=== PATIENT | male | born 1940 | race Caucasian/White ===

== ENCOUNTER 2019-08-07 12:09 | Outpatient (CLI) | payer MEDICARE, SELFPAY ==
--- NOTE | 2019-08-07 13:03 | ECHO_ITS ---
Patient Info Name: Jason Justin Age: 79 years : 1940 Gender: Male Ht: 68 in Wt: 177 lbs BSA: 1.98 m2 HR: 90 bpm BP: 146 / 82 mmHg Technical Quality: Fair Exam Date: 08/07/2019 1:14 PM Exam Location: [facility] Patient Status: Outpatient Admit Date: 08/07/2019 Staff Ordering Physician: Tonja Arias Spreader Operator: Slade Weston, CHIOMA, RT Attending Provider: Tonja Arias Referring Physician: Juana MAURER; Exam Type: CA echo doppler color flow Study Info Indications R42 - Dizziness and giddiness Complete two-dimensional, color flow and Doppler transthoracic echocardiogram is performed. Summary 1. No apical images acquired. Cannot assess complete wall motion analysis. 2. Left ventricular chamber dimension is normal. 3. Left ventricular systolic function is normal, estimated at 55-60%. 4. There is mildly increased left ventricular wall thickness. 5. The left ventricular diastolic function is grade I diastolic dysfunction. 6. E/e' 6 is not elevated. 7. The aortic valve is not well visualized. 8. There is mild aortic valve stenosis based on a peak velocity of 202 cm/s, mean gradient of 6 mmHg, and aortic valve area of 2.0 cm2. 9. There is moderate aortic valve sclerosis. 10. There is trace aortic valve regurgitation. 11. There is trace pulmonic regurgitation. Left Ventricle No apical images acquired. Cannot assess complete wall motion analysis. E/e' 6 is not elevated. Left ventricular chamber dimension is normal. Left ventricular systolic function is normal, estimated at 55-60%. There is mildly increased left ventricular wall thickness. The left ventricular diastolic function is grade I diastolic dysfunction. Right Ventricle Right ventricular chamber dimension is not well visualized. Left Atria Left atrial chamber dimension is normal. Right Atria Right atrial chamber dimension is not well visualized. Aortic Valve There is mild aortic valve stenosis based on a peak velocity of 202 cm/s, mean gradient of 6 mmHg, and aortic valve area of 2.0 cm2. Cannot determine number of aortic valve leaflets. The aortic valve is not well visualized. There is moderate aortic valve sclerosis. There is trace aortic valve regurgitation. Pulmonic Valve There is trace pulmonic regurgitation. Mitral Valve There is no mitral valve stenosis. There is no mitral valve regurgitation. Tricuspid Valve The tricuspid valve leaflets are not well visualized. Pericardium/Pleural There is no pericardial effusion. Inferior Vena Cava Normal inferior vena cava with >50% collapse upon inspiration consistent with normal right atrial pressure, 5 mmHg. Aorta The aortic root size at the sinus of Valsalva is not well visualized. Left Ventricular Outflow Tract Name Value Normal LVOT 2D LVOT Diameter 2.0 cm LVOT Doppler LVOT Peak Gradient 6 mmHg LVOT Mean Gradient 3 mmHg LVOT VTI 21 cm LVOT VTI/AV VTI Ratio 0.6 LVOT Stroke Volume 68 ml
== END 2019-08-07 12:10 | disposition home or self-care (01) ==
PROVIDERS: PCP Internal Medicine; Visit Provider Nurse Practitioner
DX: R42 Dizziness and giddiness (principal); I35.8 Other nonrheumatic aortic valve disorders
CPT/HCPCS: 93306

== ENCOUNTER 2019-11-20 14:20 | Outpatient (CLI) | payer MEDICARE, SELFPAY ==
[2019-11-20 15:22] LABS: Calcium 10.1 mg/dL (8.4-10.2)
[2019-11-20 15:34] LABS: Parathyroid Intact 140.7 pg/mL (7.5-53.5)
== END 2019-11-20 14:21 | disposition home or self-care (01) ==
PROVIDERS: PCP Internal Medicine; Visit Provider Nurse Practitioner
DX: E34.9 Endocrine disorder, unspecified (principal)
CPT/HCPCS: 36415; 82310; 83970

== ENCOUNTER 2020-01-23 14:20 | Outpatient (CLI) | payer MEDICARE, SELFPAY ==
[2020-01-23 15:12] LABS: Albumin Level 4.4 g/dL (3.5-5.1); Anion Gap 7 mmol/L (8-16); Blood Urea Nitrogen 18 mg/dL (9-20); Calcium 9.6 mg/dL (8.4-10.2); Carbon Dioxide 32 mmol/L (22-30); Chloride 97 mmol/L (98-107); Estimated Glomerular Filt Rate 53; Glucose 142 mg/dL (75-110); Phosphorus 3.4 mg/dL (2.5-4.5); Sodium 136 mmol/L (137-145)
[2020-01-23 15:23] LABS: Parathyroid Intact 138.5 pg/mL (7.5-53.5)
[2020-01-23 15:41] LABS: Cortisol Random 3.91 ug/dL
[2020-01-23 15:57] LABS: Vitamin D 25 Hydroxy 48.9 ng/mL
[2020-01-28 05:37] LABS: Calcitonin 11 pg/mL (<=10)
[2020-01-28 09:46] LABS: Metanephrine, Free <25 pg/mL (<=57); Normetanephrine, Free 216 pg/mL (<=148); Total, Free (MN + NMN) 216 pg/mL (<=205)
[2020-01-31 10:31] LABS: PRA 2.17 ng/mL/h (0.25-5.82)
== END 2020-01-23 14:21 | disposition home or self-care (01) ==
PROVIDERS: PCP Internal Medicine; Visit Provider Internal Medicine Endocrinology, Diabetes & Metabolism
DX: E27.8 Other specified disorders of adrenal gland (principal); E21.3 Hyperparathyroidism, unspecified; Z86.018 Personal history of other benign neoplasm
CPT/HCPCS: 36415; 80048; 82040; 82088; 82306; 82308; 82533; 83835; 83970; 84100; 84244

== ENCOUNTER 2020-02-11 14:19 | Outpatient (CLI) | payer MEDICARE, SELFPAY ==
--- NOTE | ~2020-02-11 | US_ITS ---
EXAMINATION: US thyroid DATE: 02/11/2020 14:56 INDICATION: Hyperparathyroidism TECHNIQUE: Multiple ultrasound images of the thyroid were obtained. COMPARISON: 04/25/[address] dated 04/16/2019 FINDINGS: The right thyroid lobe measures 3.8 x 1.8 x 1.6 cm. The left thyroid lobe measures 4.9 x 1.7 x 1.6 c m. Right increase in size of a previously 1.5 cm, now 1.7 x 1.5 x 1.5 cm very hypoechoic solid nodule at the inferior right thyroid which is wider than tall with smooth margins with rim calcification an d internal vascularity on the color Doppler (TI-RADS 5, highly suspicious , FNA if >=1.0 cm, annual f ollowup is >0.5 cm). 1.1 x 1.0 x 0.9 cm wider than tall very hypoechoic nodule without rim calcificat ion or internal lesser flow on color Doppler, equivocal for cystic nodule which would be TI RADS 1 or solid which would be (TI-RADS 4, moderately suspicious , FNA if >=1.5 cm, annual followup is >1 cm). There are couple subcentimeter nodules in the left thyroid including a 5 mm hypoechoic nodules in th e superficial left thyroid similarly either TI RADS 1 or TI RADS 4 and a 7 mm taller than wide hypere choic nodule TI RADS 5. IMPRESSION: 1. Multinodular goiter. Would recommend ultrasound-guided biopsy of the largest 1.7 cm TI-RADS 5 nodu le at the inferior right thyroid. Reviewed, dictated and finalized at location A. IMPRESSION: 1. Multinodular goiter. Would recommend ultrasound-guided biopsy of the largest 1.7 cm TI-RADS 5 nodule at the inferior right thyroid.
== END 2020-02-11 14:20 | disposition home or self-care (01) ==
LOC: ANHIMG 14:20
PROVIDERS: PCP Internal Medicine; Visit Provider Internal Medicine Endocrinology, Diabetes & Metabolism
DX: E21.3 Hyperparathyroidism, unspecified (principal); E04.2 Nontoxic multinodular goiter
CPT/HCPCS: 76536

== ENCOUNTER 2020-02-13 08:17 | Outpatient (CLI) | payer MEDICARE, SELFPAY ==
--- NOTE | ~2020-02-13 | DEXA_ITS ---
Bone Density Report Name: Jason Justin Age: 79 Sex: Male Ethnicity: White Date of : 1940 Indication: prior fracture; cancer; Referring Provider: Portia Fried Study: Bone densitometry was performed. Exam Date: February 13, 2020 Accession number: [id number] Bone Density: Region BMD T-score Z-score Classification AP Spine (L1-L4) 0.819 -2.5 -1.3 Osteoporosis Femoral Neck (Left) 0.577 -2.6 -1.0 Osteoporosis Total Hip (Left) 0.879 -1.0 0.1 Normal Total Hip Bilateral Avg 0.833 -1.3 -0.2 Osteopenia Femoral Neck (Right) 0.635 -2.2 -0.6 Osteopenia Total Hip (Right) 0.786 -1.6 -0.5 Osteopenia World Health Organization criteria for BMD impression classify patients as: Normal (T-score at or above -1.0), Osteopenia (T-score between -1.0 and -2.5), or Osteoporosis (T-score at or below -2.5). 10-year Fracture Risk: FRAX not reported because: Some T-score for Spine Total or Hip Total or Femoral Neck at or below -2.5 Clinical Information Provided by Patient: Has had a low trauma fracture Has the following medical conditions: Cancer Patient maximum height was 66 No regular weight bearing exercise Drinks caffeinated beverages Impression: The patient has established osteoporosis, based on the Left Femoral Neck T-score and the existence of a prior fracture. The patient has risk factors, including: previous fracture. Discussion: HIGH RISK OF FRACTURE. BONE DENSITY IS UNDESIRABLY LOW AT ONE OR MORE SKELETAL SITES, CONSISTENT WITH OSTEOPOROSIS. This patient's lowest T-score, in a patient who has previously fractured, meets the World Health Organization's (WHO) criteria for severe osteoporosis. In untreated patients, the risk of osteoporotic fracture increases approximately two-fold for each 1.0 SD decrease in T-score. Low bone density is not the only risk factor for fracture; also consider factors such as patient's age, frailty or poor health, risk of falling, risk of injury, previous osteoporotic fracture, family history of osteoporosis, cigarette smoking, low body weight, etc. Not everyone with low bone mineral density has osteoporosis; osteomalacia and other metabolic bone disorders should also be considered. Patients who have osteoporosis should be evaluated for specific diseases and conditions (secondary causes) that may cause or contribute to bone loss. The National Osteoporosis Foundation (NOF) recommends pharmacologic intervention for men with BMD at this level (a T-score of -2.5 or below). The patient should follow a healthful lifestyle (good nutrition with adequate calcium and vitamin D, and appropriate weight-bearing exercise). Follow-Up: Consider repeating this study in 2 years to reassess this patient's status, or sooner if there is some new clinical indication. Reported by: [facility] on 02/13/2020 8:47:00 AM.
[2020-02-13 09:25] LABS: Creatinine 24 Hour Urine 1.1 gm/24 (1.0-2.0); Total Volume 24 Hour Urine 1400 ml
[2020-02-17 19:29] LABS: Total Volume 1500 mL; Urine Calcium 4.5 mg/dL
== END 2020-02-13 08:18 | disposition home or self-care (01) ==
PROVIDERS: PCP Internal Medicine; Visit Provider Internal Medicine Endocrinology, Diabetes & Metabolism
DX: E21.3 Hyperparathyroidism, unspecified (principal); M81.0 Age-related osteoporosis without current pathological fracture; M85.851 Other specified disorders of bone density and structure, right thigh
CPT/HCPCS: 77080; 81050; 82340; 82570

== ENCOUNTER 2020-03-05 10:10 | Outpatient (CLI) | payer MEDICARE, SELFPAY ==
--- NOTE | ~2020-03-05 | US_ITS ---
EXAMINATION: US FNA w image guidance DATE: 03/05/2020 10:52 INDICATION: TI RADS 5 right thyroid nodule. TECHNIQUE: A time-out was performed to verify the patient's name, date of , and procedure to be performed . The procedure and its benefits and risks were discussed with the patient. Risks specifically discus sed included bleeding and infection. The patient understood the risks and agreed to proceed. The neck was prepped and draped in the usual sterile manner. 3 mL 1% lidocaine was used for local anesthesia . 6 passes were made with a 25G needle into the lesion. Appropriate needle location was documented with continuous sonographic guidance. The specimens were passed to the charge histotechnologist in the room. A sterile bandage was applied. There were no immediate complications. FINDINGS: Grayscale ultrasound images demonstrate biopsy needles advanced into a 1.6 cm solid TI RADS 5 right t hyroid nodule with partial peripheral rim calcification. IMPRESSION: 1. Successful ultrasound-guided fine needle aspiration of the 1.6 cm TI RADS 5 right thyroid nodule of concern. Reviewed, dictated and finalized at location A.
== END 2020-03-05 10:11 | disposition home or self-care (01) ==
PROVIDERS: PCP Internal Medicine; Visit Provider Internal Medicine Endocrinology, Diabetes & Metabolism
DX: E04.2 Nontoxic multinodular goiter (principal)
CPT/HCPCS: 10005; 88173; 88305

== ENCOUNTER 2020-04-14 12:14 | Outpatient (CLI) | payer MEDICARE, SELFPAY ==
--- NOTE | ~2020-04-14 | CT_ITS ---
EXAMINATION: CT chest wo con DATE: 04/14/2020 12:46 INDICATION: Small cell lung cancer. TECHNIQUE: Computed tomography (CT) of the chest was performed without intravenous contrast. The dose -length product was 320.15 mGy-cm. Automated exposure control and iterative reconstruction technique were employed. COMPARISON: Comparison to multiple prior studies sequentially, with oldest reviewed study dated 03/15. FINDINGS: There is a battery pack in the left chest. Heart size normal. There is atherosclerosis. No thoracic lymphadenopathy. No significant pleural or pericardial effusion. There are changes of right upper lobectomy. There is emphysema. There is chronic scarring and pleural thickening of the right mary ellen ng. There is evidence for chronic granulomatous disease. There are possible gallstones versus sludge. Stable nodular thickening of the left adrenal gland, likely related to adenomas. Status post right n ephrectomy. There is thoracic spondylosis. IMPRESSION: 1. No significant interval change. No evidence for metastatic disease. Reviewed, dictated and finalized at location B. ITECTURAL INSPECTOR
== END 2020-04-14 12:15 | disposition home or self-care (01) ==
PROVIDERS: PCP Internal Medicine; Visit Provider Internal Medicine Medical Oncology
DX: C34.90 Malignant neoplasm of unspecified part of unspecified bronchus or lung (principal)
CPT/HCPCS: 71250

== ENCOUNTER 2020-05-10 08:22 | Outpatient (CLI) | payer MEDICARE, SELFPAY ==
[2020-05-10 10:38] LABS: Cortisol Random 1.05 ug/dL
[2020-05-13 11:24] LABS: Metanephrine, Free <25 pg/mL (<=57); Normetanephrine, Free 306 pg/mL (<=148); Total, Free (MN + NMN) 306 pg/mL (<=205)
== END 2020-05-10 08:23 | disposition home or self-care (01) ==
PROVIDERS: PCP Internal Medicine; Visit Provider Internal Medicine Endocrinology, Diabetes & Metabolism
DX: E27.8 Other specified disorders of adrenal gland (principal); Z86.018 Personal history of other benign neoplasm
CPT/HCPCS: 36415; 82533; 83835

== ENCOUNTER 2020-06-16 12:30 | Outpatient (RCR) | payer MEDICARE, SELFPAY ==
--- NOTE | 2020-06-02 15:48 | PTOPEVAL ---
PHYSICAL THERAPY EVALUATION Thank you for referring Jason Justin Sr. to [facility].?John was evaluated with a dx of gait abnormalities. The patient is scheduled to be seen for therapy? 2 x/week for 4 weeks. Please review, sign, date and return this plan of care TERESA. I agree with and certify that the following plan of care is medically necessary. Referring Physician Date Attending Provider: Angelo Galvan DO Referring Provider: Angelo Galvan DO *PT Outpatient Evaluation Start: 06/02/20 14:02 Freq: Status: Active Protocol: Document 06/02/20 14:03 MLV (Rec: 06/02/20 15:23 [facility] [id number]) Assessment Status Evaluation Evaluation Information Problem Diagnosis gait abnormalities/fall risk Onset 5 months Cause none Additional Evaluation Detail The patient reports an occasional off step but doesn't lose his balance or fall. The patient has not fallen and has no occurrence of dizziness. The patient states he first noticed it about 4-5 months ago. Patient lives home with his daughter, and has no activity limits; has a curtis to do his yard. The patient does his housework, goes out often socially. Subjective Information Patient has a right TKA that Query Text:As Reported By Patient/ has burning if walks Family excessively. Pain Assessment Timing of Pain Assessment Timing of Pain Assessment Assessment Self Report Self Report Pain Level 0 Pain Score Pain Score 0: Self Report Lower Extremity Range of Motion General Lower Extremity Range of Motion Reason Not Measured WFL/Left,WFL/Right Lower Extremity Muscle Strength Testing General Lower Extremity Strength Reason Not Measured WNL/Left,WNL/Right Posture Posture Standing Position Posture Evaluation View Lateral Head/C-Spine Posture Excess Extension,Forward Head Thoracic Spine Posture Increased Kyphosis Lumbar Spine Posture Increased Lordosis Shoulder Posture (L) Forward,(R) Forward Scapula Posture (L) Protracted,(R) Protracted Arm Posture (L) Internally Rotated,(R) Internally Rotated Weight Distribution Balanced Balance Assessment Lozoya Balance Assessment Sitting to Standing Independent w/out Hands Unsupported Stance Ability Safely- 2 minutes Sitting Unsupported, Feet on Floor Safely- 2 minutes Standing to Sit
--- NOTE | 2020-06-09 11:26 | PCPTNOTE ---
Patient called & cancelled scheduled appointment this date and the 29the appt, due to possible COVID exposure- awaiting test results to determine when he can return to therapy.
--- NOTE | 2020-06-14 12:58 | PCPTNOTE ---
Patient called & cancelled scheduled appointment this date due to forgetting about today's appt. PT called patient and he is negative for his COVID test and plans to come to his next appt on 06/16/20.
--- NOTE | 2020-06-21 17:06 | PCPTNOTE ---
Patient did not show up for scheduled appointment this date.
--- NOTE | 2020-06-23 13:53 | PCPTNOTE ---
Patient did not show up for scheduled appointment this date. PT contacted patient by phone. Patient reports not feeling well due to other medical issues and wants to cancel his last appt. and todays appointment. Patient plans to request new order for PT later, when other medical issues are stabilized.
--- NOTE | 2020-06-23 13:55 | PCPTNOTE ---
Admitting Provider: Attending Provider: Angelo Galvan DO Patient:Jason Justin Sr. Date of :1940 Patient has not returned for any further treatments since 06/16/2020, therefore he will be discharged at this time. Patient?s initial visit was on 06/02/2020 14:00 and he had a total of 3 visits. PT called patient and he reports not feeling well enough to do therapy at this time, cancelled all other visits until current medical issues are better. The goals have not been met. Thank you for referring this patient to [facility]. Please review, sign, date and return this discharge summary TERESA. I have been updated about the patient's current status and I agree with discharge from the above service at this time. Referring Physician Date
== END 2020-06-24 07:34 | disposition home or self-care (01) ==
LOC: ANHPT 12:30
PROVIDERS: PCP Internal Medicine; Referring Provider Internal Medicine; Visit Provider Internal Medicine
DX: R26.89 Other abnormalities of gait and mobility (principal)
CPT/HCPCS: 97110; 97116; 97161

== ENCOUNTER 2020-09-06 14:06 | Outpatient (CLI) | payer MEDICARE, SELFPAY ==
[2020-09-06 15:11] LABS: Parathyroid Intact 164.8 pg/mL (7.5-53.5)
[2020-09-06 16:24] LABS: Vitamin D 25 Hydroxy 43.8 ng/mL
[2020-09-09 06:58] LABS: Metanephrine, Free <25 pg/mL (<=57); Normetanephrine, Free 271 pg/mL (<=148); Total, Free (MN + NMN) 271 pg/mL (<=205)
== END 2020-09-06 14:07 | disposition home or self-care (01) ==
PROVIDERS: PCP Internal Medicine; Visit Provider Internal Medicine Endocrinology, Diabetes & Metabolism
DX: E21.3 Hyperparathyroidism, unspecified (principal); E27.8 Other specified disorders of adrenal gland; M81.0 Age-related osteoporosis without current pathological fracture; Z86.018 Personal history of other benign neoplasm
CPT/HCPCS: 36415; 82306; 83835; 83970

== ENCOUNTER 2020-12-15 13:55 | Outpatient (CLI) | payer MEDICARE, SELFPAY ==
[2020-12-15 15:14] LABS: Alanine Aminotransferase 17 U/L (4-50); Alkaline Phosphatase 64 U/L (38-126); Anion Gap 8 mmol/L (8-16); Aspartate Amino Transferase 23 U/L (17-59); Bilirubin,Total 0.3 mg/dL (0.2-1.3); Blood Urea Nitrogen 15 mg/dL (9-20); Calcium 9.4 mg/dL (8.4-10.2); Carbon Dioxide 31 mmol/L (22-30); Chloride 96 mmol/L (98-107); Cholesterol 118 mg/dL (0-200); Estimated Glomerular Filt Rate 53; Glucose 105 mg/dL (65-110); HDL Direct 58 mg/dL; Potassium 4.1 mmol/L (3.4-5.0); Sodium 135 mmol/L (137-145); Triglycerides 117 mg/dL (<150)
[2020-12-15 15:27] LABS: LDL Cholesterol Direct 40 mg/dL
[2020-12-15 16:34] LABS: Vitamin D 25 Hydroxy 40.9 ng/mL
== END 2020-12-15 13:56 | disposition home or self-care (01) ==
PROVIDERS: PCP Internal Medicine; Visit Provider Nurse Practitioner
DX: E78.5 Hyperlipidemia, unspecified (principal); F32.9 Major depressive disorder, single episode, unspecified; N18.30 Chronic kidney disease, stage 3 unspecified
CPT/HCPCS: 36415; 80053; 80061; 82306; 84443

== ENCOUNTER 2020-12-26 16:38 | Emergency (ER) | payer MEDICARE, SELFPAY ==
[2020-12-26 16:43] VITALS: BP 127/64; PULSE 89; RESP 16; TEMP 36.5; O2SAT 99
[2020-12-26 16:51] VITALS: BP 127/64; PULSE 89; RESP 16; TEMP 36.5; O2SAT 99
[2020-12-26 16:57] LABS: Glucose Point of Care 114 mg/dl (65-105)
--- NOTE | 2020-12-26 17:12 | ED.GENADULT ---
HPI - General Adult General Chief complaint: Neuro Symptoms/Deficit Stated complaint: TONGUE NUMBNESS/BLURRED VISION Source: patient and RN notes reviewed Limitations: no limitations History of Present Illness HPI narrative: The right-handed patient-- who on multiple medications inc Eliquis and for COPD, A. fib, CKD-- presents with weakness. Patient states he was ambulating at a store when he felt the onset of numb tongue , associated with slightly slurred speech that resolved after 10 minutes. Bystander family members indicated he commented he had a headache, was pale ,lightheaded and weak and needed to sit down. He came here and has started to feel better with resolution of numbness but still has headache. No fever, speech?visual changes now, lateralizing weakness, chest?abdominal pain, palpitations, vomiting/diarrhea/dehydration-he ate earlier today. 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 Patient declines referral to hospital AMA, with family members present Related Data Home Medications Medication Instructions Recorded Confirmed Adult One Daily Multivitamin 1 tab-cap BYMOUTH DAILY 03/16/19 12/26/20 venlafaxine 150 mg PO DAILY 03/16/19 12/26/20 fluticasone fur. 100 mcg-umeclid 1 inhalation INHALATION DAILY 09/22/19 12/26/20 62.5 mcg-vilant 25 mcg inhalat.powder omeprazole 20 mg PO DAILY 12/26/20 12/26/20 Allergies Allergy/AdvReac Type Severity Reaction Status Date / Time codeine AdvReac Intermediate Nausea and Verified 12/26/20 16:47 Vomiting Review of Systems Review of Systems: General/Constitutional: No weight loss,fever Eyes: N0: Redness,discharge Ears/Nose/Throat: No: Epistaxis,ear discharge Respiratory: Denies: Hemoptysis Gastrointestinal: No Vomiting, Bleeding-rectal Skin: No Lumps, eruption Neurologic: No Focal Weakness,Sz Hematologic: Denies: Petechiae/Purpura Psychiatric: No: Suicida ideationl All Other Systems: Reviewed and Negative [facility] Past Medical History Medical History (Updated 12/27/20 @ 14:49 by Yury Walton MD) AAA (abdominal aortic aneurysm) without rupture Aortic valve stenosis Arthritis Atrial fibrillation Benign prostatic hyperplasia Cancer Cataract Chronic obstructive lung disease COPD (chronic obstructive pulmonary disease) Depression Depression Essential hypertension Gastroesophageal reflux disease H/O: HTN (hypertension) Hearing loss Hyperlipidemia Hypertension Lung cancer Malignant tumor of prostate Normal colonoscopy Stage 3 chronic kidney disease Tobacco dependence syndrome Surgical History Surgical History History of knee replacement History of lung surgery History of right nephrectomy Family History Family History Sibling Family history of malignant neoplasm of bone Family history of malignant neoplasm of breast in first degree relative Mother Family history of congestive heart failure Other Acute anxiety CHF (congestive heart failure), NYHA class I Cancer Cataract Depression Diabetes mellitus Heart disease Psychiatric complaint Social History Social History Smoking packs per day: 1.5 Smoking cigarettes per day: 30.0 Years smoked: 50 Smoking pack-years: 75.00 Smoking status: Former smoker Smoking end date: 06/12/14 Alcohol intake: never Gender identity (if verbalized by the patient): Male Spiritual care concerns: No Comments At time of signature, agree with nursing past medical, surgical, social and family history. There is no relevant family history pertinent to the presenting complaint Exam Narrative: General Appearance: Aged/ pale appearing; No distress; GCS 15, NIHSS 0 EYE: PERR
--- NOTE | 2020-12-26 17:52 | ECG_ITS ---
Measurements Intervals [place] Rate: 82 P: 84 WI: 241 QRS: 70 QRSD: 150 T: 66 QT: 395 QTc: 463 Interpretive Statements SINUS RHYTHM WITH FIRST DEGREE AV BLOCK VENTRICULAR PREMATURE COMPLEX RIGHT BUNDLE BRANCH BLOCK BASELINE ARTIFACT- I, II, III, AVR, AVL, AVF ABNORMAL ECG Electronically Signed On 12-27-2020 17:13:30 CDT by Marc Flowers D.O.
== END 2020-12-26 17:25 | disposition left against medical advice (07) ==
PROVIDERS: Emergency Provider Emergency Medicine; PCP Internal Medicine
DX: R53.1 Weakness (principal); R51.9 Headache, unspecified; Z87.891 Personal history of nicotine dependence; I35.0 Nonrheumatic aortic (valve) stenosis; M19.90 Unspecified osteoarthritis, unspecified site; I48.91 Unspecified atrial fibrillation; N40.0 Benign prostatic hyperplasia without lower urinary tract symptoms; J44.9 Chronic obstructive pulmonary disease, unspecified; K21.9 Gastro-esophageal reflux disease without esophagitis; E78.5 Hyperlipidemia, unspecified; I13.10 Hypertensive heart and chronic kidney disease without heart failure, with stage 1 through stage 4 chronic kidney disease, or unspecified chronic kidney disease; N18.30 Chronic kidney disease, stage 3 unspecified; Z85.46 Personal history of malignant neoplasm of prostate; Z85.118 Personal history of other malignant neoplasm of bronchus and lung; Z96.651 Presence of right artificial knee joint; N15.1 Renal and perinephric abscess
CPT/HCPCS: 82948; 93005; 99213; G0463

== ENCOUNTER 2021-01-05 10:12 | Outpatient (CLI) | payer MEDICARE, SELFPAY ==
--- NOTE | ~2021-01-05 | CT_ITS ---
EXAMINATION: CT brain wo con DATE: 01/05/2021 10:44 INDICATION: Headache, unspecified. TECHNIQUE: Computed tomography (CT) of the head was performed without intravenous contrast. The mA wa s adjusted according to patient size. Iterative reconstruction technique was employed. The dose-lengt h product was 605.33 mGy-cm. COMPARISON: Head CT 08/31/2014 FINDINGS: There is no intracranial hemorrhage, acute infarction, or abnormal intracranial mass lesion . The ventricles are normal in size. There are likely changes of ocular lens replacement surgeries. T here is mild mucosal thickening in the paranasal sinuses. There are changes of right mastoidectomy. T here is a left otomastoid effusion. There is a chronic 9 mm subcutaneous mass in left frontal scalp, likely a sebaceous cyst. IMPRESSION: 1. Normal brain. 2. Left otomastoid effusion again seen. Reviewed, dictated and finalized at location A.
== END 2021-01-05 10:13 | disposition home or self-care (01) ==
LOC: ANHIMG 10:14
PROVIDERS: PCP Internal Medicine; Visit Provider Internal Medicine
DX: R51.9 Headache, unspecified (principal)
CPT/HCPCS: 70450

== ENCOUNTER 2021-04-11 14:01 | Outpatient (CLI) | payer MEDICARE, SELFPAY ==
--- NOTE | ~2021-04-11 | CT_ITS ---
EXAMINATION:CT diagnostic chest wo con DATE: 04/11/2021 14:24 INDICATION: Small cell carcinoma of lung. TECHNIQUE: Computed tomography (CT) of the chest was performed without intravenous contrast. Automate d exposure control and iterative reconstruction technique were employed. The dose-length product (DLP ) was 202.83 mGy-cm. COMPARISON: Chest CT 04/14/2020 FINDINGS: There are changes of right upper lobectomy. There is mild scarring at the lung apices. Ther e is severe emphysema. A calcified right lung nodule is consistent with old granulomatous disease. Th ere is mild atelectasis in right middle lobe and right lower lobe. There is mild atelectasis in left lower lobe. No pleural effusion. There are nodules in the thyroid measuring up to 14 mm, likely not c linically significant. The heart size is normal. There are coronary artery calcifications. There are calcifications of aortic valve. No pericardial effusion. There are changes of right adrenalectomy and right nephrectomy. There is severe thoracic spondylosis. There is a subcutaneous implant in left ant erior chest wall. IMPRESSION: 1. No evidence of metastatic disease. Reviewed, dictated and finalized at location A. N CHAIN MARKER
== END 2021-04-11 14:02 | disposition home or self-care (01) ==
LOC: ANHIMG 14:03
PROVIDERS: PCP Internal Medicine
DX: C34.90 Malignant neoplasm of unspecified part of unspecified bronchus or lung (principal)
CPT/HCPCS: 71250

== ENCOUNTER → 2021-05-28 02:26 | Outpatient (CLI) | payer MEDICARE, SELFPAY ==
[2021-05-28 17:34] LABS: Influenza A QL RT-PCR Negative (Negative); Influenza B QL RT-PCR Negative (Negative); SARS-CoV-2 RNA PCR Negative
== END ==
PROVIDERS: PCP Internal Medicine; Visit Provider Nurse Practitioner
DX: R68.89 Other general symptoms and signs (principal); Z20.822 Contact with and (suspected) exposure to COVID-19
CPT/HCPCS: 87502; 87804; C9803; U0003; U0005

== ENCOUNTER 2021-11-23 10:47 | Outpatient (CLI) | payer MEDICARE, SELFPAY ==
--- NOTE | ~2021-11-23 | US_ITS ---
EXAMINATION: US aorta DATE: 11/23/2021 14:51 CDT INDICATION: Abdominal aortic aneurysm TECHNIQUE: Grayscale, color Doppler, and pulsed Doppler images of the aorta and common iliac arteries were obtained. COMPARISON: None. FINDINGS: The proximal aorta measures 2.1 cm greatest sagittal dimension. The mid aorta measures 2.3 cm greates t sagittal dimension. The distal aorta measures 3 cm greatest sagittal dimension. The right common in ternal iliac artery measures 6 mm. The left common iliac artery measures 5 mm. IMPRESSION: 1. Mild infrarenal abdominal aortic aneurysm of the distal abdominal aorta measuring 3 cm. Reviewed, dictated and finalized at location A. IMPRESSION: 1. Mild infrarenal abdominal aortic aneurysm of the distal abdominal aorta kishan uring 3 cm.
[2021-11-23 12:11] LABS: Alanine Aminotransferase 16 U/L (6-50); Alkaline Phosphatase 68 U/L (38-126); Anion Gap 3 mmol/L (8-16); Aspartate Amino Transferase 20 U/L (17-59); Bilirubin,Total 0.2 mg/dL (0.2-1.3); Blood Urea Nitrogen 24 mg/dL (9-20); Carbon Dioxide 31 mmol/L (22-30); Chloride 102 mmol/L (98-107); Cholesterol 114 mg/dL (0-200); Estimated Glomerular Filt Rate 53; Glucose 154 mg/dL (65-110); HDL Direct 44 mg/dL; Potassium 4.1 mmol/L (3.4-5.0); Sodium 136 mmol/L (137-145); Triglycerides 123 mg/dL (<150)
[2021-11-23 12:22] LABS: LDL Cholesterol Direct 33 mg/dL
[2021-11-23 19:50] LABS: Prostate Specific Antigen < 0.1 ng/mL (< OR = 4.0)
[2021-12-02 16:37] LABS: Parathyroid Hormone Related Pr 14 pg/mL (11-20)
== END 2021-11-23 10:48 | disposition home or self-care (01) ==
PROVIDERS: PCP Internal Medicine; Visit Provider Nurse Practitioner
DX: C61 Malignant neoplasm of prostate (principal); I71.4 Abdominal aortic aneurysm, without rupture; F32.9 Major depressive disorder, single episode, unspecified; N25.81 Secondary hyperparathyroidism of renal origin; E78.5 Hyperlipidemia, unspecified
CPT/HCPCS: 36415; 76775; 80053; 80061; 83519; 84153; 84443

== ENCOUNTER 2022-02-08 12:26 | Outpatient (CLI) | payer MEDICARE, SELFPAY ==
--- NOTE | 2022-02-08 | ECHO_ITS ---
Patient Info Name: Jason Justin Age: 81 years : 1940 Gender: Male Ht: 66 in Wt: 165 lbs BSA: 1.88 m2 HR: 86 bpm BP: 132 / 80 mmHg Exam Date: 02/08/2022 1:18 PM Exam Location: [facility] Patient Status: Outpatient Admit Date: 02/08/2022 Staff Ordering Physician: Annia, Se Mills MD Software Test Manager: Deandre Bustillos RDCS Attending Provider: Annia, Se Mills MD Referring Physician: Annia LEE; Exam Type: CA echo doppler color flow Study Info Indications R06.02 - Shortness of breath Complete two-dimensional, color flow and Doppler transthoracic echocardiogram is performed. Summary 1. Technically difficult study with limited views. 2. Left ventricular systolic function is normal, estimated at 55-60%. 3. The left ventricular diastolic function is grade I diastolic dysfunction. 4. Right ventricular systolic function is mildly reduced. 5. Valves not well visualized. Left Ventricle Left ventricular chamber dimension is normal. Left ventricular systolic function is normal, estimated at 55-60%. The left ventricular diastolic function is grade I diastolic dysfunction. Right Ventricle Right ventricular systolic function is mildly reduced. Right ventricular chamber dimension is normal. Left Atria Left atrial chamber dimension is normal. Right Atria Right atrial chamber dimension is normal. Aortic Valve The aortic valve is not well visualized. There is trace aortic valve regurgitation. Pulmonic Valve The pulmonic valve is not well visualized. Mitral Valve The mitral valve has not well visualized. There is mild mitral valve regurgitation. Tricuspid Valve The tricuspid valve leaflets are not well visualized. Pericardium/Pleural There is no pericardial effusion. Inferior Vena Cava Normal inferior vena cava with >50% collapse upon inspiration consistent with Empty right atrial pressure, Empty. Mitral Valve Name Value Normal MV Doppler MV Peak Gradient 2 mmHg MV Mean Gradient 1 mmHg Report Signatures
== END 2022-02-08 12:27 | disposition home or self-care (01) ==
PROVIDERS: PCP Internal Medicine; Visit Provider Internal Medicine Pulmonary Disease
DX: R06.02 Shortness of breath (principal)
CPT/HCPCS: 93306

== ENCOUNTER 2022-02-22 08:57 | Outpatient (CLI) | payer MEDICARE, SELFPAY ==
--- NOTE | ~2022-02-22 | CT_ITS ---
EXAMINATION:CT diagnostic chest wo con DATE: 02/22/2022 09:26 INDICATION: Small cell carcinoma of lung. TECHNIQUE: Computed tomography (CT) of the chest was performed without intravenous contrast. Automate d exposure control and iterative reconstruction technique were employed. The dose-length product (DLP ) was 196.96 mGy-cm. COMPARISON: Chest CT 04/11/2021 FINDINGS: There are changes of right upper lobectomy. There is severe emphysema. There is mild scarri ng in the lungs, worst at the lung apices. A calcified right lung nodule is consistent with old granu lomatous disease. There is mild atelectasis bilaterally. No pleural effusion. The heart size is primo l. There are coronary artery calcifications. No pericardial effusion. There are nodules in the thyroi d measuring up to 16 mm, likely not clinically significant given the patient's age. There is an elect ronic implant in left anterior chest wall. There are changes of right nephrectomy and adrenalectomy. There is severe cervical and thoracic spondylosis. There is mild chronic anterior wedging of multiple thoracic vertebral bodies. IMPRESSION: 1. No evidence of metastatic disease. Reviewed, dictated and finalized at location A.
== END 2022-02-22 08:58 | disposition home or self-care (01) ==
PROVIDERS: PCP Internal Medicine; Visit Provider Internal Medicine Medical Oncology
DX: C34.90 Malignant neoplasm of unspecified part of unspecified bronchus or lung (principal); I25.10 Atherosclerotic heart disease of native coronary artery without angina pectoris; M47.813 Spondylosis without myelopathy or radiculopathy, cervicothoracic region
CPT/HCPCS: 71250

== ENCOUNTER 2022-03-08 12:26 | Outpatient (CLI) | payer MEDICARE, SELFPAY ==
--- NOTE | 2022-03-08 16:40 | WPDSIXMINUTE ---
Six Minute Walk Procedure Procedure Performed Pulmonary Stress Test (6 min walk) Six Minute Walk Six Minute Walk: This is a 6 minute walk test. The test was performed and interpreted in accordance with the 2014 ERS/ATS task force guidelines. of note patient stopped once for shortness of breath for 20 seconds. Findings: The patient's resting room air oxygen saturation measured by pulse oximetry was 98% and heart rate was 78 bpm. Patient ambulated for 305 meters and oxygen saturation remained 95 to 99%. Heart rate at the end of the study was 118 bpm. The patient did not qualify for supplemental oxygen at rest or with ambulation. There are no prior studies for comparison.
== END 2022-03-08 12:27 | disposition home or self-care (01) ==
PROVIDERS: PCP Family Medicine Adolescent Medicine; Visit Provider Internal Medicine Pulmonary Disease
DX: J44.9 Chronic obstructive pulmonary disease, unspecified (principal)
CPT/HCPCS: 94618

== ENCOUNTER 2022-04-25 13:30 | Outpatient (RCR) | payer MEDICARE, SELFPAY | END 2022-06-02 08:23 | disposition home or self-care (01) | LOC: ANHCPREHAB 13:30 | PROVIDERS: PCP Family Medicine Adolescent Medicine; Visit Provider Internal Medicine Pulmonary Disease | DX: J44.9 Chronic obstructive pulmonary disease, unspecified (principal) | CPT/HCPCS: 94625 ==

== ENCOUNTER 2022-05-03 10:46 | Outpatient (CLI) | payer MEDICARE, SELFPAY ==
[2022-05-03 11:40] LABS: Basophils Percent Auto 0.6 % (0.2-1.2); Eosinophils Absolute Auto 0.3 K/mm3 (0-0.3); Eosinophils Percent Auto 5.6 % (0-4.4); Hematocrit 37.1 % (42.0-52.0); Hemoglobin 11.9 g/dL (14.0-18.0); Immature Granulocyte Absolute 0.02 K/mm3 (0.00-0.031); Immature Granulocyte Percent A 0.4 % (0-0.5); Lymphocytes Absolute Auto 0.74 K/mm3 (0.9-3.2); Lymphocytes Percent Auto 14.2 % (18.3-44.2); Mean Corpuscular HGB Conc 32.1 g/dl (32-36); Mean Corpuscular Hemoglobin 29.6 pg (26-34); Mean Corpuscular Volume 92.3 fl (80-100); Mean Platelet Volume 9.6 fl (7.4-10.4); Monocytes Absolute Auto 0.4 K/mm3 (0.1-0.6); Monocytes Percent Auto 7.9 % (2.6-8.5); Neutrophils Absolute Auto 3.7 K/mm3 (1.3-6.7); Neutrophils Percent Auto 71.3 % (45.5-73.1); Platelet Count Result 215 k/mm3 (150-375); Red Blood Count 4.02 M/mm3 (4.6-6.20); Red Cell Distribution Width 12.7 % (11.5-14.5); White Blood Count 5.2 K/mm3 (4.5-10.0)
[2022-05-03 11:51] LABS: Anion Gap 5 mmol/L (8-16); Blood Urea Nitrogen 22 mg/dL (9-20); Calcium 9.7 mg/dL (8.4-10.2); Carbon Dioxide 35 mmol/L (22-30); Chloride 98 mmol/L (98-107); Cholesterol 123 mg/dL (0-200); Estimated Glomerular Filt Rate 48; Glucose 133 mg/dL (65-110); HDL Direct 57 mg/dL; Potassium 4.1 mmol/L (3.4-5.0); Sodium 138 mmol/L (137-145); Triglycerides 88 mg/dL (<150)
[2022-05-03 12:00] LABS: INR 1.3; Prothrombin Time 15.8 Seconds (11.1-14.7)
[2022-05-03 12:02] LABS: LDL Cholesterol Direct 39 mg/dL
== END 2022-05-03 10:47 | disposition home or self-care (01) ==
LOC: ANHLAB 10:49
PROVIDERS: PCP Family Medicine Adolescent Medicine; Visit Provider Internal Medicine Cardiovascular Disease
DX: R07.89 Other chest pain (principal); I25.10 Atherosclerotic heart disease of native coronary artery without angina pectoris; Z86.79 Personal history of other diseases of the circulatory system; J44.9 Chronic obstructive pulmonary disease, unspecified; C34.90 Malignant neoplasm of unspecified part of unspecified bronchus or lung; F17.200 Nicotine dependence, unspecified, uncomplicated; R42 Dizziness and giddiness; I35.0 Nonrheumatic aortic (valve) stenosis; R06.02 Shortness of breath
CPT/HCPCS: 36415; 80048; 80061; 85025; 85610

== ENCOUNTER 2022-05-11 15:16 | Outpatient (CLI) | payer MEDICARE, SELFPAY ==
--- NOTE | ~2022-05-11 | DEXA_ITS ---
Bone Density Report Name: DAVIDE THOMSON Age: 81 Sex: Male Ethnicity: White Date of : 1940 Indication: screening for osteoporosis; height loss; cancer; Referring Provider: ALYSIA ROYAL Study: Bone densitometry was performed. Exam Date: May 11, 2022 Accession number: [id number] Bone Density: Region BMD T-score Z-score Classification AP Spine(L1-L4) 0.857 -2.1 -0.9 Osteopenia Femoral Neck (Left) 0.620 -2.3 -0.6 Osteopenia Total Hip (Left) 0.894 -0.9 0.3 Normal Femoral Neck (Right) 0.613 -2.3 -0.7 Osteopenia Total Hip (Right) 0.820 -1.4 -0.2 Osteopenia Total Hip Mean 0.857 -1.2 0.1 Osteopenia World Health Organization criteria for BMD impression classify patients as: Normal (T-score at or above -1.0), Osteopenia (T-score between -1.0 and -2.5), or Osteoporosis (T-score at or below -2.5). 10-year Fracture Risk: FRAX not reported because: Treated for osteoporosis Clinical Information Provided by Patient: Is being treated for osteoporosis Has used the following medications: Prolia (i.e. denosumab) Has the following medical conditions: Cancer Patient maximum height was 68 Drinks caffeinated beverages Impression: The patient has low bone mass, based on the Left Femoral Neck T-score. Discussion: It is important to ask patients whether they are taking their medications and to encourage continued and appropriate compliance with their osteoporosis therapies to reduce fracture risk. It is also important to review their risk factors and encourage appropriate calcium and vitamin D intakes, exercise, fall prevention and other lifestyle measures. Follow-Up: Consider repeating this study in 2 years to reassess this patient's status, or sooner if there is some new clinical indication. Reported by: CALLI on 05/11/2022 3:42:00 PM. Reviewed, dictated and finalized at location AEvelyne ALVAREZ
== END 2022-05-11 15:17 | disposition home or self-care (01) ==
LOC: ANHIMG 15:17
PROVIDERS: PCP Family Medicine Adolescent Medicine; Visit Provider Internal Medicine Endocrinology, Diabetes & Metabolism
DX: M81.0 Age-related osteoporosis without current pathological fracture (principal); M85.89 Other specified disorders of bone density and structure, multiple sites
CPT/HCPCS: 77080

== ENCOUNTER 2022-08-24 10:30 | Outpatient (CLI) | payer MEDICARE, SELFPAY ==
[2022-08-24 11:36] LABS: Alanine Aminotransferase 19 U/L (6-50); Albumin Level 4.1 g/dL (3.5-5.1); Alkaline Phosphatase 72 U/L (38-126); Anion Gap 5 mmol/L (8-16); Aspartate Amino Transferase 23 U/L (17-59); Bilirubin,Total 0.4 mg/dL (0.2-1.3); Blood Urea Nitrogen 22 mg/dL (9-20); Calcium 9.6 mg/dL (8.4-10.2); Carbon Dioxide 35 mmol/L (22-30); Chloride 98 mmol/L (98-107); Cholesterol 122 mg/dL (0-200); Estimated Glomerular Filt Rate 48; Glucose 112 mg/dL (65-110); HDL Direct 57 mg/dL; Magnesium 2.5 mg/dL (1.6-2.3); Potassium 4.5 mmol/L (3.4-5.0); Sodium 138 mmol/L (137-145); Triglycerides 94 mg/dL (<150)
[2022-08-24 11:48] LABS: LDL Cholesterol Direct 43 mg/dL
[2022-08-24 12:20] LABS: Parathyroid Intact 119.9 pg/mL (7.5-53.5)
[2022-08-24 12:35] LABS: Free T4 Free Thyroxine 1.06 ng/mL (0.78-2.19); Vitamin D 25 Hydroxy 53.1 ng/mL
[2022-08-27 12:47] LABS: Ionized Calcium 5.2 mg/dL (4.7-5.5)
[2022-08-27 16:50] LABS: Albumin 4.1 g/dL (3.8-4.8); Alpha 1 Globulin 0.3 g/dL (0.2-0.3); Alpha 2 Globulin 0.8 g/dL (0.5-0.9); Beta 1 Globulin 0.5 g/dL (0.4-0.6); Gamma Globulin 0.9 g/dL (0.8-1.7); Protein, Total 6.9 g/dL (6.1-8.1)
[2022-08-28 19:50] LABS: Metanephrine, Free <25 pg/mL (<=57); Normetanephrine, Free 167 pg/mL (<=148); Total, Free (MN + NMN) 167 pg/mL (<=205)
[2022-08-29 19:42] LABS: Creatinine, Random Urine 132 mg/dL (20-320); Total Protein/Creatinine Ratio 98 mg/g creat (25-148)
[2022-08-30 04:43] LABS: Prolactin 5.4 ng/mL (***)
[2022-08-30 06:25] LABS: Metanephrine, Total Urine 764 mcg/g cr (149-603); Metanephrine, Urine 74 mcg/g cr (21-153); Normetanephrine, Urine 690 mcg/g cr (108-524)
[2022-09-01 11:26] LABS: PRA 5.67 ng/mL/h (0.25-5.82)
[2022-09-01 19:35] LABS: Parathyroid Hormone Related Pr 17 pg/mL (11-20)
== END 2022-08-24 10:31 | disposition home or self-care (01) ==
PROVIDERS: Nurse Practitioner; PCP Family Medicine Adolescent Medicine; Visit Provider Internal Medicine
DX: E27.8 Other specified disorders of adrenal gland (principal); E78.5 Hyperlipidemia, unspecified; M81.0 Age-related osteoporosis without current pathological fracture; E04.2 Nontoxic multinodular goiter; E21.3 Hyperparathyroidism, unspecified; Z86.018 Personal history of other benign neoplasm; N25.81 Secondary hyperparathyroidism of renal origin; F32.9 Major depressive disorder, single episode, unspecified
CPT/HCPCS: 36415; 80053; 80061; 82088; 82306; 82330; 82570; 83519; 83735; 83835; 83970; 84100; 84146; 84155; 84156; 84165; 84166; 84244; 84439; 84443

== ENCOUNTER 2022-09-07 13:49 | Outpatient (CLI) | payer MEDICARE, SELFPAY ==
--- NOTE | ~2022-09-07 | US_ITS ---
EXAMINATION: US thyroid DATE: 09/07/2022 14:45 INDICATION: Nontoxic multinodular goiter TECHNIQUE: Multiple ultrasound images of the thyroid were obtained. COMPARISON: 02/11/2020 FINDINGS: The right thyroid lobe measures 3.9 x 1.3 x 1.6 cm. The left thyroid lobe measures 3.1 x 1.4 x 1.2 c m. No significant change in a 1.6 cm solid wider than tall very hypoechoic nodule in the right thyroi d lobe with smooth margins, partial rim calcification and without echogenic foci (TI-RADS 5, highly s uspicious , FNA if >=1.0 cm, annual followup is >0.5 cm). This nodule was previously biopsied on with pathology reported as benign follicular nodule . In the superior left thyroid lobe ther e is a 1.0 cm solid very hypoechoic nodule with smooth margins and without echogenic foci (TI-RADS 4, moderately suspicious , FNA if >=1.5 cm, annual followup is >=1 cm). There are couple solid isoechoi c round are wider than tall nodules with smooth margins and without echogenic foci (TI-RADS 3, mildly suspicious , FNA if >=2.5 cm, annual followup is >=1.5 cm) in the mid left thyroid measuring 1.0 cm and 0.5 cm in maximal diameters. IMPRESSION: 1. Multinodular goiter with no interval change in a 1.6 cm TI RADS 5 nodule with interval biopsy demo nstrating benign follicular nodule. No other nodules meeting criteria for biopsy or follow-up. Reviewed, dictated and finalized at location A. IMPRESSION: 1. Multinodular goiter with no interval change in a 1.6 cm TI RADS 5 nodule wit h interval biopsy demonstrating benign follicular nodule. No other nodules me eting criteria for biopsy or follow-up.
== END 2022-09-07 13:50 | disposition home or self-care (01) ==
PROVIDERS: PCP Family Medicine Adolescent Medicine; Visit Provider Internal Medicine
DX: E04.2 Nontoxic multinodular goiter (principal)
CPT/HCPCS: 76536

== ENCOUNTER 2023-01-08 14:44 | Outpatient (CLI) | payer MEDICARE, SELFPAY ==
--- NOTE | ~2023-01-08 | XR_ITS ---
Clinical Indication: Other specified postprocedural state PA and lateral views of the chest: Comparison: 02/25/2017 Findings: There is chronic blunting of the right costophrenic angle region. Left lung remains clear.. Cardiomediastinal silhouette is within normal limits. Stable cardiac loop recorder. Bones and soft tissues are unremarkable. Impression: Chronic blunting of the right costophrenic angle, unchanged. Stable wireless cardiac device. Reviewed, dictated and finalized at location . Impression: Chronic blunting of the right costophrenic angle, unchanged. Stable wireless cardiac device.
== END 2023-01-08 14:45 | disposition home or self-care (01) ==
LOC: ANHIMG 14:49
PROVIDERS: PCP Family Medicine Adolescent Medicine; Visit Provider Internal Medicine Pulmonary Disease
DX: J44.9 Chronic obstructive pulmonary disease, unspecified (principal); Z98.890 Other specified postprocedural states
CPT/HCPCS: 71046

== ENCOUNTER 2023-01-25 13:32 | Outpatient (CLI) | payer MEDICARE, SELFPAY ==
[2023-01-25 15:46] LABS: Basophils Percent Auto 0.6 % (0.2-1.2); Eosinophils Absolute Auto 0.3 K/mm3 (0-0.3); Eosinophils Percent Auto 5.1 % (0-4.4); Hematocrit 37.8 % (42.0-52.0); Hemoglobin 12.2 g/dL (14.0-18.0); Immature Granulocyte Absolute 0.02 K/mm3 (0.00-0.031); Immature Granulocyte Percent A 0.4 % (0-0.5); Lymphocytes Absolute Auto 1.32 K/mm3 (0.9-3.2); Lymphocytes Percent Auto 27.2 % (18.3-44.2); Mean Corpuscular HGB Conc 32.3 g/dl (32-36); Mean Corpuscular Hemoglobin 30.5 pg (26-34); Mean Corpuscular Volume 94.5 fl (80-100); Mean Platelet Volume 9.4 fl (7.4-10.4); Monocytes Absolute Auto 0.5 K/mm3 (0.1-0.6); Monocytes Percent Auto 10.9 % (2.6-8.5); Neutrophils Absolute Auto 2.7 K/mm3 (1.3-6.7); Neutrophils Percent Auto 55.8 % (45.5-73.1); Platelet Count Result 269 k/mm3 (150-375); Red Cell Distribution Width 13.1 % (11.5-14.5); White Blood Count 4.9 K/mm3 (4.5-10.0)
[2023-01-25 16:02] LABS: Alanine Aminotransferase 19 U/L (6-50); Anion Gap 4 mmol/L (8-16); Aspartate Amino Transferase 24 U/L (17-59); Bilirubin,Total 0.3 mg/dL (0.2-1.3); Blood Urea Nitrogen 21 mg/dL (9-20); Calcium 10.1 mg/dL (8.4-10.2); Carbon Dioxide 32 mmol/L (22-30); Chloride 102 mmol/L (98-107); Estimated Glomerular Filt Rate 53; Glucose 91 mg/dL (65-110); Potassium 4.6 mmol/L (3.4-5.0); Sodium 138 mmol/L (137-145)
[2023-01-25 16:03] LABS: Albumin Level 4.1 g/dL (3.5-5.1); Alkaline Phosphatase 58 U/L (38-126); Cholesterol 224 mg/dL (0-200); HDL Direct 59 mg/dL; Triglycerides 187 mg/dL (<150)
[2023-01-25 16:08] LABS: NT Pro B Type Natriuretic Pept 133 pg/mL (19.9-100)
[2023-01-25 16:13] LABS: LDL Cholesterol Direct 109 mg/dL
[2023-01-25 17:02] LABS: Hemoglobin A1C 6.3 % (<5.7)
[2023-01-25 17:05] LABS: Iron 87 ug/dL (49-181)
[2023-01-25 17:18] LABS: Percent Iron Saturation 24 % (20-50)
[2023-01-25 17:26] LABS: Free T4 Free Thyroxine 1.14 ng/mL (0.78-2.19)
--- NOTE | 2023-01-26 11:16 | WPDPFTINT ---
PFT Procedure Performed PFT Procedure Performed Spirometry with Pre/Post Bronchodilator Plethysmography (Lung Vol) Diffusing Cap (DLCO) Flow Vol Loop PFT Interpretation Lung volumes were measured with the body plethysmography method. The elevated FRC and RV are indicative of air trapping. Spirometry showed diminished expiratory flow rates and a diminished FEV1 to FVC ratio of 39% indicative of a obstructive airway disease. Following administration of a bronchodilator there was significant increase in the expiratory flow rates. Lung diffusion capacity is moderately reduced at 56% predicted. The flow volume loop is consistent with obstructive airway disease. Impression: Severe obstructive airway disease with evidence of air trapping and significant response to bronchodilators on this testing. Moderately reduced lung diffusion capacity.
--- NOTE | 2023-01-26 11:19 | WPDSIXMINUTE ---
Six Minute Walk Procedure Procedure Performed Pulmonary Stress Test (6 min walk) Six Minute Walk Six Minute Walk: This 6 minute walk test was carried out with the patient breathing ambient air. The baseline pre-walk oxyhemoglobin saturation was 96%. The patient walked 244 m with no stops during testing. During the walk the oxyhemoglobin saturation remained in the range of 93%-95%. The perceived dyspnea on the Jose Manuel scale was 0 at baseline and increased to 4 at the end of testing. Impression: No evidence of oxyhemoglobin desaturation on this testing.
[2023-01-31 05:50] LABS: Triiodothyronine T3 Free 3.3 pg/mL (2.3-4.2)
== END 2023-01-25 13:33 | disposition home or self-care (01) ==
PROVIDERS: PCP Family Medicine Adolescent Medicine; Visit Provider Internal Medicine Pulmonary Disease
DX: J44.9 Chronic obstructive pulmonary disease, unspecified (principal); I25.10 Atherosclerotic heart disease of native coronary artery without angina pectoris; I35.0 Nonrheumatic aortic (valve) stenosis; R06.02 Shortness of breath; Z86.79 Personal history of other diseases of the circulatory system; C34.90 Malignant neoplasm of unspecified part of unspecified bronchus or lung; F17.200 Nicotine dependence, unspecified, uncomplicated; R42 Dizziness and giddiness
CPT/HCPCS: 36415; 80053; 80061; 82728; 83036; 83540; 83550; 83880; 84439; 84443; 84481; 85025; 94060; 94618; 94726; 94729

== ENCOUNTER 2023-02-16 14:39 | Outpatient (CLI) | payer MEDICARE, SELFPAY ==
--- NOTE | ~2023-02-16 | CT_ITS ---
EXAMINATION: CT abdomen pelvis wo con DATE: 02/16/2023 14:57 INDICATION: Left adrenal mass. TECHNIQUE: Computed tomography (CT) of the abdomen and pelvis was performed without intravenous contr ast. Automated exposure control and iterative reconstruction technique were employed. The dose-length product was 415.55 mGy-cm. COMPARISON: CT abdomen and pelvis 02/27/2017, chest CT 02/22/2022 FINDINGS: The visualized portions of the lung bases demonstrate emphysema. There is mild scarring sirena aterally, worse than left. There is a 10 mm cavitary nodule in left lower lobe. No pleural effusion. The heart size is normal. There are coronary artery calcifications. No pericardial effusion. There is an electronic implant in left anterior chest wall. The liver and spleen are normal. There are gallst ones in the gallbladder, which is normal in size. The pancreas is normal. There is a 1.5 cm mass in l eft adrenal gland. There are changes of right nephrectomy and right adrenalectomy. There are cysts in left kidney measuring up to 1.9 cm. There is calcified atherosclerosis of the aorta and many of the other arteries. 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 There are brachytherapy seed s in the prostate. There is prominent fat in the inguinal canals that may be hernias. There is divert iculosis of the colon without evidence of diverticulitis. The appendix is normal. There are no dilate d loops of bowel. There are no pathologically enlarged lymph nodes. There is no free intraperitoneal fluid. There is severe lumbar spondylosis. IMPRESSION: 1. 10 mm cavitary left lower lobe pulmonary nodule, new from 02/22/22, which is indeterminate for mal ignancy. Noncontrast low-dose chest CT is recommended in 3 months. 2. Emphysema. 3. 1.5 cm mass in left adrenal gland, stable from 02/27/2017, likely an adenoma. 4. 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 Reviewed, dictated and finalized at location E. IMPRESSION: 1. 10 mm cavitary left lower lobe pulmonary nodule, new from 02/22/22, which is indeterminate for malignancy. Noncontrast low-dose chest CT is recommended in 3 months. 2. Emphysema. 3. 1.5 cm mass in left adrenal gland, stable from 02/27/2017, likely an adenoma . 4. 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
== END 2023-02-16 14:40 | disposition home or self-care (01) ==
LOC: ANHIMG 14:41
PROVIDERS: PCP Family Medicine Adolescent Medicine; Visit Provider Internal Medicine
DX: E27.8 Other specified disorders of adrenal gland (principal); Z86.018 Personal history of other benign neoplasm; R91.1 Solitary pulmonary nodule; J43.9 Emphysema, unspecified; I71.9 Aortic aneurysm of unspecified site, without rupture
CPT/HCPCS: 74176

== ENCOUNTER 2023-02-19 09:26 | Outpatient (CLI) | payer MEDICARE, SELFPAY ==
--- NOTE | ~2023-02-19 | NM_ITS ---
EXAMINATION: NM parathyroid imaging w spect DATE: 02/19/2023 13:59 INDICATION: Age-related osteoporosis with current pathologic fracture. TECHNIQUE: 20.5 mCi Tc99m sestamibi was administered intravenously. Anterior images of the neck were obtained immediately and at 2 hours. SPECT images of the neck were obtained. COMPARISON: None. FINDINGS: There is no focus of persistent activity in the area of the thyroid or mediastinum to sugge st parathyroid adenoma. IMPRESSION: 1. No evidence of a parathyroid adenoma. Reviewed, dictated and finalized at location A.
== END 2023-02-19 09:27 | disposition home or self-care (01) ==
LOC: ANHIMG 09:30
PROVIDERS: PCP Family Medicine Adolescent Medicine; Visit Provider Internal Medicine
DX: M81.0 Age-related osteoporosis without current pathological fracture (principal)
CPT/HCPCS: 78071; A9500

== ENCOUNTER 2023-03-21 10:24 | Outpatient (CLI) | payer MEDICARE, SELFPAY ==
[2023-03-21 11:11] LABS: Partial Thromboplastin Time 34.9 SECONDS (22.3-36.8)
== END 2023-03-21 10:25 | disposition home or self-care (01) ==
LOC: ANHSURGERY 10:30
PROVIDERS: PCP Family Medicine Adolescent Medicine; Visit Provider Urology
DX: Z01.812 Encounter for preprocedural laboratory examination (principal); R31.9 Hematuria, unspecified
CPT/HCPCS: 36415; 85730; 87086

== ENCOUNTER → 2023-03-27 01:35 | Day surgery (SDC) | payer MEDICARE, SELFPAY ==
[2023-03-15 14:36] VITALS: BMI 26.8
--- NOTE | 2023-03-15 14:52 | PC.NURSE ---
PRE-OP INSTRUCTIONS, PLEASE READ CAREFULLY Report to the Outpatient Waiting Room, entrance under the green pavilion located off [facility], at time _0900_ on date _03/27/23_. Planned Procedure Time: _1100_. Time changes happen often and if your time is changed the preop area will call you the afternoon before. - You and your visitor will be asked to self-screen and do not enter if you have any COVID symptoms. - A mask is optional within the hospital at this time. Patients may have clear liquids (water, carbonated beverages, clear teas, apple juice) until 3 hours prior to surgery (0800 AM) with a maximum of 20 ounces. - No food from midnight until time of surgery Take the following medications with a SIP of water the morning of surgery: _TRELEGY INHALER, VENLAFAXINE & ALBUTEROL INHALER IF NEEDED_ DO NOT STOP ANY OF YOUR OTHER PRESCRIPTION MEDICATIONS PRIOR TO SURGERY ?EXCEPT THE FOLLOWING Medications to discontinue per DR. TORO - _VITAMINS/SUPPLEMENTS 7 DAYS PRIOR TO SURGERY, Date to take last dose 03/19/23, ELIQUIS 2 DAYS PRIOR TO SURGERY, Date to take last dose 03/24/23_ (PER PT) Please no make-up, nail turkish, hairspray, perfume, deodorant, or body powder the day of surgery. No jewelry (including any body piercings) or valuables the day of surgery, leave them at home. Please take a shower or bath the night before, or the morning of, surgery with an antibacterial soap. Wear comfortable, loose fitting clothing. Children are encouraged to wear pajamas. - Jewelry must be removed prior to entering the operating room. Rings and piercings that are not removed may be cut off. - The hospital will not accept responsibility for valuables. - Please leave all valuables, including medications, at home the day of surgery. If you are going home after surgery, a licensed buggy driver must drive you home. - NO public transportation without another adult if you receive anesthesia. - We recommend that an adult stay with you for 24 hours following discharge. - We also recommend that you do not drive, make important decision, drink alcoholic beverages, or take any drugs that were not prescribed by your health care provider for at least 24 hours after your discharge time. Follow any additional instructions given to you from your surgeon. If you or anyone in your household have experienced Covid symptoms in the past week, please notify your surgeon or the nurse liaison at the phone number below for possible testing. Telephone instructions given to _PATIENT__and asked if any additional questions and then verbalized understanding. Patient advised to call surgeon office or pre surgery nurse liaison [phone] if any additional questions.
[2023-03-27] VITALS (8 sets, daily range): BP systolic 102–153; BP diastolic 56–77; PULSE 82–89; RESP 17–22; TEMP 36.3–37.2; O2SAT 94–100
--- NOTE | 2023-03-27 09:55 | WPDHPUPDATE1 ---
History and Physical Update Update Date/Time: 03/27/23 09:55 History and Physical has been reviewed, including an updated exam of the patient. There are NO changes in the patient's condition. Risks, benefits, and alternatives have been discussed and questions answered. Patient agrees to proceed with procedure. Proceed with transurethral resection of bladder tumor
[2023-03-27] MEDS: LACTATED RINGERS 1,000 ML 30 ML IV CONT (10:15)
--- NOTE | 2023-03-27 10:31 | WPDANESEPPF ---
Anes - Initial Pre Proc Eval Procedure: Operation Date: 03/27/23 11:00 Proposed Procedures p Transurethral Resection of Bladder Tumor - Brent Fuchs MD Date/Time: 03/27/23 10:31 Surgeon: Brent Fuchs MD Pre Op Diagnosis: bladder lesion, gross hematuria Patient Data Age: 82 Gender: M Height: 1.68 m Weight: 74.6 kg Last Vital Signs Temp 37.2 C 03/27/23 09:28 Pulse 89 03/27/23 09:28 Resp 20 03/27/23 09:28 BP 153/76 H 03/27/23 09:28 Pulse Ox 99 03/27/23 09:28 O2 Del Method Room Air 03/27/23 09:28 Allergies Allergy/AdvReac Type Severity Reaction Status Date / Time codeine AdvReac Intermediate Nausea and Verified 03/27/23 09:32 Vomiting Home Medications Medication Instructions Recorded Confirmed Type Adult One Daily Multivitamin 1 tab-cap BYMOUTH DAILY 03/16/19 03/27/23 History venlafaxine 150 mg 150 mg PO DAILY 03/16/19 03/27/23 History capsule,extended release 24 hr fluticasone fur. 100 mcg-umeclid 1 inhalation inhalation DAILY 09/22/19 03/27/23 History 62.5 mcg-vilant 25 mcg inhalat.powder (Trelegy Ellipta) rosuvastatin 10 mg tablet 10 mg PO DAILY #90 tabs 06/20/22 03/27/23 Rx spironolactone 25 mg tablet 25 mg PO DAILY #90 tabs 10/10/22 03/27/23 Rx tamsulosin 0.4 mg capsule 0.4 mg PO DAILY #90 caps 11/17/22 03/27/23 Rx furosemide 20 mg tablet 20 mg PO DAILY #90 tabs 12/26/22 03/27/23 Rx denosumab 60 mg/mL subcutaneous 60 mg subcut [id number] 01/02/23 03/27/23 History syringe (Prolia) valsartan 40 mg tablet 40 mg PO DAILY 01/02/23 03/27/23 History albuterol sulfate 90 mcg/actuation 2 puff inhalation Q4-6H PRN 03/15/23 03/27/23 History aerosol inhaler (ProAir HFA) Wheezing cholecalciferol (vitamin D3) 25 25 mcg PO DAILY 03/15/23 03/27/23 History mcg (1,000 unit) tablet apixaban 5 mg tablet (Eliquis) 5 mg PO BID #180 tabs 03/26/23 03/27/23 Rx Laboratory Tests 03/27/23 09:56 APTT Pending Patient hx anesthesia problems: none Family hx anesthesia problems: none Results Review: All pre-operative results and documents have been reviewed as part of the pre-operative evaluation. [facility] Past Medical History Medical History AAA (abdominal aortic aneurysm) without rupture Aortic valve stenosis Arthritis Benign prostatic hyperplasia Cancer Cataract Chronic obstructive lung disease COPD (chronic obstructive pulmonary disease) COVID-19 Depression Depression Gastroesophageal reflux disease H/O: HTN (hypertension) Hearing loss Hypertension Lung cancer Malignant tumor of prostate (2017) Radiation treatment Normal colonoscopy Small cell lung cancer Stage 3 chronic kidney disease Tobacco dependence syndrome Surgical History Surgical History H/O wrist surgery in the s, fusion of left wrist History of knee replacement (2009) Right TKA History of lung surgery (2013) Right upper lobectomy, small cell ca History of right nephrectomy (2004) Family History Family History Sibling Family history of malignant neoplasm of bone Family history of malignant neoplasm of breast in first degree relative Mother Family history of congestive heart failure Other Acute anxiety CHF (congestive heart failure), NYHA class I Cancer Cataract Depression Diabetes mellitus Heart disease Psychiatric complaint Social History Social History Smoking packs per day: 1.5 Smoking cigarettes per day: 30.0 Years smoked: 50 Smoking pack-years: 75.00 Smoking status: Former smoker Tobacco type: cigarettes Second hand tobacco smoke exposure: No Smoking end date: 06/12/13 Alcohol intake: never Substance use: never Substance use type: does not use Lack of Transportation: No Lack of Food: Never True
[2023-03-27 10:34] LABS: Partial Thromboplastin Time 29.7 SECONDS (22.3-36.8)
[2023-03-27] MEDS: ceFAZolin 2 GM/D5W 50 ML 2 GM/50 ML BAG IVPB (10:58)
[2023-03-27] MEDS: LIDOCAINE HCL 2% GEL UROJET 10 ML PKG MUCOUS MEM (11:19)
--- NOTE | 2023-03-27 11:21 | W.PM.PROC2 ---
Procedure Note - Detailed Date of Procedure 03/27/23 Pre-op Diagnosis bladder lesion, gross hematuria Post-op Diagnosis Same Procedure Performed Urethral dilation, transurethral resection of small bladder tumor left lateral wall Surgeon Brent Fuchs MD Anesthesia General Description of Procedure Patient is taken the operative suite correctly identified. Once anesthesia was obtained he was placed in dorsal lithotomy position prepped draped usual sterile fashion. His fossa navicularis meatus were tight. I dilated up to 26 Lithuanian using male sounds. Twenty-four Lithuanian resectoscope sheath inserted into the bladder. The bladder was inspected in its entirety. He has a tumor on the left lateral wall measuring approximately 1 cm. This was resected. The tissue was somewhat friable. Hemostasis was achieved using electrocautery. No other visible lesions noted. Bladder was drained. 2% viscous lidocaine was inserted into the urethra patient is taken recovery stable condition. He is to call for path results in 1 week. This completes dictation. Please send a copy of op note to my office. Estimated Blood Loss 0 Drains No Packing No Pathology Yes Complications No immediate complications Condition Stable Disposition PACU
[2023-03-27] MEDS: traMADol HCL (*CRX) 50 MG TABLET PO (12:53)
== END | disposition home or self-care (01) ==
PROVIDERS: PCP Family Medicine Adolescent Medicine; Visit Provider Urology
PROC: 0TBB8ZZ Excision of Bladder, Via Natural or Artificial Opening Endoscopic (ICD-10-PCS; CPT 52234; principal; 2023-03-27 11:00)
DX: C67.2 Malignant neoplasm of lateral wall of bladder (principal); J44.9 Chronic obstructive pulmonary disease, unspecified; F32.A Depression, unspecified; I12.9 Hypertensive chronic kidney disease with stage 1 through stage 4 chronic kidney disease, or unspecified chronic kidney disease; N18.30 Chronic kidney disease, stage 3 unspecified; K21.9 Gastro-esophageal reflux disease without esophagitis; Z79.51 Long term (current) use of inhaled steroids; Z79.01 Long term (current) use of anticoagulants; Z90.2 Acquired absence of lung [part of]; Z90.5 Acquired absence of kidney; Z96.651 Presence of right artificial knee joint; Z87.891 Personal history of nicotine dependence; Z86.79 Personal history of other diseases of the circulatory system; Z87.438 Personal history of other diseases of male genital organs; Z85.118 Personal history of other malignant neoplasm of bronchus and lung; Z85.46 Personal history of malignant neoplasm of prostate; Z80.3 Family history of malignant neoplasm of breast; Z80.8 Family history of malignant neoplasm of other organs or systems; Z82.49 Family history of ischemic heart disease and other diseases of the circulatory system
CPT/HCPCS: 52234; 36415; 85730; 87086; 88305; A9270; J0690; J1100; J2405; J2704; J7120

== ENCOUNTER 2023-06-14 13:32 | Outpatient (CLI) | payer MEDICARE, SELFPAY ==
--- NOTE | ~2023-06-14 | CT_ITS ---
EXAMINATION: CT diagnostic chest wo con DATE: 06/14/2023 13:57 INDICATION: Solitary pulmonary nodule TECHNIQUE: Computed tomography (CT) of the chest was performed without intravenous contrast. Automate d exposure control and iterative reconstruction technique were employed. Exam dose: 99.28 mGy-cm tot al exam DLP. COMPARISON: 12/31/2022 2 view chest 02/22/2022 CT chest FINDINGS: Status post right upper lobectomy. Emphysematous changes of the lungs. Prominent left apical scarring. Prominent emphysematous changes of the lungs. No pulmonary infiltrate or consolidation or suspicious pulmonary mass lesion is noted. Heart size is normal. Calcifications of the aortic valve. Thoracic and great vessel and coronary cortney ry calcifications. No thoracic aortic aneurysm is evident. No pericardial or pleural effusion. No hilar or mediastinal mass lesion or lymphadenopathy. Minimal pleural calcification along the lateral left lower chest wall. Implanted electronic device in the left anterior subcutaneous chest tissues. Status post right adrenalectomy and nephrectomy. Suggestion of possible cholelithiasis. Duodenal diverticulum Diverticulosis of the colon. No suspicious osteolytic or osteoblastic lesions. IMPRESSION: Prominent emphysematous changes Status post right upper lobectomy Cannot exclude cholelithiasis Reviewed, dictated and finalized at Location A. Reviewed, dictated and finalized at location L. ICAL CASE MANAGER
== END 2023-06-14 13:33 | disposition home or self-care (01) ==
PROVIDERS: PCP Family Medicine Adolescent Medicine; Visit Provider Internal Medicine Pulmonary Disease
DX: R91.1 Solitary pulmonary nodule (principal)
CPT/HCPCS: 71250

== ENCOUNTER 2023-08-27 14:09 | Outpatient (CLI) | payer MEDICARE, SELFPAY ==
--- NOTE | ~2023-08-27 | US_ITS ---
EXAMINATION: US thyroid DATE: 08/27/2023 14:36 INDICATION: Multinodular goiter. TECHNIQUE: Multiple ultrasound images of the thyroid were obtained. COMPARISON: Ultrasound 03/05/2020 FINDINGS: The right thyroid lobe measures 3.5 x 2.0 x 1.1 cm. The left thyroid lobe measures 4.0 x 2.3 x 1.4 c m. In the right thyroid lobe, there is a 1.4 cm solid, very hypoechoic, taller than wide nodule with smooth margin with peripheral calcifications (TI-RADS TR5), stable from 03/05/2020 when biopsy was b enign. In the left thyroid lobe, there is a 7 mm solid, hypoechoic, wider than tall nodule with storm h margin without echogenic foci (TR4). In the left thyroid lobe, there is a 7 mm solid, hyperechoic, taller than wide nodule with ill-defined margin without echogenic foci (TR4). IMPRESSION: 1. Multinodular goiter, likely not clinically significant. No follow-up is needed. Reviewed, dictated and finalized at location E. IMPRESSION: 1. Multinodular goiter, likely not clinically significant. No follow-up is need ed.
== END 2023-08-27 14:10 ==
LOC: MICIMG 14:10
PROVIDERS: PCP Internal Medicine; Visit Provider Internal Medicine
DX: E04.2 Nontoxic multinodular goiter (principal)
CPT/HCPCS: 76536

== ENCOUNTER 2023-12-25 08:03 | Outpatient (CLI) | payer MEDICARE, SELFPAY ==
[2023-12-25 08:57] LABS: Alanine Aminotransferase 17 U/L (6-50); Alkaline Phosphatase 58 U/L (38-126); Anion Gap 7 mmol/L (4-12); Aspartate Amino Transferase 27 U/L (17-59); Bilirubin,Total 0.4 mg/dL (0.2-1.3); Blood Urea Nitrogen 21 mg/dL (9-20); Calcium 9.5 mg/dL (8.4-10.2); Carbon Dioxide 31 mmol/L (22-30); Chloride 99 mmol/L (98-107); Estimated Glomerular Filt Rate 52; Glucose 188 mg/dL (65-110); Potassium 4.1 mmol/L (3.4-5.0); Sodium 137 mmol/L (137-145)
[2023-12-25 09:12] LABS: Parathyroid Intact 171.5 pg/mL (7.5-53.5)
[2023-12-25 09:55] LABS: Free T4 Free Thyroxine 0.99 ng/mL (0.78-2.19); Vitamin D 25 Hydroxy 36.4 ng/mL
[2023-12-25 10:04] LABS: Hemoglobin A1C 6.7 % (<5.7)
[2023-12-25 10:09] LABS: Cortisol Baseline 1.23 ug/dL; Thyroid Stimulating Hormone 0.888 uIU/mL (0.465-4.680)
[2023-12-29 17:33] LABS: Metanephrine, Free <25 pg/mL (<=57); Normetanephrine, Free 162 pg/mL (<=148); Total, Free (MN + NMN) 162 pg/mL (<=205)
[2024-01-01 21:38] LABS: Calcitonin <2 pg/mL (< OR = 10)
== END 2023-12-25 08:04 | disposition home or self-care (01) ==
LOC: ANHLAB 08:09
PROVIDERS: PCP Family Medicine Adolescent Medicine; Visit Provider Internal Medicine
DX: E27.8 Other specified disorders of adrenal gland (principal); E04.2 Nontoxic multinodular goiter; M81.0 Age-related osteoporosis without current pathological fracture; I12.9 Hypertensive chronic kidney disease with stage 1 through stage 4 chronic kidney disease, or unspecified chronic kidney disease; N18.9 Chronic kidney disease, unspecified; R73.01 Impaired fasting glucose; F32.9 Major depressive disorder, single episode, unspecified
CPT/HCPCS: 36415; 80053; 82306; 82308; 82533; 83036; 83835; 83970; 84439; 84443

== ENCOUNTER 2023-12-27 14:20 | Outpatient (CLI) | payer MEDICARE, SELFPAY | END 2023-12-27 14:21 | disposition home or self-care (01) | LOC: ANHLAB 14:24 | PROVIDERS: PCP Family Medicine Adolescent Medicine; Visit Provider Internal Medicine | DX: E27.8 Other specified disorders of adrenal gland (principal) | CPT/HCPCS: 82530 ==

== ENCOUNTER 2024-06-12 13:52 | Outpatient (CLI) | payer MEDICARE, SELFPAY ==
--- OUTSIDE RECORDS SUMMARY | 2024-06-12 14:35 | XMS_ITS | Encounter Summary ---
Author Organization [facility] Address [address] [place] [address] Care Team Providers Care Development Consultant Name Role Phone Endy Garcia MD Primary Care Provider [phone] Angelo Galvan DO Primary Care Provider [phone] Endy Garcia MD Primary Care Provider [phone] Encounter Details Date Type Department Care Team (Late st Contact Info) Description 10/31/2018 Lab Requisition [facility] [address] [place] [id number] Raymond Aguero MD [address] [place] [address] Social History Tobacco Use Types Packs/Day Years Used Date Smoking Tobacco: Never Assessed Sex and Gender Information Value Date Recorded Sex Assigned at Not on file Gender Identity Not on file Sexual Orientation Not on file documented as of this encounter Plan of Treatment Not on file documented as of this encounter Procedures Procedure Name Priority Date/Time Associated Diagnosis Comments DERMATOPATHOLOGY Routine 10/30/2018 12:0 0 AM CDT documented in this encounter Results * DERMATOPATHOLOGY (10/30/2018 12:00 AM CDT) Case Report Dermatopathology Report ? Case: [id number] ? Authorizing Provider: ??Raymond Aguero MD ?Collected: ? 10/30/2018 12:00 AM ? Pathologist: ? Davy Ramirez MD ? Received: ?10/31/2018 01:21 PM ? Specimen: ?Skin, left lat superior hip ? 9 2:26 PM CDT DERMATOPATHOLOGY LABORATORY Final Diagnosis Specimen A. SKIN, left lat superior hip: EPIDERMOID CYST WITH EVIDENCE OF RUPTURE (L72.0) 9 2:26 PM CDT DERMATOPATHOLOGY LABORATORY Clinical History R/O inflammed & ruptured EIC. 9 2:26 PM CDT DERMATOPATHOLOGY LABORATORY Gross Description Specimen A: Received is one formalin filled container labeled with the patient's name and designated left lat superior hip.The specimen consists of an ellipse measuring [id number] and is oriented with the notch at the 12 o'clock position labeled on the requisition as notch sup pole. The 12 to 6 o'clock margin is inked green. The 6 o'clock to 12 o'clock margin is inked black. The 12 o'clock tip is submitted in cassette 1. The 6 o'clock tip is submitted in cassette 2. The remainder of the ellipse is serially sectioned and submitted in cassettes 3-4. Jar 0. 9 2:26 PM CDT DERMATOPATHOLOGY LABORATORY Microscopic Description Specimen A. SKIN, left lat superior hip: Within the dermis, there is a space lined by epithelium that resembles normal epidermis and the infundibular portion of the hair follicle. Surrounding this is an infiltrate with neutrophils, histiocytes, and multinucleated giant cells. 9 2:26 PM CDT DERMATOPATHOLOGY LABORATORY Disclaimer An external and internal positive and negative controls are appropriate for the histochemical, immunohistochemical and immunofluorescence stain(s) in this case (if any), except where stated explicitly. The performance characteristics of the stain(s) cited in this report were developed and its performance characteristic determined by the Dermatopathology Laboratory at [facility], directed by Dr. Gris Ramirez. These tests need not be, and therefore are not, approved by the [place] Food and Drug Administration. The tests are used for clinical purposes. Billing Codes Specimen Charges Stain Charges 05454 1 9 2:26 PM CDT DERMATOPATHOLOGY LABORATORY Embedded Images 9 2:26 PM CDT DERMATOPATHOLOGY LABORATORY Pathology/Cytolog y TISSUE SPECIMEN FROM SKIN / Unknown 10/30/2018 10/31/2018 1:21 PM CDT Raymond Aguero MD LAB - PATHOLOGY/CYTO LOGY ORDERABLES DERMATOPATHOLOGY LABORATORY [facility] - Department of Dermatology [address] [place] [address], 5th Floor Lab [address] [phone] documented in this encounter Visit Diagnoses Not on filedocumented in this encounter Care Teams Development Consultant Relationship Specialty Start Date End Date Endy Garcia MD [address] [facility] [address] [place] [address] PCP - General 10/31/18 01/24/20 Angelo Galvan DO [address] [place] [address] PCP - General Internal Medicine 01/25/20 03/21/20 Endy Garcia MD [address] [place] [address] PCP - General 03/22/20 documented as of this encounter
--- OUTSIDE RECORDS SUMMARY | 2024-06-12 14:35 | XMS_ITS | Encounter Summary ---
Author Organization [facility] Address [address] [place] [address] Care Team Providers Care Senior Bi Architect Name Role Phone Endy Garcia MD Primary Care Provider [phone] Angelo Galvan DO Primary Care Provider [phone] Endy Garcia MD Primary Care Provider [phone] Encounter Details Date Type Department Care Team (Late st Contact Info) Description 11/28/2018 Lab Requisition [facility] [address] [place] [phone] Raymond Aguero MD [address] [place] [address] Social History Tobacco Use Types [...] Priority Date/Time Associated Diagnosis Comments DERMATOPATHOLOGY Routine 11/27/2018 12:0 0 AM CDT documented in this encounter Results * DERMATOPATHOLOGY (11/27/2018 12:00 AM CDT) Case Report Dermatopathology Report ? Case: [id number] ? Authorizing Provider: ??Raymond Aguero MD ?Collected: ? 11/27/2018 12:00 AM ? Pathologist: ? Davy Ramirez MD ? Received: ?11/28/2018 11:37 AM ? Specimen: ?Skin, left superior forehead left of midline ? 3:44 PM T DERMATOPATHOLOGY LABORATORY Final Diagnosis Specimen A. SKIN, left superior forehead left of midline: EPIDERMOID CYST (L72.0) 3:44 PM T DERMATOPATHOLOGY LABORATORY Clinical History R/O EIC. 3:44 PM T DERMATOPATHOLOGY LABORATORY Gross Description Specimen A: Received is one formalin filled container labeled with the patient's name and designated left superior forehead left of midline. The specimen consists of a [id number] excision, bisected. Jar 0. 3:44 PM T DERMATOPATHOLOGY LABORATORY Microscopic Description Specimen A. SKIN, left superior forehead left of midline: Within the dermis, there is a space lined by epithelium that resembles normal epidermis and the infundibular portion of the hair follicle. 3:44 PM T DERMATOPATHOLOGY LABORATORY Disclaimer An external and internal positive and negative controls are appropriate for the histochemical, immunohistochemical and immunofluorescence stain(s) in this case (if any), except where stated explicitly. The performance characteristics of the stain(s) cited in this report were developed and its performance characteristic determined by the Dermatopathology Laboratory at [facility], directed by Dr. Gris Ramirez. These tests need not be, and therefore are not, approved by the [place] Food and Drug Administration. The tests are used for clinical purposes. Billing Codes Specimen Charges Stain Charges 12305 1 9 3:44 PM CDT DERMATOPATHOLOGY LABORATORY Embedded Images 9 3:44 PM CDT DERMATOPATHOLOGY LABORATORY Pathology/Cytolog y TISSUE SPECIMEN FROM SKIN / Unknown 11/27/2018 11/28/2018 11:37 AM CDT Raymond Aguero MD LAB - PATHOLOGY/CYTO LOGY ORDERABLES DERMATOPATHOLOGY LABORATORY [facility] - Department of Dermatology [address] [place] [address], 5th Floor Lab [address] [phone] documented in this encounter Visit Diagnoses Not on filedocumented in this encounter Care Teams Senior Bi Architect Relationship Specialty Start Date End Date Endy Garcia MD [address] [place] [address] PCP - General 10/31/18 01/24/20 Angelo Galvan DO [address] [place] [address] PCP - General Internal Medicine 01/25/20 03/21/20 Endy Garcia MD [address] [place] [address] PCP - General 03/22/20 documented as of this encounter
--- OUTSIDE RECORDS SUMMARY | 2024-06-12 14:35 | XMS_ITS ---
Author Organization [facility] [address] Address [address] [place] [address] Care Team Providers Care Title Assistant Name Role Phone Arnold Fernández MD Primary Care Prov ider Active Problems Problem Noted Date Diagnosed Date Stage 3a chronic kidney disease 02/10/2024 History of total knee arthroplasty 02/10/2024 Effusion of right knee 02/10/2024 CUEVAS (dyspnea on exertion) 02/05/2018 Aortic valve stenosis 02/05/2018 Overview (02/05/2018): Added automatically from request for surgery [id number] Hemorrhoids 09/11/2017 Prostate cancer 09/11/2017 Double vision 06/06/2017 Blurry vision 06/06/2017 Chronic anticoagulation 06/06/2017 Nonrheumatic aortic valve stenosis 06/06/2017 Abdominal aortic aneurysm (AAA) without rupture 06/06/2017 Assessment & Plan (05/02/2023 10:22 AM PERFORMING ARTIST): 3.1 cm infrarenal abdominal aortic aneurysms, discussed finding with the patient with the recommendation for intervention at 5.5 cm or with rapid growth. Recommend risk factor modification with ASA, statin therapy in good blood pressure control. Discussed the importance of ongoing surveillance with repeat aortoiliac duplex in 1 year. Dizziness 06/06/2017 Hyperlipidemia LDL goal <70 06/06/2017 Assessment & Plan (05/02/2023 10:22 AM PERFORMING ARTIST): Stable continue Crestor 10 mg. 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 Cephalalgia 05/30/2013 Small cell carcinoma of lung 05/29/2013 Chronic obstructive pulmonary disease Current Oncology Plans No current plan information found. Past Plans No past plan information found. Radiation Treatments * No radiation treatments are documented for this patient in [facility]. Treatments may have been administered in another system. Lifetime Dose Tracking * Chemical Lifetime Dose Automatic Entry Manual Entr y Air kerma at the reference point (Ka,r) 312 mGy 0 mGy 312 mGy
--- OUTSIDE RECORDS SUMMARY | 2024-06-12 14:35 | XMS_ITS | Encounter Summary ---
Author Organization [facility] Address [address] [place] [address] Care Team Providers Care Controls Technician Name Role Phone Endy Garcia MD Primary Care Provider [phone] Endy Garcia MD Primary Care Provider [phone] Angelo Galvan DO Primary Care Provider [phone] Arnold Fernández MD Primary Care Prov ider Encounter Details Date Type Department Care Team (Late st Contact Info) Description 05/23/2016 Orders Only [facility] ProviderZahraa MD [address] [place] [address] Social History Tobacco Use Types Packs/Day Years Used Date Smoking Tobacco: Former Cigarettes Q uit: 05/14/2012 Alcohol Use Standard Drinks/Week Comments No 0 (1 standard drink = 0.6 oz pur e alcohol) Sex and Gender Information Value Date Recorded Sex Assigned at Not on file Legal Sex Male 11:58 PM ACCOUNT SERVICES COORDINATOR Gender Identity Not on file Sexual Orientation Not on file documented as of this encounter Plan of Treatment Not on file documented as of this encounter Procedures Procedure Name Priority Date/Time Associated Diagnosis Comments CARDIOLOGY REPORT 05/23/2016 documented in this encounter Results * CARDIOLOGY REPORT (05/23/2016) Anatomical Region Laterality Modality Other Narrative 05/23/2016 Ordered by an unspecified provider. us Historical Provider [facility] ROSEANNA STEVENS Final Result documented in this encounter Visit Diagnoses Not on filedocumented in this encounter Additional Health Concerns Infection Onset Date Last Indicated Resolved Time MRSA Comment:Priyanka 06/17/09; #2 neg priyanka 05/23/16 03/08/2010 03/08/2010 02/08/2018 10:42 AM CDT COVID: Suspected 10/09/2021 10/09/2021 10/09/2021 3:18 PM CDT documented as of this encounter Care Teams Controls Technician Relationship Specialty Start Date End Date Endy Garcia MD PCP - General 08/11/16 08/30/17 Endy Garcia MD PCP - General 06/11/13 08/10/16 Angelo Galvan DO PCP - General Internal Medicine 08/31/17 02/09/24 Arnold Fernández MD [address] [place] [address] PCP - General Family Medicine 02/10/24 documented as of this encounter
--- OUTSIDE RECORDS SUMMARY | 2024-06-12 14:35 | XMS_ITS | CONTINUITY OF CARE DOCUMENT ---
Author Name indigo sood Address Unknown Organization [facility] Address [address] [place] [address] Phone [phone] Care Team Providers Care Electronic Parts Designer Name Role Phone Hari TORRES, Morro Unavailable EVAN GARCIA MD Unavailable [phone] EVAN GARCIA MD Unavailable [phone] PROBLEMS Condition Status Date Provider Notes SVT, paroxysmal active Wili Ahmedzai COPD active Wili Ahmedzai Dizziness active Wili Vázquezzai Bladder cancer s/p resection of mass active Wili Ahmarshazai Near syncope active Wili Ahmedzai Weakness active Wili Ortegai Cardiology examination active Wili Zaragoza Chest discomfort completed - Morro Noriega MD CAD--mild CAD, cath 03/2023--stress PET fixed defects, 04/2024 active Wili Zaragoza Hx of TIA active Morro Noriega MD Hx of lung cancer 2014, uppe r R lobectomy active Wili Zaragoza Atrial fibrillation, persistent completed - Morro Noriega MD Tobacco abuse--quit active Morro Noriega MD AAA completed - Morro Noriega MD Aortic stenosis--mild ech o 02/2024 active Wili Zaragoza Shortness of breath--nl stre ss nuc 03/2022 active Wili Zaragoza ENCOUNTERS Date Type Provider Location Encounter Diag nosis - In-person encounter Office Visit Morro Noriega MD [facility] CAD--mild CAD, cath 03/2023--stress PET fixed defects, ladder cancer s/p resection of mass - In-person encounter Office Visit Morro Noriega MD [facility] Aortic stenosis--mild echo 02/2024Hx of lung cancer 2013, upper R lobectomyCAD--mild CAD, cath 03/2023--stress PET fixed defects, ardiology examinationWeaknessNear syncope - In-person encounter Office Visit Morro Noriega MD [facility] Aortic stenosis--mild echo 02/2024 - In-person encounter Office Visit Morro Noriega MD [facility] Chest discomfort - In-person encounter Office Visit Morro Noriega MD [facility] Aortic stenosis--mild echo AD--mild CAD, cath 03/2023--stress PET fixed defects, 04/2024 - In-person encounter Office Visit Morro Noriega MD [facility] Shortness of breath--nl stress nuc 03/2022 - In-person encounter Office Visit Morro Noriega MD [facility] Aortic stenosis--mild echo AATobacco abuse--quitAtrial fibrillation, persistentHx of lung cancer 2013, upper R lobectomyHx of TIACAD--mild CAD, cath 03/2023--stress PET fixed defects, 04/2024 VITAL SIGNS Date Observation Value Provider Body Mass Index (Ratio) 25.01 kg/m2 Ramiro Noriega MD oxygen saturation, oximetry 98 % [facility] 87 /min Renée Alvarez lder blood pressure, diastolic 68 mm[Hg] Ke jasper Antonioelder blood pressure, systolic 132 mm[Hg] Edwin Falloner weight E&M 155 [lb_av] Renée Alvarez lder height E&M 66 [in_i] Renée Alvarez er Body Mass Index (Ratio) 26.27 kg/m2 Ramiro Noriega MD blood pressure, diastolic 75 mm[Hg] Ezequiel claire Romero blood pressure, systolic 140 mm[Hg] Marybeth ramires Romero blood pressure, cuff size regular [facility] Romero oxygen saturation, oximetry 98 % [facility] Romero pulse rate 88 /min [facility] Romero weight E&M 162.8 [lb_av] [facility] height E&M 66 [in_i] [facility] Romero Body Mass Index (Ratio) 26.47 kg/m2 Ramiro Noriega MD blood pressure, cuff size regular Sathish et blood pressure, diastolic 71 mm[Hg] Sathish rret blood pressure, systolic 141 mm[Hg] Jar ret pulse rate 79 /min Nick er y oxygen saturation, oximetry 95 % Nick respiratory rate E&M 12 /min Nick weight E&M 164 [lb_av] Nick erda y height E&M 66 [in_i] Nick Easterda y Body Mass Index (Ratio) 26.47 kg/m2 Ramiro Noriega MD pulse rate 91 /min Nick blood pressure, cuff size regular Ja jose blood pressure, diastolic 72 mm[Hg] Ja lindaet blood pressure, systolic 119 mm[Hg] Lorna rios respiratory rate E&M 12 /min Nick oxygen saturation, oximetry 96 % Nick weight E&M 164 [lb_av] Nick height E&M 66 [in_i] Nick y Body Mass Index (Ratio) 27.60 kg/m2 Ramiro Noriega MD oxygen saturation, oximetry 94 % Kenyetta Mckinney respiratory rate E&M 25 /min Kenyetta ann pulse rate 90 /min Kenyetta Mckinney weight E&M 171 [lb_av] Kenyetta Mckinney height E&M 66 [in_i] Kenyetta Mckinney Body Mass Index (Ratio) 27.44 kg/m2 Ramiro Noriega MD blood pressure, cuff size regular Ri mendez Chatterjee blood pressure, diastolic 63 mm[Hg] Ri mendez Chatterjee blood pressure, systolic 109 mm[Hg] Daniel sami Chatterjee oxygen saturation, oximetry 94 % Janice Chatterjee respiratory rate E&M 16 /min Alisha Chatterjee pulse rate 111 /min Janice Lorenzo son weight E&M 170 [lb_av] Janice Lorenzo son height E&M 66 [in_i] Janice Lorenzo son Body Mass Index (Ratio) 27.37 kg/m2 Ramiro Noriega MD height E&M 66 [in_i] Maria C Fulton blood pressure, diastolic 72 mm[Hg] St wicho Fulton blood pressure, systolic 121 mm[Hg] Zen Fulton oxygen saturation, oximetry 95 % Maria C Fulton respiratory rate E&M 16 /min Maria C hassan pulse rate 90 /min Maria C Fulton weight E&M 169.6 [lb_av] Maria C Fulton ALLERGIES Allergy Name Onset Date Reaction Criticality Status CODEINE High Criticality active RESULTS Date Observation Value Provider Reference Range Interpretation Location prothrombin time (patient) 11.4 s [facility] 9.0-11.5 Normal international normalized ratio (INR) 1.1 [facility] Normal basophils as percent of blood leukocytes 0.5 % [facility] Normal eosinophils as percent of blood leukocytes 5.2 % [facility] Normal monocyte count, blood 17.9 % [facility] Normal lymphocyte count, blood 15.1 % [facility] Normal 5 neutrophils as percent of blood leukocytes 61.3 % [facility] Normal basophils, absolute, manual 20 cells/mcL [facility] 0-200 Normal 5 eosinophils, absolute, manual 208 cells/mcL [facility] 15-500 Normal monocytes, absolute, manual 716 cells/mcL [facility] 200-950 Normal lymphocytes, absolute 604 CELLS/UL [facility] 850-3900 Low Absolute Neutrophil count 2452 cells/mcL [facility] 0664-1337 Normal mean platelet volume 10.2 fL [facility] 7.5-12.5 Normal platelet count 186 THOUSAND/U L [facility] 140-400 Normal red blood cell distribution width 12.0 % [facility] 11.0-15.0 Normal mean corpuscular hemoglobin concentration, RBC 33.7 G/DL [facility] 32.0-36.0 Normal mean corpuscular hemoglobin, RBC 31.1 pg [facility] 27.0-33.0 Normal mean corpuscular volume, RBC 92.3 fL [facility] 80.0-100.0 Normal hematocrit, blood 37.4 % [facility] 38.5-50.0 Low hemoglobin electrophoresis, blood 12.6 [facility] 13.2-17.1 Low erythrocyte (RBC) count 4.05 MILLION/UL [facility] 4.20-5.80 Low leukocyte (white blood cells) count, blood 4.0 THOUSAND/U L [facility] 3.8-10.8 Normal calcium, serum 9.7 mg/dL [facility] 8.6-10.3 Normal 5 carbon dioxide, venous blood 33 mmol/L [facility] 20-32 High chloride, serum 95 mmol/L [facility] 98-110 Low potassium, serum 4.9 mmol/L [facility] 3.5-5.3 Normal sodium, serum 136 mmol/L [facility] 135-146 Normal urea nitrogen/creatinin e ratio, serum 19 (calc) [facility] 6-22 Normal creatinine, serum 1.56 mg/dL [facility] 0.70-1.22 High urea nitrogen, blood 29 mg/dL [facility] 7-25 High blood glucose, random 104 mg/dL [facility] 65-99 High cholesterol, non-HDL, total 76 MG/DL (CALC) [facility] <130 Normal cholesterol/HDL ratio, serum, percent 2.6 (calc) [facility] <5.0 Normal LDL cholesterol, serum 56 MG/DL (CALC) [facility] Normal triglyceride, serum, fasting 113 mg/dL [facility] <150 Normal HDL cholesterol, serum 49 mg/dL [facility] > OR = 40 Normal 2023/10/2 5 cholesterol, serum 125 mg/dL [facility] <200 Normal HISTORY OF MEDICATION USE Medication Status Instructions Dates Provider Indications Com ments valsartan 40 mg tablet active Take 1 tablet by mouth once daily 3 Hope Benedr diltiazem HCl (Cardizem CD) 120 mg capsule,extended release 24hr active TAKE 1 TABLET BY MOUTH EVERY DAY 6 Wili Martinezruy rosuvastatin 10 mg tablet completed 0 Wili Zaragoza valsartan 40 mg tablet completed Take 1 tablet by mouth once daily 1 - 6 Wili Martinezruy valsartan 40 mg tablet completed TAKE 1 TABLET BY MOUTH EVERY DAY - 1 Micheilne Tabares 100-62.5-25 mcg blister with device active Wili Zaragoza rosuvastatin 10 mg tablet completed - 0 Wili Zaragoza Eliquis 5 mg tablet active Wili Zaragoza furosemide 20 mg tablet completed as needed - 6 Wili Zaragoza tamsulosin 0.4 mg capsule active Wili Zaragoza carvedilol 3.125 mg tablet completed - 1 Wili Zaragoza spironolactone 25 mg tablet completed - 0 Wili Zaragoaz amlodipine 5 mg tablet completed - 1 Wili Zaragoza venlafaxine 150 mg capsule,extended release 24hr active Wili Zaragoza SOCIAL HISTORY Date Observation Value Provider smoking status Former smoker Wili Ortega i smoking status Former smoker Wili Ortega i smoking/tobacco cess ation, patient education and counseling yes Morro Noriega MD social history reviewed E&M revi ewed - no changes required Wili Zaragoza social history reviewed E&M revi ewed - no changes required Morro Noriega MD social history E&M S moking History: Raymundo karlo is a former smoker. Wili Zaragoza smoking status Former smoker Kenyetta jasmine social history reviewed E&M revi ewed - no changes required Wili Vázquezzai smoking status Former smoker Janice davenport social history reviewed E&M revi ewed - no changes required Wili Henriquezmedzai smoking status Former smoker Maria C Fulton social history reviewed E&M revi ewed - no changes required Wili Vázquezzai FUNCTIONAL STATUS Date Observation Value Provider HRA, CV Assess/Plan, Angina (inactive) Management Plan continue current therapy Wili Henriquezmedzai HRA, CV Assess/Plan, Angina (inactive) Management Plan continue current therapy Wili Henriquezmedzai HRA, CV Assess/Plan, Angina (inactive) Management Plan continue current therapy Wili Vázquezzai HRA, CV Assess/Plan, Angina (inactive) Management Plan continue current therapy Wili Vázquezzai INSURANCE PROVIDERS Payer name Policy type / Coverage type Phyllis red republican ID [employer] MEDICARE [place] PPO Medicare [id number] ADVANCE DIRECTIVES Name Date DISCUSSED - NO DECISION MADE TREATMENT PLAN Date Name Performer [id number],SMorro MD [id number],Morro Jasmine MD [id number],Morro Singh MD [id number],Morro Jasmine MD [id number],WMorro MD [id number],SWili i [id number],SWili i [id number],SWili i [id number],SWili i [id number],SWili i [id number],S,n oted to be orthostatic on exam today. We will have him hold his lasix will do labs for further eval. echo and telemonitor planned as well to rule out valvular abnormalities or arrhythmias. will also do carotid duplex, pt will return post testing or sooner if needed. Maureen Stonemiglia [facility] [id number],S,m ild to moderate per cath. will update echo to look for any change in stenosis as pt has increasing CUEVAS. Maureen Stonemiglia [facility] [id number],S,c ath 04/2022 with non obstructive CAD. medical management at this time Maureen Stonemiglia [facility] [id number],W,m ore pronounced with minimal activity. different than pt normal COPD sx. will update echo and labs to look for underlying source of SOB Maureen Ventimiglia [facility] [id number],S, Wili Ahmedza i [id number],S, Wili Ahmedza i [id number],W, Wili Ahmedza i [id number],S, Wili Ahmedza i [id number],S, Wili Ahmedza i [id number],S, Wili Ahmedza i [id number],S, Wili Ahmedza i [id number],S, Wili Ahmedza i [id number],S, Wili Ahmedza i [id number],S, Wili Ahmedza i [id number],S, Wili Ahmedza i [id number],S, Wili Ahmedza i [id number],S, Wili Ahmedza i [id number],W, Wili Ahmedza i [id number],W, Wili Henriquezmedza i [id number],S, Wili Henriquezmedza i [id number],S, Wili Henriquezmedza i [id number],W, Wili Henriquezmedza i [id number],S, Wili Henriquezmedza i Cardiology Morro Noriega MD Cardiology: H is updated medication list for this problem includes: Trelegy Ellipta 100-62.5-25 Mcg Blister With Device (Yjlyrtyjphq-vuuxepiee-cmynfyud) Morro Noriega MD Cardiology: H is updated medication list for this problem includes: Valsartan 40 Mg Tablet (Valsartan) ..... Take 1 tablet by mouth once daily Diltiazem Hcl (cardizem Cd) 120 Mg Capsule,extended Release 24hr (Diltiazem hcl (cardizem cd)) ..... Take 1 tablet by mouth every day Morro Noriega MD Cardiology Morro Noriega MD Cardiology:This visi t has been a part of the consistent, comprehensive, and ongoing management of the chronic medical condition(s) listed above for the patient. His updated medication list for this problem includes: Diltiazem Hcl (cardizem Cd) 120 Mg Capsule,extended Release 24hr (Diltiazem hcl (cardizem cd)) ..... Take 1 tablet by mouth every day Morro Noriega MD Telehealth Wili Zaragoza Telehealth: H is updated medication list for this problem includes: Trelegy Ellipta 100-62.5-25 Mcg Blister With Device (Fizozjgzrrw-mkcdepdia-qqiskgfs) Wili Zaragoza Telehealth Wili Zaragoza Telehealth: T he following medications were removed from the medication list: Valsartan 40 Mg Tablet (Valsartan) ..... Take 1 tablet by mouth once daily His updated medication list for this problem includes: Diltiazem Hcl (cardizem Cd) 120 Mg Capsule,extended Release 24hr (Diltiazem hcl (cardizem cd)) ..... Take 1 tablet by mouth every day Orders: S tress Cardiac PET-CT (45279) [facility] ([facility]50899[facility] O rders: S tress Cardiac PET-CT (80839) m yocardial blood flow (PET) (89388) [facility]: O rders: S tress Cardiac PET-CT (83563) m yocardial blood flow (PET) (36118) [facility]: O rders: C omplete Echo (64000) [facility]: H is updated medication list for this problem includes: Valsartan 40 Mg Tablet (Valsartan) ..... Take 1 tablet by mouth once daily Orders: C omplete Echo (53455) M onitor - Telemetry (Mobile Cardiac) ([id number]) [facility]: H is updated medication list for this problem includes: Trelegy Ellipta 100-62.5-25 Mcg Blister With Device (Hfylnqpozhy-hzarategs-zulccgnr) [facility]: O rders: M onitor - Telemetry (Mobile Cardiac) (CPT-[id number]) Wili ruy Cardiology: O rders: M onitor - Telemetry (Mobile Cardiac) ([id number]) Wili Zaragoza Telehealth Morro Noriega MD Telehealth Morro Noriega MD Telehealth Morro Noriega MD Telehealth Morro Noriega MD Telehealth Morro Noriega MD Cardiology Wili Ahmedzai Cardiology Wili Ahmedzai Cardiology Wili Ahmedzai Cardiology Wili Ahmedzai Cardiology Wili Ahmedzai Cardiology:noted to be orthostatic on exam today. We will have him hold his lasix will do labs for further eval. echo and telemonitor planned as well to rule out valvular abnormalities or arrhythmias. will also do carotid duplex, pt will return post testing or sooner if needed. Maureen Ventimiglia [facility] Cardiology:mild to m oderate per cath. will update echo to look for any change in stenosis as pt has increasing CUEVAS. Maureen Ventimiglia [facility] Cardiology:cath 04/14 022 with non obstructive CAD. medical management at this time Maureen Ventimiglia [facility] Cardiology:more pron ounced with minimal activity. different than pt normal COPD sx. will update echo and labs to look for underlying source of SOB Maureen Ventimiglia [facility] Cardiology Wili Ahmedzai Cardiology Wili Ahmedzai Cardiology Wili Ahmedzai Cardiology Wili Ahmedzai Cardiology Wili Ahmedzai Cardiology Wili Ahmedzai Cardiology Wili Ahmedzai Cardiology Wili Ahmedzai Cardiology Wili Ahmedzai Cardiology Wili Ahmedzai Cardiology Wili Ahmedzai Cardiology Wili Ahmedzai Cardiology Wili Ahmedzai Cardiology Wili Ahmedzai Cardiology Wili Ahmedzai Cardiology Wili Ahmedzai Cardiology Wili Ahmedzai Cardiology Wili Ahmedzai Cardiology Wili Ortegai Date Name PROBNP, N TERMINAL IRON AND TOTAL IRON BINDING CAPACITY FERRITIN CBC (INCLUDES DIFF/P LT) myocardial blood meli w (PET) Stress Cardiac PET-C T Monitor - Telemetry (Mobile Cardiac) Complete Echo BASIC METABOLIC PANE L W/EGFR CBC (INCLUDES DIFF/P LT) LIPID PANEL PROTHROMBIN TIME WIT H INR Monitor - Telemetry (Mobile Cardiac) PROBNP, N TERMINAL TSH, free T4, total T3 IRON AND TOTAL IRON BINDING CAPACITY FERRITIN CBC (INCLUDES DIFF/P LT) HEMOGLOBIN A1c LIPID PANEL COMPREHENSIVE METABO LIC PANEL, W/EGFR Complete Echo Carotid Duplex Bilat eral PROTHROMBIN TIME WIT H INR LIPID PANEL CBC (INCLUDES DIFF/P LT) BASIC METABOLIC PANE L W/EGFR Cardiac Cath - L/R- [facility] Holter Monitor 48 hr Stress Regadenoson HISTORY OF PROCEDURES Procedure Date Procedure Name Provider Procedure Notes S tatus Complex e/m visit add on Morro Noriega MD completed Complex e/m visit add on Morro Noriega MD completed EKG Morro Noriega MD completed EKG Morro Noriega MD completed EKG Morro Noriega MD completed
--- OUTSIDE RECORDS SUMMARY | 2024-06-12 14:36 | XMS_ITS | Clinical Summary ---
Author Organization [facility] Address [address] [place] [address] Phone Care Team Providers Care Haul Driver Name Role Phone Unavailable Primary Care Provider Unavailabl e Allergies Active Allergy Reactions Criticality Noted Date Comments Codeine Nausea and Vomiting Low 02/10/2024 Opioids - Morphine Analogues Hallucination Low 01/13 Medications apixaban (Eliquis) 5 mg tablet Take 5 mg by mouth 2 times daily. Active furosemide (LASIX) 20 mg tablet Take 20 mg by mouth daily. Active valsartan (DIOVAN) 40 mg tablet Take 40 mg by mouth daily. Active fluticasone-ume clidinium-vilan terol (Trelegy Ellipta) 100-62.5-25 mcg Disk with Device Take 1 Puff by inhalation daily. Active busPIRone (BUSPAR) 5 mg tablet Take 5 mg by mouth 2 times daily. Active venlafaxine 150 mg Extended Release 24 hour tablet Take 150 mg by mouth daily with breakfast. Active rosuvastatin (CRESTOR) 10 mg tablet Take 10 mg by mouth daily at bedtime. Active tamsulosin (FLOMAX) 0.4 mg capsule Take 0.4 mg by mouth daily. Active albuterol sulfate HFA 90 mcg/actuation aerosol inhaler Take 2 Puffs by inhalation every 6 hours as needed. Active denosumab (PROLIA) 60 mg/mL Syringe Inject 60 mg by subcutaneous injection every 6 months. Active cefadroxil (DURICEF) 500 mg capsule Take 1 Capsule (500 mg) by mouth every 12 hours. 60 Capsule 5 4 Active Active Problems Problem Noted Date Diagnosed Date Chronic obstructive pulmonary disease 02/29/2024 Pyogenic arthritis of right knee joint 4 S/P total knee arthroplasty, right 02/10/2024 Paroxysmal atrial fibrillation 02/10/2024 Primary hypertension 02/10/2024 Stage 3a chronic kidney disease 02/10/2024 Prostate cancer 09/11/2017 Nonrheumatic aortic valve stenosis 06/06/2017 Overview (02/29/2024): Added automatically from request for surgery [id number] Hyperlipidemia LDL goal <70 06/06/2017 History of tobacco abuse 06/06/2017 Abdominal aortic aneurysm (AAA) without rupture 06/06/2017 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 Aortic valve disorder 2014 Overview (02/29/2024): Aortic valve disorder Cephalalgia 05/30/2013 Small cell carcinoma of lung 05/29/2013 Encounters Date Type Department Care Team Description 06/10/2024 External Device Data [facility] ABSTRACTION Provider, Abstract 06/04/2024 External Device Data [facility] ABSTRACTION Provider, Abstract 06/04/2024 External Device Data [facility] ABSTRACTION Provider, Abstract 05/20/2024 10:00 AM MAORI LIAISON ADVISER Video Visit [facility] INFECTIOUS DISEASE [facility] [address] [facility] [address] [place] [address] Jorge Su, 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) 04/04/2024 Abstract [facility] INFECTIOUS DISEASE [facility] [address] [facility] [address] [place] [address] Jorge Su DO 03/24/2024 Abstract [facility] INFECTIOUS DISEASE CAN[facility]ER B [address] [place] [address] Jorge Su DO 03/18/2024 10:30 AM MAORI LIAISON ADVISER Office Visit [facility] INFECTIOUS DISEASE [facility] [address] [facility] [address] [place] [address] Jorge Su DO 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); S/P total knee arthroplasty, right 03/18/2024 Abstract [facility] INFECTIOUS DISEASE TOWER B [address] [place] [address] Jorge Su, 03/13/2024 Abstract [facility] INFECTIOUS DISEASE CANYONER B [address] [place] [address] Jorge Su, from Last 3 Months Immunizations Immunization Administration Dates Next Due INFLUENZA VACCINE HIGH DOSE QUADRIVALENT 65 YR UP PF IM 02/26/2021,01/25/2020 Influenza Vaccine High Dose 65+ Yrs IM ,02/24/2018 Influenza, Unspecified Formulation 04/17/2017,,03/03/2015 Zoster Vaccine Live SQ 04/17/2017 Family History Medical History Relation Name Comments Heart Disease Father Relation Name Status Comments Father Social History Tobacco Use Types Packs/Day Years Used Date Smoking Tobacco: Former Cigarettes 2 - 1954 Smokeless Tobacco: Never Tobacco Cessation:Counseling Given: Not Answered Feeling Safe Answer Date Recorded Are you in a relationship wi th someone who hurts you emotionally and/or physically? No 02/28/2024 Food Insecurity Answer Date Recorded Social/Environmental Concerns No concerns Transportation Needs Answer Date Record ed Social/Environmental Concerns No concerns Housing Stability Answer Date Recorded Social/Environmental Concerns No concerns Utility Needs Answer Date Recorded Social/Environmental Concerns No concerns Sex and Gender Information Value Date Recorded Sex Assigned at Not on file Legal Sex Male 4:47 PM CDT Gender Identity Not on file Sexual Orientation Not on file Last Filed Vital Signs Vital Sign Reading Time Taken Comments Blood Pressure 146/72 03/18/2024 10:38 AM MAORI LIAISON ADVISER Pulse 89 03/18/2024 10:38 AM MAORI LIAISON ADVISER Temperature 37 ??C (98.6 ??F) 03/18/2024 10:38 AM MAORI LIAISON ADVISER Respiratory Rate 20 02/29/2024 12:36 PM CDT Oxygen Saturation 100% 02/29/2024 12:36 PM CDT Inhaled Oxygen Concentration - - Weight 73.5 kg (162 lb) 03/18/2024 10:38 AM MAORI LIAISON ADVISER Height 167.6 cm (5' 6 ) 03/18/2024 10:38 AM MAORI LIAISON ADVISER Body Mass Index 26.15 03/18/2024 10:38 AM MAORI LIAISON ADVISER Plan of Treatment Upcoming Encounters Date Type Department Care Team (Late st Contact Info) Description 09/16/2024 9:30 AM CDT Office Visit [facility] INFECTIOUS DISEASE TOWER B [address] [place] [address] Jorge Su, [address] [place] [address] Health Maintenance Due Date Last Done Comments DTAP/TDAP/TD VACCINES (1 - Tdap) 1959 PNEUMOCOCCAL VACCINE 65+ YEA RS (1 of 2 - PCV) 1957 RSV VACCINE (60+ or ) (1 - 1-dose 75+ series) 2013 ZOSTER VACCINE (2 of 3) 06/12/2017 04/17/2017 INFLUENZA VACCINE (#1) 2023 , 01/25/2020, 01/25/2020, Additional history exists Medical Devices Implanted Type Area Auto Glass Installer Device Identifier Shelf Expiration Date Model / Serial / Lot 1 Gm Surgical Powder Activated Collagen Implanted:Qty: 1 on 02/28/2024 by Ky Deng MD at [facility] Right: Knee [facility] WCI-01-SAC RXP / / Description:1X ADD LG Loop Recorder Right Total Knee Insurance AET[employer] PPO [facility] RX AET[employer] Medicare Part D Advance Directives For more information, please contact: [phone] * Full Code (Latest Code Status on File) Date Activated Date Inactivated Comments 02/28/2024 12:42 PM 02/29/2024 4:41 PM * Full Code Date Activated Date Inactivated Comments 02/28/2024 5:58 AM 02/28/2024 12:42 PM * Full Code Date Activated Date Inactivated Comments 02/10/2024 10:39 PM 02/15/2024 6:51 PM
--- OUTSIDE RECORDS SUMMARY | 2024-06-12 14:36 | XMS_ITS | Encounter Summary ---
Author Organization [facility] Address [address] [place] [address] Phone Care Team Providers Care Software Technician Name Role Phone Angelo Galvan DO Primary Care Provider [phone] Arnold Fernández MD Primary Care Prov ider Encounter Details Date Type Department Care Team (Latest Contact Info) Description 04/16/2019 Orders Only [facility] Scanning, Provider Social History Tobacco Use Types Packs/Day Years Used Date Smoking Tobacco: Former Cigarettes 1.5 60 0 [birth year]06/1955 - 06/06/2013 Smokeless Tobacco: Never Alcohol Use Standard Drinks/Week Comments No 0 (1 standard drink = 0.6 oz pur e alcohol) Sex and Gender Information Value Date Recorded Sex Assigned at Not on file Legal Sex Male 11:58 PM CUSTOMS OFFICER Gender Identity Not on file Sexual Orientation Not on file documented as of this encounter Plan of Treatment Not on file documented as of this encounter Procedures Procedure Name Priority Date/Time Associated Diagnosis Comments SCAN - RADIOLOGY/IMAGING 04/16/2019 documented in this encounter Results * SCAN - RADIOLOGY/IMAGING (04/16/2019) Anatomical Region Laterality Modality Other us Provider Scanning Final Result documented in this encounter Visit Diagnoses Not on filedocumented in this encounter Additional Health Concerns Infection Onset Date Last Indicated Resolved Time COVID: Suspected 10/09/2021 10/09/2021 10/09/2021 3:18 PM CDT documented as of this encounter Care Teams Software Technician Relationship Specialty Start Date End Date Angelo Galvan DO PCP - General Internal Medicine 08/31/17 02/09/24 Arnold Fernández MD [address] [place] [address] PCP - General Family Medicine 02/10/24 documented as of this encounter
--- OUTSIDE RECORDS SUMMARY | 2024-06-12 14:36 | XMS_ITS | Clinical Summary ---
Author Organization [facility] [employer] Address [address] [place] [address] Care Team Providers Care Maintenance Welder Name Role Phone Endy Garcia MD Primary Care Provider [phone] Source Comments [facility],non-[facility] Affiliates and Associated Physician Practices is amultiple site organization consisting of ambulatory clinics and hospital sitesin [place], [place], [place] and [place]. This disclosure is being madepursuant to the Care Everywhere program and may not contain all information available regarding this patient. Last updated 18.[facility] [employer] Immunizations Name Administration Dates Next Due INFLUENZA VACCINE, HIGH-DOSE , QUADR. (FLUZONE HIGH-DOSE QUADRIVALENT; 65Y+), 0.7 ML (HD-IIV4) 01/25/2020 Social History Tobacco Use Types Packs/Day Years Used Date Smoking Tobacco: Never Assessed Sex and Gender Information Value Date Recorded Sex Assigned at Not on file Gender Identity Not on file Sexual Orientation Not on file Plan of Treatment Health Maintenance Due Date Last Done Comments DTAP/TDAP/TD VACCINES (1 - Tdap) 1957 PNEUMOCOCCAL VACCINE 50+ (1 of 1 - PCV) 1988 ZOSTER VACCINE (1 of 2) 1988 Respiratory Syncytial Virus (RSV) Vaccine Pt: or over 60 yrs (1 - 1-dose 75+ series) 2013 COVID-19 VACCINE ( - 2023-25 season) 2024 INFLUENZA VACCINE (#1) 2024 0, 02/24/2018, 04/17/2017, Additional history exists DEPRESSION SCREENING 05/14/2024 MEDICARE AWV ? CALENDAR YEAR 2024 HEPATITIS B VACCINE Aged Out No longe r eligible based on patient's age to complete this topic HIB VACCINE Aged Out No longer eligi ble based on patient's age to complete this topic HPV VACCINE Aged Out No longer eligi ble based on patient's age to complete this topic MENINGOCOCCAL (Group B) VACCINE Aged Out No longer eligible based on patient's age to complete this topic MENINGOCOCCAL VACCINE Aged Out No tamica bjorn eligible based on patient's age to complete this topic Care Teams Maintenance Welder Relationship Specialty Start Date End Date Endy Garcia MD [address] [place] [address] PCP - General 03/22/20
--- OUTSIDE RECORDS SUMMARY | 2024-06-12 14:36 | XMS_ITS | Encounter Summary ---
Author Organization [facility] Address [address] [place] [address] Care Team Providers Care Primary Special Education Teacher Name Role Phone Unavailable Primary Care Provider Unavailabl e Encounter Details Date Type Department Care Team (Late st Contact Info) Description 06/10/2024 External Device Data [facility] ABSTRACTION Provider, Abstract NO ADDRESS ON FILE Social History Tobacco Use Types Packs/Day Years Used Date Smoking Tobacco: Former Cigarettes - 1956 Smokeless Tobacco: Never Feeling Safe Answer Date Recorded Are you [...] as of this encounter Plan of Treatment Upcoming Encounters Date Type Department Care Team (Late st Contact Info) Description 09/16/2024 9:30 AM CDT Office Visit [facility] INFECTIOUS DISEASE TOWER B [address] [place] [address] Jorge Su, [address] [place] [address] documented as of this encounter Visit Diagnoses Not on filedocumented in this encounter
--- OUTSIDE RECORDS SUMMARY | 2024-06-12 14:36 | XMS_ITS | Continuity of Care Document ---
Author Organization [facility] Address [address] [place] [address] Phone Care Team Providers Care Sampler First Name Role Phone Ed Flores Unavailable Unavailable Procedures Procedure Date Eye Exam & Treatment Refraction Post-op Follow-up Visit Refraction Post-op Follow-up Visit Remove Cataract, Insert Lens PreOp Assessment Performed Post-op Follow-up Visit IOLMaster-Professional Post-op Follow-up Visit Remove Cataract, Insert Lens PreOp Assessment Performed Office/outpatient Visit, Est Optic Nerve Head Eval Script Printed/Phoned Pt Requ Or Pharm N ot Availab Echo Exam Of Eye Office/outpatient Visit, Est Eye Exam & Treatment -2007 Office/outpatient Visit, Est Office/outpatient Visit, Est Office/outpatient Visit, Est Eye Exam Established Pt Advance Directives Directive Yes / No Effective Date File Name No Information Encounters Encounter Description Practice Location Reason(s) For Visit Diagnoses Date Provider Providers Copied on Encounter [facility], [address], [place], [place], [address], [place] tel:[phone] [facility] No Information Hebert-0 8-201 0 Doisy Edjunie. [address], [place], [address], [place]. tel:[phone] [facility] Eye [facility], [address], [place], [place], [address], [place] tel:[phone] [facility] No Information Apr-0 9-200 9 Das OD Layo. [address] , [address], [place], [place], [facility], [place]. tel:[phone] [facility] Eye [facility], [address], [place], [place], [address], [place] tel:[phone] [facility] No Information Mar-2 5-200 9 Doisy Edjunie. [address] [facility] , [address], [place], [place], [facility], [place]. tel:[phone] [facility] Eye [facility], [address], [place], [place], [address], [place] tel:[phone] [facility] No Information Mar-2 4-200 9 Doisy Edjunie. [address] , [address], [place], [facility], [place]. tel:[phone] [facility] Eye [facility], [address], [place], [place], [address], [place] tel:[phone] [facility] No Information Mar-1 8-200 9 Doisy Edjunie. [address] , [address], [place], [address], [place]. tel:[phone] Referring Provider: Ed Pérez, [facility] [address], [place], [place], [facility]. tel:[phone] [facility] Eye [facility], [address], [place], [place], [address], [place] tel:[phone] [facility] No Information Mar-0 4-200 9 Mark Ward. [address] [facility] , [address], [place], [address], [place]. tel:[phone] [facility] Eye [facility], [address] [place] [address] [address], [place], [place], [address], [place] tel:[phone] [facility] No Information Mar-0 3-200 9 Mark Ward. [address] , [address], [place], [facility], [place]. tel:[phone] Office/outpat ient Visit, [facility], [address] [place] [address] [address], [place], [place], [address], [place] tel:[phone] [facility] [place] No Information Feb-2 3-200 9 Mark Ward. [address] [facility] , [address], [place], [facility], [place]. tel:[phone] Referring Provider: Ed Pérez, [address] [place], [place] [address], [place], [facility]. tel:[phone] Office/outpat ient Visit, [facility], [address] [place] [address] [address], [place], [place], [address], [place] tel:[phone] [facility] No Information Nov-1 0-200 8 Mark Ward. [address] , [address], [place], [facility], [place]. tel:[phone] [facility] Eye [facility], [address] [place] [address] [address], [place], [place], [address], [place] tel:[phone] [facility] No Information Oct-2 4-200 8 Das OD Layo. [address] [facility] , [address], [place], [facility], [place]. tel:[phone] Office/outpat ient Visit, [facility] Eye [facility], [address] [place] [address] [address], [place], [place], [address], [place] tel:[phone] [facility] No Information Sep-2 7-200 7 Das OD Layo. [address] [facility] , [address], [place], [facility], . tel:[phone] Office/outpat ient Visit, [facility] Eye [facility], [address] [place] [address] [address], [place], [place], [address], [place] tel:[phone] [facility] No Information Sep-2 5-200 7 Das OD Layo. [address] [facility] , [address], [place], [address], . tel:[phone] Office/outpat ient Visit, [facility], [address] [place] [address] [address], [place], [place], [address], tel:[phone] [facility] [place] No Information Nov-1 1-200 7 Das OD Layo. [address] [facility] [address], [address], [place], [address], . tel:[phone] [facility], [address] [place] [address] [address], [place], [place], [address], tel:[phone] [facility] No Information Mitchell-2 7-200 7 Das OD Layo. [address] [facility] , [address], [place], [facility], [place]. tel:[phone] Family History Family Member Type Diagnosis Age At Onset No Information Payers Payer name Insurance type Covered constitution party ID Authoriza tishira(s) [place] [id number] [facility] [id number] Social History Type Description Quantity Date Captured Comments Sex Male Smoking Status No Information Chief Complaint And Reason For Visit No Information Reason For Referral Reason For Referral No Information History Of Present Illness Encounter Date Complaint History Of Prese nt Illness No Information Functional Status Date Functional Assessmen t No Information Instructions Date Instruction Additional Infor mation No Information Assessments Type Assessment Date No Information Patient Care Teams Name Effective Dates (start - stop) Status Members No Information
--- OUTSIDE RECORDS SUMMARY | 2024-06-12 14:36 | XMS_ITS | Referral Summary ---
Author Organization [facility] Address [address] [place] [address] Care Team Providers Care Quality Assurance Supervisor Name Role Phone Endy Garcia MD Primary Care Provider Source Comments [facility],non[facility] Affiliates and Associated Physician Practices is amultiple site organization consisting of ambulatory clinics and hospital sitesin [place], [place], [place] and [place]. This disclosure is being madepursuant to the Care Everywhere program and may not contain all information available regarding this patient. Last updated 18.[facility] Immunizations Name Administration Dates Next Due INFLUENZA VACCINE, HIGH-DOSE , QUADR. (FLUZONE HIGH-DOSE QUADRIVALENT; 65Y+), 0.7 ML (HD-IIV4) 01/25/2020 Social History Tobacco Use Types Packs/Day Years Used Date Smoking Tobacco: Never Assessed Sex and Gender Information Value Date Recorded Sex Assigned at Not on file Gender Identity Not on file Sexual Orientation Not on file Plan of Treatment Not on file Care Teams Quality Assurance Supervisor Relationship Specialty Start Date End Date Endy Gacria MD [address] [facility] [address] [facility] [address] [place] [address] PCP - General 03/22/20
--- OUTSIDE RECORDS SUMMARY | 2024-06-12 14:36 | XMS_ITS | Clinical Summary ---
Author Organization [facility] [address] Address [address] [place] [address] Care Team Providers Care Pharmacy Picking Technician Name Role Phone Arnold Fernández MD Primary Care Prov ider Allergies Active Allergy Reactions Criticality Noted Date Comments Codeine Nausea & Vomiting,Vomiting Low Codeine Phosphate Stomach upset Low 07/22/2013 Opioids - Morphine Analogues Hallucinations Medium 07/22/2013 Medications apixaban (ELIQUIS) 5 mg tablet take 1 tablet by oral route 2 times every day 60 0 7 Active Additional Information Patient taking differently:5 mgoral 2 times daily, Reported on 05/02/2023 venlafaxine XR (EFFEXOR XR) 150 mg 24 hr capsule take 1 capsule by oral route every day 0 0 3 Active Additional Information Patient taking differently:150 mgoral Daily, Reported on 05/02/2023 furosemide (LASIX) 20 mg tablet Take 1 tablet (20 mg total) by mouth daily Active albuterol HFA (PROVENTIL HFA,VENTOLIN HFA) 90 mcg/actuation inhaler Inhale 2 puffs every 6 (six) hours as needed for wheezing Active spironolactone (ALDACTONE) 25 mg tablet Take 1 tablet (25 mg total) by mouth daily Active TRELEGY ELLIPTA 100-62.5-25 mcg blister with device 8 Active valsartan (DIOVAN) 40 mg tablet Take 1 tablet (40 mg total) by mouth daily 10/20/202 3 Active denosumab (PROLIA) 60 mg/mL syringe Inject under the skin once Active Brenurytri Aerosphere 160-9-4.8 mcg/actuation inhaler Inhale 2 puffs 2 (two) times a day 4 Active busPIRone (BUSPAR) 5 mg tablet Take 1 tablet (5 mg total) by mouth 2 (two) times a day 4 Active Active Problems Problem Noted Date Diagnosed Date Stage 3a chronic kidney disease 02/10/2024 History of total knee arthroplasty 02/10/2024 Effusion of right knee 02/10/2024 CUVEAS (dyspnea on exertion) 02/05/2018 Aortic valve stenosis 02/05/2018 Overview (02/05/2018): Added automatically from request for surgery [id number] Hemorrhoids 09/11/2017 Prostate cancer 09/11/2017 Double vision 06/06/2017 Blurry vision 06/06/2017 Chronic anticoagulation 06/06/2017 Nonrheumatic aortic valve stenosis 06/06/2017 Abdominal aortic aneurysm (AAA) without rupture 06/06/2017 Assessment & Plan (05/02/2023 10:22 AM INSTITUTIONAL ASSET MANAGER): 3.1 cm infrarenal abdominal aortic aneurysms, discussed finding with the patient with the recommendation for intervention at 5.5 cm or with rapid growth. Recommend risk factor modification with ASA, statin therapy in good blood pressure control. Discussed the importance of ongoing surveillance with repeat aortoiliac duplex in 1 year. Dizziness 06/06/2017 Hyperlipidemia LDL goal <70 06/06/2017 Assessment & Plan (05/02/2023 10:22 AM INSTITUTIONAL ASSET MANAGER): Stable continue Crestor 10 mg. History of [...] 2014 Assessment & Plan (05/02/2023 10:21 AM INSTITUTIONAL ASSET MANAGER): Stable continue Eliquis 5 mg. Cephalalgia 05/30/2013 Small cell carcinoma of lung 05/29/2013 Chronic obstructive pulmonary disease Encounters Date Type Department Care Team Description 05/28/2024 Telephone [facility] Vascular and Vein Surgery [address] [place] [address] [place] [phone] Tila Hawkins MD 05/21/2024 10:00 AM INSTITUTIONAL ASSET MANAGER Ancillary Procedure [facility] Vascular and Vein Surgery at [address] [place] [address] Infrarenal abdominal aortic aneurysm (AAA) without rupture (HCC) 04/24/2024 Telephone [facility] Vascular and Vein Surgery [address] [place] [address] [place] [phone] Elena Torrez MA 04/24/2024 Telephone [facility] Vascular and Vein Surgery [address] [place] [address] [place] [phone] Odalys Duarte 04/24/2024 Telephone [facility] Vascular and Vein Surgery [address] [place] [address] [address] [place] [address] Elena Torrez MA 04/24/2024 Orders Only [facility] Vascular and Vein Surgery [address] [place] [address] [place] [phone] Tila Hawkins MD Infrarenal abdominal aortic aneurysm (AAA) without rupture (HCC) (Primary Dx) from Last 3 Months Immunizations Name Administration Dates Next Due Influenza, Quadrivalent, Hig h Dose, Preservative Free, Intrr 02/26/2021 Influenza, Trivalent, High D ose, Split, Preservative Free, Intramuscular 01/25/2020,02/24/2018 Influenza, Unspecified 04/17/2017,03/01/2016, ZOSTER LIVE 04/17/2017 Surgical History Surgery Date Site/Laterality Comments NEPHRECTOMY Right Nephrectomy OTHER SURGICAL HISTORY Left wrist fused OTHER SURGICAL HISTORY Right kidney removed TOTAL KNEE ARTHROPLASTY right total knee replacement OTHER SURGICAL HISTORY right ear surgery LUNG LOBECTOMY 05/14/2004 - 05/13/2005 Right CATARACT EXTRACTION, BILATERAL Bilateral ROTATOR CUFF REPAIR Bilateral JOINT REPLACEMENT EYE SURGERY COLONOSCOPY Medical History Medical History Date Comments Chronic obstructive pulmonar y disease (HCC) COPD Hx Other Medical Cataracts Hx Other Medical Depression, wit h Anxiety Hx Other Medical lung CA, RUL lo bectomy; Comments: [facility] 2014 - Hx Other Medical 05-23-16 Left AC resection/decompression.; Comments: [facility] 06/06/2016 - Atrial fibrillation (CMS/HCC) (HCC) Aortic valve insufficiency Hypertension Depression Cataract Hemorrhoids Hard of hearing bilaterally Hyperlipidemia Cancer (CMS/HCC) (HCC) 2013 small bar l lung cancer Prostate cancer (HCC) 2016 45 radiati on tx History of transfusion during ne phrectomy Family History Medical History Relation Name Comments Heart disease Father CHF Other Father heart; Heart disease Mother CHF Other Mother Heart; Cause of : Heart Hypertension Other 1 Family history of Hypertension; Cancer Other 2 Family history of Cancer; Arthritis Other 3 Family history of Arthritis; Relation Name Status Comments Father Mother (Age 81) Other 1 Other 2 Other 3 Social History Tobacco Use Types Packs/Day Years Used Date Smoking Tobacco: Former Cigarettes 1.5 60 0 06/06/1953 - 06/06/2013 Smokeless Tobacco: Never Alcohol Use Standard Drinks/Week Comments No 0 (1 standard drink = 0.6 oz pur e alcohol) Personal Safety Answer Date Recorded Have you ever been in or are you currently in a harmful physical or emotional relationship or is someone making you feel afraid or unsafe? Denies 02/22/2024 Sex and Gender Information Value Date Recorded Sex Assigned at Not on file Legal Sex Male 11:58 PM INSTITUTIONAL ASSET MANAGER Gender Identity Not on file Sexual Orientation Not on file Obstetrics History Last Filed Vital Signs Vital Sign Reading Time Taken Comments Blood Pressure 144/85 02/23/2024 12:15 AM CDT Pulse 100 02/23/2024 12:15 AM CDT Temperature 36.9 ??C (98.4 ??F) 02/22/2024 7:17 PM CD T Respiratory Rate 17 02/22/2024 11:40 PM CDT Oxygen Saturation 98% 02/23/2024 12:15 AM CDT Inhaled Oxygen Concentration - - Weight 72.1 kg (159 lb) 02/22/2024 7:17 PM CDT Height 167.6 cm (5' 6 ) 02/10/2024 10:17 AM CDT Body Mass Index 25.66 02/10/2024 10:17 AM CDT Plan of Treatment Health Maintenance Due Date Last Done Comments Depression Screening 1940 Fall Risk Assessment 1940 Pneumococcal vaccine 65+ (1 of 2 - PCV) 1944 DTaP/Tdap/Td Vaccine (1 - Tdap) 1949 Hepatitis B Screening 1956 Well Visit 65+ 2003 Zoster Vaccine (2 of 3) 06/12/2017 04/17/2017 Covid-19 Vaccine (4 - 2023-2 5 season) 2024 02/26/2021, 08/03/2020, 07/13/2020 Influenza Vaccine (#1) 2024 , 01/25/2020, 02/24/2018, Additional history exists Medical Devices Implanted Type Area Field Laborer Device Identifier Shelf Expiration Date Model / Serial / Lot [employer] [id number] Angio-Seal Vip Bondek-Plus 6fr .035in 70cm Hemostatic Latex Free - [id number] Implanted:Qty: 1 on 02/12/2018 by Tiara Rodriguez MD at [facility] [employer] 10/11/2018 [id number] / / [id number] Procedures Procedure Name Priority Date/Time Associated Diagnosis Comments US DUPLEX SCAN AORTA, IVC ILIAC COMPLETE Schedule Routine, Read Routine (OP Routine) 05/21/2024 10:47 AM INSTITUTIONAL ASSET MANAGER Infrarenal abdominal aortic aneurysm (AAA) without rupture (HCC) from Last 3 Months Results * US Duplex Scan Aorta, IVC Iliac Complete (05/21/2024 10:47 AM INSTITUTIONAL ASSET MANAGER) LV EF % CONS SCIMAGE Anatomical Region Laterality Modality Vascular N/A Ultrasound 05/21/2024 10:0 0 AM INSTITUTIONAL ASSET MANAGER Narrative 05/23/2024 1:19 PM INSTITUTIONAL ASSET MANAGER Vascular & Vein Surgery [address] [place] [address]. [place] [address] Abdominal Aortic Duplex Ultrasound Report Patient Name: DAVIDE THOMSON W : 1940 Study Date: 05/21/2024 10:00:05 AM Gender: M Paint Line Supervisor: DEVIN Location: [facility] Ref Provider: TILA HAWKINS ?Quality: Adequate Order Provider: TILA HAWKINS ?? PROCEDURES: Arterial Report: Duplex ultrasound imaging of the abdominal aorta. ?? INDICATIONS: Follow up AAA and I71.43 Infrarenal abdominal aortic aneurysm, without rupture. ?? HISTORY: Hypertension. Hyperlipidemia. Afib. COPD. Prostate/lung CA. Former smoker. ?? COMPARISONS: Prior CTA @ [facility] 02/16/23. ?? MEASUREMENTS: Velocities ?Value ?Diameters ? Value Aorta Prx PSV ? 57.00 cm/sec ? Aorta Prx AP Dim ?2.75 cm Aorta Mid PSV ? 47.00 cm/sec ? Aorta Prx Trans Dim ? 2.86 cm Aorta Dst PSV ? 69.00 cm/sec ? Aorta Mid AP Dim ?2.44 cm Rt Com Iliac Prx PSV ?129.00 cm/sec ?Aorta Mid Trans Dim ? 2.37 cm Lt Com Iliac Prx PSV ?142.00 cm/sec ?Aorta Dst AP Dim ?2.98 cm Aorta Dst Trans Dim ? 3.16 cm Rt Com Iliac Prx AP Dim ? 1.04 cm Rt Com Iliac Prx Trans Dim ?0.94 cm Lt Com Iliac Prx AP Dim ? 1.07 cm Lt Com Iliac Prx Trans Dim ?0.97 cm - ?? MEASUREMENTS: ?? FINDINGS: Study Quality: Adequate. Abdominal Aorta: Infrarenal abdominal aortic aneurysm measurin.98 x 3.16 cm. Atherosclerotic plaque noted. Flow velocities and spectral waveforms are within normal limits. Compared to the prior study, no significant change. ?? CONCLUSIONS: 1. Abdominal aortic aneurysm, maximum diameter 3.16 cm. ?? ATTESTATION: I have reviewed and interpreted the pertinent images and measurements of this study. I attest to the conclusions in the final report that is provided above. Electronically Signed By: Tila Hawkins MD [facility] 05/23/2024 1:18:34 PM INSTITUTIONAL ASSET MANAGER Procedure Note Tila Hawkins MD - 05/23/2024 Vascular & Vein Surgery [address] [facility] [place] [address] Abdominal Aortic Duplex Ultrasound Report Patient Name: DAVIDE THOMSON W : 1940 Study Date: 05/21/2024 10:00:05 AM Gender: M Paint Line Supervisor: Location: [facility] Ref Provider: TILA HAWKINS Quality: Adequate Order Provider: TILA HAWKINS PROCEDURES: Arterial Report: Duplex ultrasound imaging of the abdominal aorta. INDICATIONS: Follow up AAA and I71.43 Infrarenal abdominal aortic aneurysm, withoutrupture. HISTORY: Hypertension. Hyperlipidemia. Afib. COPD. Prostate/lung CA. Formersmoker. COMPARISONS: Prior CTA @ [facility] 02/16/23. MEASUREMENTS: Velocities Value DiametersValue Aorta Prx PSV 57.00 cm/sec Aorta Prx AP Dim2.75 cm Aorta Mid PSV 47.00 cm/sec Aorta Prx Trans Dim2.86 cm Aorta Dst PSV 69.00 cm/sec Aorta Mid AP Dim2.44 cm Rt Com Iliac Prx PSV 129.00 cm/sec Aorta Mid Trans Dim2.37 cm Lt Com Iliac Prx PSV 142.00 cm/sec Aorta Dst AP Dim2.98 cm Aorta Dst Trans Dim 3.16 cm Rt Com Iliac Prx AP Dim 1.04 cm Rt Com Iliac Prx Trans Dim 0.94 cm Lt Com Iliac Prx AP Dim 1.07 cm Lt Com Iliac Prx Trans Dim 0.97 cm - MEASUREMENTS: FINDINGS: Study Quality: Adequate. Abdominal Aorta: Infrarenal abdominal aortic aneurysm measurin.98 x 3.16 cm.Atherosclerotic plaque noted. Flow velocities and spectral waveforms are within normal limits.Compared to the prior study, no significant change. CONCLUSIONS: 1. Abdominal aortic aneurysm, maximum diameter 3.16 cm. ATTESTATION: I have reviewed and interpreted the pertinent images and measurements ofthis study. I attest to the conclusions in the final report that is provided above. Electronically Signed By: Tila Hawkins MD [facility] 05/23/2024 1:18:34 PM INSTITUTIONAL ASSET MANAGER Tila Hawkins MD [facility] PROCEDURES Final Result from Last 3 Months Insurance AETNA MEDICARE [facility]IC[facility] Address: [facility] [id number] [place] [id number] FORMERLY [facility] MEDICARE [facility] MEDIC[facility] Address: [facility] [address] [place] [address] FORMERLY [facility] MEDICARE MEDICARE SOLUTIONS Advance Directives For more information, please contact: [phone] * Full Code (Latest Code Status on File) Date Activated Date Inactivated Comments 02/12/2018 1:31 PM 02/12/2018 5:35 PM * Full Code Date Activated Date Inactivated Comments 10/12/2017 2:15 PM 10/13/2017 5:10 PM Care Teams Pharmacy Picking Technician Relationship Specialty Start Date End Date Arnold Fernández MD [address] [place] [address] PCP - General Family Medicine 02/10/24
--- OUTSIDE RECORDS SUMMARY | 2024-06-12 14:36 | XMS_ITS ---
Author Organization [facility] Address [address] [place] [address] Phone Care Team Providers Care Panel Edge Painter Name Role Phone Unavailable Primary Care Provider Unavailabl e Active Problems Problem Noted Date Diagnosed Date Chronic obstructive pulmonary disease 02/29/2024 Pyogenic arthritis of right knee joint 4 S/P total knee arthroplasty, right 02/10/2024 Paroxysmal atrial fibrillation 02/10/2024 Primary hypertension 02/10/2024 Stage 3a chronic kidney disease 02/10/2024 Prostate cancer 09/11/2017 Nonrheumatic aortic valve stenosis 06/06/2017 Overview (02/29/2024): Added automatically from request for surgery [id number] Hyperlipidemia LDL goal <70 06/06/2017 History of tobacco abuse 06/06/2017 Abdominal aortic aneurysm (AAA) without rupture 06/06/2017 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 Past Treatment and Therapy Plans No past plan information found. Lifetime Dose Tracking * Chemical Lifetime Dose Automatic Entry Manual Entr y Total DLP 580.22 DLP 580.22 DLP 0 DLP CTDIvol Max 17.78 mGy 17.78 mGy 0 mGy
--- OUTSIDE RECORDS SUMMARY | 2024-06-12 14:36 | XMS_ITS | Referral Summary ---
Author Organization [facility] [address] Address [address] [place] [address] Care Team Providers Care Watch Inspector Name Role Phone Arnold Fernández MD Primary Care Prov ider Encounters Date Type Department Care Team Description 05/28/2024 Telephone [facility] Vascular and Vein Surgery [address] [place] [phone] Tila Hawkins MD 05/21/2024 10:00 AM SWIMMING COACH Ancillary Procedure [facility] Vascular and Vein Surgery at [address] [place] [phone] Infrarenal abdominal aortic aneurysm (AAA) without rupture (HCC) 04/24/2024 Telephone [facility] Vascular and Vein Surgery [address] [place] [address] Elena Torrez MA 04/24/2024 Telephone [facility] Vascular and Vein Surgery [address] [place] [phone] Odalys Duarte 04/24/2024 Telephone [facility] Vascular and Vein Surgery [address] [place] [address] Elena Torrez MA 04/24/2024 Orders Only [facility] Vascular and Vein Surgery [address] [place] [address] Tila Hawkins MD Infrarenal abdominal aortic aneurysm (AAA) without rupture (HCC) (Primary Dx) from Last 3 Months Allergies Active Allergy Reactions Criticality Noted Date [...] tablet (40 mg total) by mouth daily 3 Active denosumab (PROLIA) 60 mg/mL syringe Inject under the skin once Active Breztri Aerosphere 160-9-4.8 mcg/actuation inhaler Inhale 2 puffs [...] (02/05/2018): Added automatically from request for surgery [id number] Hemorrhoids 09/11/2017 Prostate cancer 09/11/2017 Double vision 06/06/2017 Blurry vision 06/06/2017 Chronic anticoagulation 06/06/2017 Nonrheumatic aortic valve stenosis 06/06/2017 Abdominal aortic aneurysm (AAA) without rupture 06/06/2017 Assessment & Plan (05/02/2023 10:22 AM SWIMMING COACH): 3.1 cm infrarenal abdominal aortic aneurysms, discussed finding with the patient with the recommendation for intervention at 5.5 cm or with rapid growth. Recommend risk factor modification with ASA, statin therapy in good blood pressure control. Discussed the importance of ongoing surveillance with repeat aortoiliac duplex in 1 year. Dizziness 06/06/2017 Hyperlipidemia LDL goal <70 06/06/2017 Assessment & Plan (05/02/2023 10:22 AM SWIMMING COACH): Stable continue Crestor 10 mg. History of [...] 2014 Assessment & Plan (05/02/2023 10:21 AM SWIMMING COACH): Stable continue Eliquis 5 mg. Cephalalgia 05/30/2013 Small cell carcinoma of lung 05/29/2013 Chronic obstructive pulmonary disease Immunizations Name Administration Dates Next Due Influenza, Quadrivalent, Hig h Dose, Preservative Free, Intrr 02/26/2021 Influenza, Trivalent, High D ose, Split, Preservative Free, Intramuscular 01/25/2020,02/24/2018 Influenza, Unspecified 04/17/2017,03/01/2016, ZOSTER LIVE 04/17/2017 Social History Tobacco Use Types Packs/Day Years [...] on file Legal Sex Male 11:58 PM SWIMMING COACH Gender Identity Not on file Sexual Orientation [...] 02/10/2024 10:17 AM CDT Plan of Treatment Not on file Medical Devices Implanted Type Area Discharge Door Operator Device Identifier Shelf Expiration Date Model / Serial / Lot [employer] [id number] Angio-Seal Vip Bondek-Plus 6fr .035in 70cm Hemostatic Latex Free - [id number] Implanted:Qty: 1 on 02/12/2018 by Tiara Rodriguez MD at [facility] [employer] 10/11/2018 [id number] / / [id number] Procedures Procedure Name Priority Date/Time Associated Diagnosis Comments US DUPLEX SCAN AORTA, IVC ILIAC COMPLETE Schedule Routine, Read Routine (OP Routine) 05/21/2024 10:47 AM SWIMMING COACH Infrarenal abdominal aortic aneurysm (AAA) without rupture (HCC) from Last 3 Months Results * US Duplex Scan Aorta, IVC Iliac Complete (05/21/2024 10:47 AM SWIMMING COACH) LV EF % CONS SCIMAGE Anatomical Region Laterality Modality Vascular N/A Ultrasound 05/21/2024 10:0 0 AM SWIMMING COACH Narrative 05/23/2024 1:19 PM SWIMMING COACH Vascular & Vein Surgery [facility][note 3] [facility] [place] [address] Abdominal Aortic Duplex Ultrasound Report Patient Name: DAVIDE THOMSON W : 1940 Study Date: 05/21/2024 10:00:05 AM Gender: M Sales Support Coordinator: Location: [facility] Ref Provider: TILA HAWKINS ?Quality: [...] Tila Hawkins MD [facility] 05/23/2024 1:18:34 PM SWIMMING COACH Procedure Note Tila Hawkins MD - 05/23/2024 Vascular & Vein Surgery [address] [facility] [place] [address] Abdominal Aortic Duplex Ultrasound Report Patient Name: DAVIDE THOMSON W : 1940 Study Date: 05/21/2024 10:00:05 AM Gender: M Sales Support Coordinator: Location: [facility] Ref Provider: TILA HAWKINS Quality: Adequate Order Provider: TILA HAWKINS PROCEDURES: Arterial Report: Duplex ultrasound imaging of the abdominal aorta. INDICATIONS: Follow up AAA and I71.43 Infrarenal abdominal aortic aneurysm, withoutrupture. HISTORY: Hypertension. Hyperlipidemia. Afib. COPD. Prostate/lung CA. Formersmoker. COMPARISONS: Prior CTA @ [facility] 02/16/23. MEASUREMENTS: Velocities Value DiametersValue Aorta Prx [...] above. Electronically Signed By: Tila Hawkins MD [facility] 05/23/2024 1:18:34 PM SWIMMING COACH Tila Hawkins MD [facility] PROCEDURES Final Result from Last 3 Months Insurance AETNA MEDICARE [facility] MEDICARE [facility] MEDIC[facility] MEDICARE SOLUTIONS Advance Directives For more information, please contact: [phone] * Full Code (Latest Code Status on File) Date Activated Date Inactivated Comments 02/12/2018 1:31 PM 02/12/2018 5:35 PM * Full Code Date Activated Date Inactivated Comments 10/12/2017 2:15 PM 10/13/2017 5:10 PM Care Teams Watch Inspector Relationship Specialty Start Date End Date Arnold Fernández MD [address] [place] [address] PCP - General Family Medicine 02/10/24
--- OUTSIDE RECORDS SUMMARY | 2024-06-12 14:36 | XMS_ITS | Patient Health Summary ---
Author Organization [facility] Address [address] [place] [address] Care Team Providers Care Thermodynamic Physicist Name Role Phone Endy Garcia MD Primary Care Provider [phone] Note from [facility],non-owned Affiliates and Associated Physician Practices is amultiple site organization consisting of ambulatory clinics and hospital sitesin [place], [place], [place] and [place]. This disclosure is being madepursuant to the Care Everywhere program and may not contain all information available regarding this patient. Last updated 18.[facility] Immunizations * INFLUENZA VACCINE, HIGH-DOSE, QUADR. (FLUZONE HIGH-DOSE QUADRIVALENT; 65Y+), 0.7 ML (HD-IIV4)(Given 01/25/2020) Social History Tobacco Use Types Packs/Day Years Used Date Smoking Tobacco: Never Assessed Sex and Gender Information Value Date Recorded Sex Assigned at Not on file Gender Identity Not on file Sexual Orientation Not on file Procedures * DERMATOPATHOLOGY(Performed 11/27/2018) * DERMATOPATHOLOGY(Performed 10/30/2018) * DERMATOPATHOLOGY(Performed 12/18/2012) Results * DERMATOPATHOLOGY (11/27/2018 12:00 AM CDT) Only the most recent of3 resultswithin the time period is included. Case Report Dermatopathology Report ? Case: [id number] ? Authorizing Provider: ??Raymond Aguero MD ?Collected: ? 11/27/2018 12:00 AM ? Pathologist: ? Davy Ramirez MD ? Received: ?11/28/2018 11:37 AM ? Specimen: ?Skin, left superior forehead left of midline ? 3:44 PM CDT DERMATOPATHOLOGY LABORATORY Final Diagnosis Specimen A. SKIN, left superior forehead left of midline: EPIDERMOID CYST (L72.0) 3:44 PM CDT DERMATOPATHOLOGY LABORATORY Clinical History R/O EIC. 3:44 PM CDT DERMATOPATHOLOGY LABORATORY Gross Description Specimen A: Received is one formalin filled container labeled with the patient's name and designated left superior forehead left of midline. The specimen consists of a [id number] excision, bisected. Jar 0. 3:44 PM CDT DERMATOPATHOLOGY LABORATORY Microscopic Description Specimen A. SKIN, left superior forehead left of midline: Within the dermis, there is a space lined by epithelium that resembles normal epidermis and the infundibular portion of the hair follicle. 3:44 PM CDT DERMATOPATHOLOGY LABORATORY Disclaimer An external and internal positive and negative controls are appropriate for the histochemical, immunohistochemical and immunofluorescence stain(s) in this case (if any), except where stated explicitly. The performance characteristics of the stain(s) cited in this report were developed and its performance characteristic determined by the Dermatopathology Laboratory at [facility], directed by Dr. Gris Ramirez. These tests need not be, and therefore are not, approved by the [place] Food and Drug Administration. The tests are used for clinical purposes. Billing Codes Specimen Charges Stain Charges 02455 1 9 3:44 PM CDT DERMATOPATHOLOGY LABORATORY Embedded Images 9 3:44 PM CDT DERMATOPATHOLOGY LABORATORY Pathology/Cytolog y TISSUE SPECIMEN FROM SKIN / Unknown 11/27/2018 11/28/2018 11:37 AM CDT Raymond Aguero MD LAB - PATHOLOGY/CYTO LOGY ORDERABLES DERMATOPATHOLOGY LABORATORY [facility] - Department of Dermatology [address] [facility], 5th Floor Lab [address] [phone] Care Teams Thermodynamic Physicist Relationship Specialty Start Date End Date Endy Garcia MD [address] [facility] [address] [place] [address] PCP - General 03/22/20
[2024-06-12 14:45] LABS: Basophils Percent Auto 0.6 % (0.2-1.2); Eosinophils Absolute Auto 0.2 K/mm3 (0-0.3); Hematocrit 35.7 % (42.0-52.0); Hemoglobin 10.8 g/dL (14.0-18.0); Immature Granulocyte Absolute 0.02 K/mm3 (0.00-0.031); Immature Granulocyte Percent A 0.4 % (0-0.5); Lymphocytes Absolute Auto 0.85 K/mm3 (0.9-3.2); Lymphocytes Percent Auto 16.1 % (18.3-44.2); Mean Corpuscular HGB Conc 30.3 g/dl (32-36); Mean Platelet Volume 9.6 fl (7.4-10.4); Monocytes Absolute Auto 0.5 K/mm3 (0.1-0.6); Monocytes Percent Auto 9.1 % (2.6-8.5); Neutrophils Absolute Auto 3.7 K/mm3 (1.3-6.7); Neutrophils Percent Auto 69.8 % (45.5-73.1); Platelet Count Result 232 k/mm3 (150-375); Red Blood Count 4.15 M/mm3 (4.6-6.20); Red Cell Distribution Width 14.8 % (11.5-14.5); White Blood Count 5.3 K/mm3 (4.5-10.0)
[2024-06-12 14:56] LABS: NT Pro B Type Natriuretic Pept 189 pg/mL (19.9-100)
[2024-06-12 15:17] LABS: Iron 53 ug/dL (49-181)
[2024-06-12 15:28] LABS: Percent Iron Saturation 13 % (20-50)
== END 2024-06-12 13:53 | disposition home or self-care (01) ==
LOC: ANHLAB 13:54
PROVIDERS: PCP Family Medicine Adolescent Medicine; Visit Provider Internal Medicine Cardiovascular Disease
DX: I35.0 Nonrheumatic aortic (valve) stenosis (principal); R06.02 Shortness of breath; I25.10 Atherosclerotic heart disease of native coronary artery without angina pectoris; Z86.79 Personal history of other diseases of the circulatory system; R55 Syncope and collapse; R53.1 Weakness; Z13.6 Encounter for screening for cardiovascular disorders; J44.9 Chronic obstructive pulmonary disease, unspecified; C34.90 Malignant neoplasm of unspecified part of unspecified bronchus or lung; F17.200 Nicotine dependence, unspecified, uncomplicated; R42 Dizziness and giddiness; C67.9 Malignant neoplasm of bladder, unspecified
CPT/HCPCS: 36415; 82728; 83540; 83550; 83880; 85025

== ENCOUNTER 2024-06-18 07:25 | Outpatient (CLI) | payer MEDICARE, SELFPAY ==
--- OUTSIDE RECORDS SUMMARY | 2024-06-18 07:27 | XMS_ITS | Encounter Summary ---
Author Organization [facility] Address [address] [place] [address] Care Team Providers Care Pump Operator Name Role Phone Endy Garcia MD Primary Care Provider [phone] Angelo Galvan DO Primary Care Provider [phone] Endy Garcia MD Primary Care Provider [phone] Encounter Details Date Type Department Care Team (Late st Contact Info) Description 11/28/2018 Lab Requisition [facility] DermPath Lab [address] [place] [phone] Raymond Aguero MD [address] [place] [address] Social History Tobacco Use Types [...] CDT) Case Report Dermatopathology Report ? Case: [id number] ? Authorizing Provider: ??Raymond Aguero MD ?Collected: [...] of midline. The specimen consists of a [id number] excision, bisected. Jar 0. 3:44 PM T [...] characteristic determined by the Dermatopathology Laboratory at [facility], directed by Dr. Gris Ramirez. These tests need not be, and therefore are not, approved by the [place] Food and Drug Administration. The tests are used for clinical purposes. Billing Codes Specimen Charges Stain Charges 62320 1 9 3:44 PM CDT DERMATOPATHOLOGY LABORATORY Embedded Images 9 3:44 PM CDT DERMATOPATHOLOGY LABORATORY Pathology/Cytolog y TISSUE SPECIMEN FROM SKIN / Unknown 11/27/2018 11/28/2018 11:37 AM CDT Raymond Aguero MD LAB - PATHOLOGY/CYTO LOGY ORDERABLES DERMATOPATHOLOGY LABORATORY [facility] - Department of Dermatology [address] [place] [address], 5th Floor Lab [address] [phone] documented in this encounter Visit Diagnoses Not on filedocumented in this encounter Care Teams Pump Operator Relationship Specialty Start Date End Date Endy Garcia MD [address] [place] [address] PCP - General 10/31/18 01/24/20 Angelo Galvan DO [address] [place] [address] PCP - General Internal Medicine 01/25/20 03/21/20 Endy Garcia MD [address] [place] [address] PCP - General 03/22/20 documented as of this encounter
--- OUTSIDE RECORDS SUMMARY | 2024-06-18 07:27 | XMS_ITS | Encounter Summary ---
Author Organization [facility] Address [address] [place] [address] Care Team Providers Care Gasateria Attendant Name Role Phone Unavailable Primary Care Provider Unavailabl e Encounter Details Date Type Department Care Team (Late st Contact Info) Description 06/17/2024 External Device Data STL ABSTRACTION Provider, Abstract [...] 09/16/2024 9:30 AM CDT Office Visit [facility] [address] [place] [address] Jorge Su, [address] [place] [address] documented as of this encounter Visit Diagnoses Not on filedocumented in this encounter
--- OUTSIDE RECORDS SUMMARY | 2024-06-18 07:28 | XMS_ITS ---
Author Organization [facility] [address] Address [address] [place] [address] Care Team Providers Care Uniform Attendant Name Role Phone Arnold Fernández MD Primary Care Prov ider Active Problems Problem Noted Date Diagnosed Date Stage 3a chronic kidney disease 02/10/2024 History of total knee arthroplasty 02/10/2024 Effusion of right knee 02/10/2024 CUEVAS (dyspnea on exertion) 02/05/2018 Aortic valve stenosis 02/05/2018 Overview (02/05/2018): Added automatically from request for surgery [id number] Hemorrhoids 09/11/2017 Prostate cancer 09/11/2017 Double vision 06/06/2017 Blurry vision 06/06/2017 Chronic anticoagulation 06/06/2017 Nonrheumatic aortic valve stenosis 06/06/2017 Abdominal aortic aneurysm (AAA) without rupture 06/06/2017 Assessment & Plan (05/02/2023 10:22 AM SOYBEAN SPECIALTIES COOK): 3.1 cm infrarenal abdominal aortic aneurysms, discussed finding with the patient with the recommendation for intervention at 5.5 cm or with rapid growth. Recommend risk factor modification with ASA, statin therapy in good blood pressure control. Discussed the importance of ongoing surveillance with repeat aortoiliac duplex in 1 year. Dizziness 06/06/2017 Hyperlipidemia LDL goal <70 06/06/2017 Assessment & Plan (05/02/2023 10:22 AM SOYBEAN SPECIALT[employer] COOK): Stable continue Crestor 10 mg. History of [...] 2014 Assessment & Plan (05/02/2023 10:21 AM SOYBEAN SPECIALTIES COOK): Stable continue Eliquis 5 mg. Cephalalgia 05/30/2013 Small cell carcinoma of lung 05/29/2013 Chronic obstructive pulmonary disease Current Oncology Plans No current plan information found. Past Plans No past plan information found. Radiation Treatments * No radiation treatments are documented for this patient in [facility]. Treatments may have been administered in another system. Lifetime Dose Tracking * Chemical Lifetime Dose Automatic Entry Manual Entr y Air kerma at the reference point (Ka,r) 312 mGy 0 mGy 312 mGy
--- OUTSIDE RECORDS SUMMARY | 2024-06-18 07:28 | XMS_ITS | Clinical Summary ---
Author Organization [facility] [address] Address [address] [place] [address] Care Team Providers Care Corporate Counsel Name Role Phone Arnold Fernández MD Primary [...] (02/05/2018): Added automatically from request for surgery [id number] Hemorrhoids 09/11/2017 Prostate cancer 09/11/2017 Double vision 06/06/2017 Blurry vision 06/06/2017 Chronic anticoagulation 06/06/2017 Nonrheumatic aortic valve stenosis 06/06/2017 Abdominal aortic aneurysm (AAA) without rupture 06/06/2017 Assessment & Plan (05/02/2023 10:22 AM REEL WORKER): 3.1 cm infrarenal abdominal aortic aneurysms, discussed finding with the patient with the recommendation for intervention at 5.5 cm or with rapid growth. Recommend risk factor modification with ASA, statin therapy in good blood pressure control. Discussed the importance of ongoing surveillance with repeat aortoiliac duplex in 1 year. Dizziness 06/06/2017 Hyperlipidemia LDL goal <70 06/06/2017 Assessment & Plan (05/02/2023 10:22 AM REEL WORKER): Stable continue Crestor 10 mg. History of [...] 2014 Assessment & Plan (05/02/2023 10:21 AM REEL WORKER): Stable continue Eliquis 5 mg. Cephalalgia 05/30/2013 Small cell carcinoma of lung 05/29/2013 Chronic obstructive pulmonary disease Encounters Date Type Department Care Team Description 05/28/2024 Telephone [facility] Vascular and Vein Surgery [address] [place] [address] [place] [address] Tila Hawkins MD 05/21/2024 10:00 AM REEL WORKER Ancillary Procedure [facility] Vascular and Vein Surgery at [address] [place] [address] Infrarenal abdominal aortic aneurysm (AAA) without rupture (HCC) 04/24/2024 Telephone [facility] Vascular and Vein Surgery [address] [place] [address] [place] [address] Elena Torrez MA 04/24/2024 Telephone [facility] Vascular and Vein Surgery [address] [place] [address] [place] [phone] Odalys Duarte 04/24/2024 Telephone [facility] Vascular and Vein Surgery [address] [place] [address] [address] [place] [address] Elena Torrez MA 04/24/2024 Orders Only [facility] Vascular and Vein Surgery [address] [place] [address] [place] [address] Tila Hawkins MD Infrarenal abdominal aortic aneurysm [...] on file Legal Sex Male 11:58 PM REEL WORKER Gender Identity Not on file Sexual Orientation [...] history exists Medical Devices Implanted Type Area Skin Specialist Device Identifier Shelf Expiration Date Model / Serial / Lot [employer] [id number] Angio-Seal Vip Bondek-Plus 6fr .035in 70cm Hemostatic Latex Free - [id number] Implanted:Qty: 1 on 02/12/2018 by Tiara Rodriguez MD at [facility] [employer] 10/11/2018 [id number] / / [id number] Procedures Procedure Name Priority Date/Time Associated Diagnosis Comments US DUPLEX SCAN AORTA, IVC ILIAC COMPLETE Schedule Routine, Read Routine (OP Routine) 05/21/2024 10:47 AM REEL WORKER Infrarenal abdominal aortic aneurysm (AAA) without rupture (HCC) from Last 3 Months Results * US Duplex Scan Aorta, IVC Iliac Complete (05/21/2024 10:47 AM REEL WORKER) LV EF % CONS SCIMAGE Anatomical Region Laterality Modality Vascular N/A Ultrasound 05/21/2024 10:0 0 AM REEL WORKER Narrative 05/23/2024 1:19 PM REEL WORKER Vascular & Vein Surgery [address] [place] [address]. [place] [address] Abdominal Aortic Duplex Ultrasound Report Patient Name: DAVIDE THOMSON W : 1940 Study Date: 05/21/2024 10:00:05 AM Gender: M Rate Supervisor: DEVIN Location: [facility] Ref Provider: TILA [...] above. Electronically Signed By: Tila Hawkins MD [facility] 05/23/2024 1:18:34 PM REEL WORKER Procedure Note Tila Hawkins MD - 05/23/2024 Vascular & Vein Surgery [address] [place] [address] Abdominal Aortic Duplex Ultrasound Report Patient Name: DAVIDE THOMSON W : 1940 Study Date: 05/21/2024 10:00:05 AM Gender: M Rate Supervisor: Location: [facility] Ref Provider: TILA HAWKINS [...] Tila Hawkins MD [facility] 05/23/2024 1:18:34 PM REEL WORKER Tila Hawkins MD [facility] PROCEDURES Final Result from Last 3 Months Insurance AETNA MEDICARE [facility] MEDICARE Address: [facility] [id number] [place] [id number] FOR[facility] MEDICARE [facility] MEDICARE Address: [facility] [address] [place] [address] FORMERLY [facility] MEDICARE MEDICARE SOLUTIONS Advance Directives For more information, please contact: [phone] * Full Code (Latest Code Status on File) Date Activated Date Inactivated Comments 02/12/2018 1:31 PM 02/12/2018 5:35 PM * Full Code Date Activated Date Inactivated Comments 10/12/2017 2:15 PM 10/13/2017 5:10 PM Care Teams Corporate Counsel Relationship Specialty Start Date End Date Arnold Fernández MD [address] [place] [address] PCP - General Family Medicine 02/10/24
--- OUTSIDE RECORDS SUMMARY | 2024-06-18 07:28 | XMS_ITS | CONTINUITY OF CARE DOCUMENT ---
Author Name indigo sood Address Unknown Organization [facility] Address [address] [facility] [address] [place] [address] Phone [phone] Care Team Providers Care Manager Video Name Role Phone Hari TORRES, Morro Unavailable EVAN GARCIA MD Unavailable [phone] EVAN GARCIA MD Unavailable [phone] PROBLEMS Condition Status Date Provider Notes SVT, paroxysmal active Wili Zaragoza COPD active Wili Ortegai Dizziness active Wili Zaragoza Shortness of breath--nl stre ss nuc 03/2022 active Wili Zaragoza Aortic stenosis--mild ech o 02/2024 active Wili Zaragoza AAA completed - Morro Noriega MD Tobacco abuse--quit active Morro Noriega MD Atrial fibrillation, persistent completed - Morro Noriega MD Hx of lung cancer 2014, uppe r R lobectomy active Wili Zaragoza Hx of TIA active Morro Norigea MD CAD--mild CAD, cath 03/2023--stress PET fixed defects, 04/2024 active Wili Zaragoza Chest discomfort completed - Morro Noriega MD Cardiology examination active Wili Zaragoza Weakness active Wili Zaragoza Near syncope active Wili Zaragoza Bladder cancer s/p resection of mass active Wili Vázquezpranav ENCOUNTERS Date Type Provider Location Encounter Diag nosis - In-person encounter Office Visit Morro Noriega MD [place] CAD--mild CAD, cath 03/2023--stress PET fixed defects, ladder cancer s/p resection of mass - In-person encounter Office Visit Morro Noriega MD [facility] Aortic stenosis--mild echo 02/2024Hx of lung cancer 2013, upper R lobectomyCAD--mild CAD, cath 03/2023--stress PET fixed defects, ardiology examinationWeaknessNear syncope - In-person encounter Office Visit Morro Noriega MD [facility] Aortic stenosis--mild echo 02/2024 - In-person encounter Office Visit Morro Noriega MD [facility] Chest discomfort - In-person encounter Office Visit Morro Noriega MD [facility] Aortic stenosis--mild echo AD--mild CAD, cath 03/2023--stress PET fixed defects, 04/2024 - In-person encounter Office Visit Morro Noriega MD [facility] Shortness of breath--nl stress nuc 03/2022 - In-person encounter Office Visit Morro Noriega MD [facility] Aortic stenosis--mild echo AATobacco abuse--quitAtrial fibrillation, persistentHx of lung cancer 2013, upper R lobectomyHx of TIACAD--mild CAD, cath 03/2023--stress PET fixed defects, 04/2024 VITAL SIGNS Date Observation Value Provider Body Mass Index (Ratio) 25.01 kg/m2 Ramiro Noriega MD oxygen saturation, oximetry 98 % [facility] pulse [facility] 87 /min Renée Alvarez lder [...] ramires Romero blood pressure, cuff size regular [facility] Romero oxygen saturation, oximetry 98 % [facility] Romero pulse rate 88 /min [facility] Romero weight E&M 162.8 [lb_av] [facility] height E&M 66 [in_i] [facility] Romero Body Mass Index (Ratio) [...] Low Absolute Neutrophil count 2452 cells/mcL [employer] [id number] Normal mean platelet volume 10.2 fL [employer] [...] tablet by mouth once daily 3 Hope Bender diltiazem HCl (Cardizem CD) 120 mg capsule,extended release 24hr active TAKE 1 TABLET BY MOUTH EVERY DAY 6 Wili Martinezruy rosuvastatin 10 mg tablet completed 0 Wili Zaragoza valsartan 40 mg tablet completed Take 1 tablet by mouth once daily 1 - 6 Wili Martinezruy valsartan 40 mg tablet completed TAKE 1 TABLET BY MOUTH EVERY DAY - 1 Micheline Tabares 100-62.5-25 mcg blister with device active Wili Zaragoza rosuvastatin 10 mg tablet completed - 0 Wili Zaragoza Eliquis 5 mg tablet active Wili Zaragoza furosemide 20 mg tablet completed as needed - 6 Wili Zaragoza tamsulosin 0.4 mg capsule active Wili Zaragoza carvedilol 3.125 mg tablet completed - 1 Wili Zaragoza spironolactone 25 mg tablet completed - 0 Wili Zaragoza amlodipine 5 mg tablet completed - 1 [...] Payer name Policy type / Coverage type Oracle red green party ID AETNA MEDICARE [place] PPO Medicare [id number] ADVANCE DIRECTIVES Name Date DISCUSSED - NO DECISION MADE TREATMENT PLAN Date Name Performer [id number],SMorro MD [id number],Morro Jasmine MD [id number],Morro Singh MD [id number],Morro Jasmine MD [id number],WMorro MD [id number],SWili i [id number],SWili i [id number],SWili i [id number],SWili i [id number],SWili i [id number],S,n oted to be orthostatic on exam today. We will have him hold his lasix will do labs for further eval. echo and telemonitor planned as well to rule out valvular abnormalities or arrhythmias. will also do carotid duplex, pt will return post testing or sooner if needed. Maureen Stonemiglia [facility] [id number],S,m ild to moderate per cath. will update echo to look for any change in stenosis as pt has increasing CUEVAS. Maureen Stonemiglia [facility] [id number],S,c ath 04/2022 with non obstructive CAD. medical management at this time Maureen Stonemiglia [facility] [id number],W,m ore pronounced with minimal activity. different than pt normal COPD sx. will update echo and labs to look for underlying source of SOB Maureen Ventimiglia [facility] [id number],S, Wili Ahmedza i [id number],S, Wili Ahmedza i [id number],W, Wili Ahmedza i [id number],S, Wili Ahmedza i [id number],S, Wili Ahmedza i [id number],S, Wili Ahmedza i [id number],S, Wili Ahmedza i [id number],S, Wili Ahmedza i [id number],S, Wili Ahmedza i [id number],S, Wili Ahmedza i [id number],S, Wili Ahmedza i [id number],S, Wili Ahmedza i [id number],S, Wili Ahmedza i [id number],W, Wili Ahmedza i [id number],W, Wili Henriquezmedza i [id number],S, Wili Henriquezmedza i [id number],S, Wili Henriquezmedza i [id number],W, Wili Henriquezmedza i [id number],S, Wili Henriquezmedza i Cardiology Morro Noriega MD Cardiology: H is updated medication list for this problem includes: Trelegy Ellipta 100-62.5-25 Mcg Blister With Device (Fyjsiptbltz-pscfcqasa-ihxpbnrk) Morro Noriega MD Cardiology: H is updated [...] Trelegy Ellipta 100-62.5-25 Mcg Blister With Device (Mplhbrswpxb-igggkwddx-ytkgskfy) Wili Zaragoza Telehealth Wili Zaragoza Telehealth: T he following medications were removed from the medication list: Valsartan 40 Mg Tablet (Valsartan) ..... Take 1 tablet by mouth once daily His updated medication list for this problem includes: Diltiazem Hcl (cardizem Cd) 120 Mg Capsule,extended Release 24hr (Diltiazem hcl (cardizem cd)) ..... Take 1 tablet by mouth every day Orders: S tress Cardiac PET-CT (50293) m yocardial blood flow (PET) (60064) [facility] O rders: S tress Cardiac PET-CT (45447) m yocardial blood flow (PET) (09954) [facility]: O rders: S tress Cardiac PET-CT (06348) m yocardial blood flow (PET) (76430) [facility]: O rders: C omplete Echo (24326) [facility]: H is updated medication list for this problem includes: Valsartan 40 Mg Tablet (Valsartan) ..... Take 1 tablet by mouth once daily Orders: C omplete Echo (26748) M onitor - Telemetry (Mobile Cardiac) (CPT-73471) [facility]: H is updated medication list for this problem includes: Trelegy Ellipta 100-62.5-25 Mcg Blister With Device (Ulsipvbobef-yfnbdqpqs-mhaqwojf) [facility]: O rders: M onitor - Telemetry (Mobile Cardiac) (CPT-51160) Wili ruy Cardiology: O rders: M onitor - Telemetry (Mobile Cardiac) (CPT-22116) Wili Zaragoza Telehealth Morro Noriega MD Telehealth [...] testing or sooner if needed. Maureen Ventimiglia [facility] Cardiology:mild to m oderate per cath. will update echo to look for any change in stenosis as pt has increasing CUEVAS. Maureen Ventimiglia [facility] Cardiology:cath 04/14 022 with non obstructive CAD. medical management at this time Maureen Ventimiglia [facility] Cardiology:more pron ounced with minimal activity. different than pt normal COPD sx. will update echo and labs to look for underlying source of SOB Maureen Ventimiglia [facility] Cardiology Wili Ahmedzai Cardiology Wili Ahmedzai Cardiology [...]
--- OUTSIDE RECORDS SUMMARY | 2024-06-18 07:28 | XMS_ITS | Encounter Summary ---
Author Organization [facility] Address [address] [place] [address] Care Team Providers Care Exploration Driller Name Role Phone Endy Garcia MD Primary Care Provider [phone] Angelo Galvan DO Primary Care Provider [phone] Endy Garcia MD Primary Care Provider [phone] Encounter Details Date Type Department Care Team (Late st Contact Info) Description 10/31/2018 Lab Requisition [facility] DermPath Lab [address] [place] [address] Raymond Aguero MD [address] [place] [address] Social History Tobacco Use Types [...] CDT) Case Report Dermatopathology Report ? Case: [id number] ? Authorizing Provider: ??Raymond Aguero MD ?Collected: [...] hip.The specimen consists of an ellipse measuring 95h02l6cl and is oriented with the notch at [...] characteristic determined by the Dermatopathology Laboratory at [facility], directed by Dr. Gris Ramirez. These tests need not be, and therefore are not, approved by the [place] Food and Drug Administration. The tests are used for clinical purposes. Billing Codes Specimen Charges Stain Charges 82806 1 9 2:26 PM CDT DERMATOPATHOLOGY LABORATORY Embedded Images 9 2:26 PM CDT DERMATOPATHOLOGY LABORATORY Pathology/Cytolog y TISSUE SPECIMEN FROM SKIN / Unknown 10/30/2018 10/31/2018 1:21 PM CDT Raymond Aguero MD LAB - PATHOLOGY/CYTO LOGY ORDERABLES DERMATOPATHOLOGY LABORATORY [facility] - Department of Dermatology [address] [place] [address], 5th Floor Lab [address] [phone] documented in this encounter Visit Diagnoses Not on filedocumented in this encounter Care Teams Exploration Driller Relationship Specialty Start Date End Date Endy Garcia MD [address] [facility] [address] [place] [address] PCP - General 10/31/18 01/24/20 Angelo Galvan DO [address] [place] [address] PCP - General Internal Medicine 01/25/20 03/21/20 Endy Garcia MD [address] [place] [address] PCP - General 03/22/20 documented as of this encounter
--- OUTSIDE RECORDS SUMMARY | 2024-06-18 07:28 | XMS_ITS | Clinical Summary ---
Author Organization [id number] Address [address] [place] [address] Care Team Providers Care Home School Teacher Name Role Phone Endy Garcia MD Primary Care Provider [phone] Source Comments [facility],non-[facility] Affiliates and Associated Physician Practices is amultiple site organization consisting of ambulatory clinics and hospital sitesin [place], [place] and [place]. This disclosure is being madepursuant to the Care Everywhere program and may not contain all information available regarding this patient. Last updated 18.[id number] Immunizations Name Administration Dates Next Due INFLUENZA [...] age to complete this topic Care Teams Home School Teacher Relationship Specialty Start Date End Date Endy Garcia MD [address] [place] [address] PCP - General 03/22/20
--- OUTSIDE RECORDS SUMMARY | 2024-06-18 07:28 | XMS_ITS | Referral Summary ---
Author Organization [facility] Address [address] [place] [address] Care Team Providers Care Toy Painter Name Role Phone Endy Garcia MD Primary Care Provider [phone] Source Comments [facility]non[facility] Affiliates and Associated Physician Practices is amultiple site organization consisting of ambulatory clinics and hospital sitesin [place], [place], [place] and [place]. This disclosure is being madepursuant to the Care Everywhere program and may not contain all information available regarding this patient. Last updated 18.[facility] Immunizations Name Administration Dates Next Due INFLUENZA VACCINE, HIGH-DOSE , QUADR. (FLUZONE HIGH-DOSE QUADRIVALENT; 65Y+), 0.7 ML (HD-IIV4) 01/25/2020 Social History Tobacco Use Types Packs/Day Years Used Date Smoking Tobacco: Never Assessed Sex and Gender Information Value Date Recorded Sex Assigned at Not on file Gender Identity Not on file Sexual Orientation Not on file Plan of Treatment Not on file Care Teams Toy Painter Relationship Specialty Start Date End Date Endy Garcia MD [address] [facility] [address] [place] [address] PCP - General 03/22/20
--- OUTSIDE RECORDS SUMMARY | 2024-06-18 07:28 | XMS_ITS ---
Author Organization [facility] Address [address] [place] [address] Phone Care Team Providers Care Office Engineer Name Role Phone Unavailable Primary Care Provider Unavailabl e Active Problems Problem Noted Date Diagnosed Date Chronic obstructive pulmonary disease 02/29/2024 Pyogenic arthritis of right knee joint 4 S/P total knee arthroplasty, right 02/10/2024 Paroxysmal atrial fibrillation 02/10/2024 Primary hypertension 02/10/2024 Stage 3a chronic kidney disease 02/10/2024 Prostate cancer 09/11/2017 Nonrheumatic aortic valve stenosis 06/06/2017 Overview (02/29/2024): Added automatically from request for surgery [id number] Hyperlipidemia LDL goal <70 06/06/2017 History of [...]
--- OUTSIDE RECORDS SUMMARY | 2024-06-18 07:28 | XMS_ITS | Encounter Summary ---
Author Organization [facility] Address [address] [place] [address] Care Team Providers Care Cosmetic Maker Name Role Phone Endy Garcia MD Primary Care Provider [phone] Endy Garcia MD Primary Care Provider [phone] Angelo Galvan DO Primary Care Provider [phone] Arnold Fernández MD Primary Care Prov ider Encounter Details Date Type Department Care Team (Late st Contact Info) Description 05/23/2016 Orders Only [facility] ProviderZahraa MD [address] [place] [address] Social History Tobacco Use Types Packs/Day Years Used Date Smoking Tobacco: Former Cigarettes Q uit: 05/14/2012 Alcohol Use Standard Drinks/Week Comments No 0 (1 standard drink = 0.6 oz pur e alcohol) Sex and Gender Information Value Date Recorded Sex Assigned at Not on file Legal Sex Male 11:58 PM PHARMACY BUYER Gender Identity Not on file Sexual Orientation [...] documented as of this encounter Care Teams Cosmetic Maker Relationship Specialty Start Date End Date Endy Garcia MD PCP - General 08/11/16 08/30/17 Endy Garcia MD PCP - General 06/11/13 08/10/16 Angelo Galvan DO PCP - General Internal Medicine 08/31/17 02/09/24 Arnold Fernández MD [address] [place] [address] PCP - General Family Medicine 02/10/24 documented as of this encounter
--- OUTSIDE RECORDS SUMMARY | 2024-06-18 07:28 | XMS_ITS | Continuity of Care Document ---
Author Organization [facility] Address [address] [place] [address] Phone Care Team Providers Care Supervisor Mattress And Boxsprings Name Role Phone Ed Flores Unavailable Unavailable [...] Diagnoses Date Provider Providers Copied on Encounter [facility], [address], [place], [place], [address], [place] tel:[phone] [facility] No Information Hebert-0 8-201 0 Doisy Edjunie. [address] , [address], [place], [address], [place]. tel:[phone] [facility], [address], [place], [place], [address], [place] tel:[phone] [facility] No Information Apr-0 9-200 9 Das OD Layo. [address] , [address], [place], [place], [facility], [place]. tel:[phone] [facility], [address], [place], [place], [address], [place] tel:[phone] [facility] No Information Mar-2 5-200 9 Doisy Edjunie. [address] , [address], [place], [place], [facility], [place]. tel:[phone] [facility], [address], [place], [place], [address], [place] tel:[phone] [facility] No Information Mar-2 4-200 9 Doisy Edjunie. [address] , [address], [place], [facility], [place]. tel:[phone] [facility], [address], [place], [place], [address], [place] tel:[phone] [facility] No Information Mar-1 8-200 9 Doisy Edjunie. [address] , [address], [place], [address], [place]. tel:[phone] Referring Provider: Ed Pérez, [facility] [address], [place], [place], [facility]. tel:[phone] [facility], [address], [place], [place], [address], [place] tel:[phone] [facility] No Information Mar-0 4-200 9 Mark Ward. [address] , [address], [place], [address], [place]. tel:[phone] [facility], [address] [place] [address] [address], [place], [place], [address], [place] tel:[phone] [facility] No Information Mar-0 3-200 9 Mark Ward. [address] , [address], [place], [facility], [place]. tel:[phone] Office/outpat ient Visit, [facility], [address] [place] [address] [address], [place], [place], [address], [place] tel:[phone] [facility] No Information Feb-2 3-200 9 Mark Ward. [address] , [address], [place], [facility], [place]. tel:[phone] Referring Provider: Ed Pérez, [address] [place], [place] [address]ate Center [address], [place], [place], [facility]. tel:[phone] Office/outpat ient Visit, [facility], [address] [place] [address] [address], [place], [place], [address], [place] tel:[phone] [facility] No Information Nov-1 0-200 8 Mark Ward. [address] , [address], [place], [facility], [place]. tel:[phone] [facility], [address] [place] [address] [address], [place], [place], [address], [place] tel:[phone] [facility] No Information Oct-2 4-200 8 Das OD Layo. [address] , [address], [place], [facility], [place]. tel:[phone] Office/outpat ient Visit, [facility], [address] [place] [address] [address], [place], [place], [address], [place] tel:[phone] [facility] No Information Sep-2 7-200 7 Das OD Layo. [address] [facility] , [address], [place], [facility], . tel:[phone] Office/outpat ient Visit, [facility], [address] [place] [address] [address], [place], [place], [address], [place] tel:[phone] [facility] No Information Sep-2 5-200 7 Das OD Layo. [address] [facility] [address] [facility] , [address], [place], [address], . tel:[phone] Office/outpat ient Visit, [facility], [address] [place] [address] [address], [place], [place], [address], tel:[phone] [facility] No Information Nov-1 1-200 7 Das OD Layo. [address] [facility] [address] [facility], [address], [place], [address], . tel:[phone] [facility], [address] [place] [address] [address], [place], [place], [address], tel:[phone] [facility] No Information Mitchell-2 7-200 7 Das OD Layo. [address] , [address], [place], [facility], [place]. tel:[phone] Family History Family Member Type Diagnosis Age At Onset No Information Payers Payer name Insurance type Covered green party ID Authoriza tishira(s) [place] [id number] [facility] [id number] Social History Type Description Quantity Date Captured [...]
--- OUTSIDE RECORDS SUMMARY | 2024-06-18 07:28 | XMS_ITS | Clinical Summary ---
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 Encounters Date Type Department Care Team Description 06/17/2024 External Device Data [facility] ABSTRACTION Provider, Abstract 06/10/2024 External Device Data [facility] ABSTRACTION Provider, Abstract 06/04/2024 External Device Data [facility] ABSTRACTION Provider, Abstract 06/04/2024 External Device Data [facility] ABSTRACTION Provider, Abstract 05/20/2024 10:00 AM EXECUTIVE COMMUNICATIONS MANAGER Video Visit [facility] INFECT[facility] DISEASE DARRINGTONER B [address] [facility] [address] [place] [phone] Jorge Su, 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) 04/04/2024 Abstract [facility] INFECT[facility]OUS DISEASE TOWER B [address] [place] [address] Jorge uS DO 03/24/2024 Abstract [facility] INFECT[facility] DISEASE TOWER B [address] [place] [address] Jorge Su DO 03/18/2024 10:30 AM EXECUTIVE COMMUNICATIONS MANAGER Office Visit [facility] INFECTIOUS DISEASE DARRINGTONER B [address] [place] [address] Jorge Su DO 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); S/P total knee arthroplasty, right 03/18/2024 Abstract [facility] INFECTIOUS DISEASE TOWER B [address] [place] [phone] Jorge Su DO from Last 3 Months Immunizations Immunization Administration Dates Next Due INFLUENZA VACCINE HIGH DOSE QUADRIVALENT 65 YR UP PF IM 02/26/2021,01/25/2020 Influenza Vaccine High Dose 65+ Yrs IM 0,02/24/2018 Influenza, Unspecified Formulation 04/17/2017,,03/03/2015 Zoster Vaccine Live SQ 04/17/2017 Family History Medical History Relation Name Comments Heart Disease Father Relation Name Status Comments Father Social History Tobacco Use Types Packs/Day Years Used Date Smoking Tobacco: Former Cigarettes 2 014 - 1954 Smokeless Tobacco: Never Tobacco Cessation:Counseling [...] Comments Blood Pressure 146/72 03/18/2024 10:38 AM EXECUTIVE COMMUNICATIONS MANAGER Pulse 89 03/18/2024 10:38 AM EXECUTIVE COMMUNICATIONS MANAGER Temperature 37 ??C (98.6 ??F) 03/18/2024 10:38 AM EXECUTIVE COMMUNICATIONS MANAGER Respiratory Rate 20 02/29/2024 12:36 PM CDT Oxygen Saturation 100% 02/29/2024 12:36 PM CDT Inhaled Oxygen Concentration - - Weight 73.5 kg (162 lb) 03/18/2024 10:38 AM EXECUTIVE COMMUNICATIONS MANAGER Height 167.6 cm (5' 6 ) 03/18/2024 10:38 AM EXECUTIVE COMMUNICATIONS MANAGER Body Mass Index 26.15 03/18/2024 10:38 AM EXECUTIVE COMMUNICATIONS MANAGER Plan of Treatment Upcoming Encounters Date Type Department Care Team (Late st Contact Info) Description 09/16/2024 9:30 AM CDT Office Visit [facility]FECT[facility] DISEASE TOWER B [address] [facility] [address] [place] [address] Jorge Su, [address] [facility] [address] [place] [address] Health Maintenance Due Date Last Done Comments DTAP/TDAP/TD VACCINES (1 - Tdap) 1959 PNEUMOCOCCAL VACCINE 65+ YEA RS (1 of 2 - PCV) 1957 RSV VACCINE (60+ or ) (1 - 1-dose 75+ series) 2013 ZOSTER VACCINE (2 of 3) 06/12/2017 04/17/2017 INFLUENZA VACCINE (#1) 2023 , 01/25/2020, 01/25/2020, Additional history exists Medical Devices Implanted Type Area Chargemaster Analyst Device Identifier Shelf Expiration Date Model / Serial / Lot 1 Gm Surgical Powder Activated Collagen Implanted:Qty: 1 on 02/28/2024 by Ky Deng MD at [facility] Right: Knee [facility] WCI-01-SAC RXP / / Description:1X ADD LG Loop Recorder Right Total Knee Insurance AETNA O [facility] RX AETNA Medicare Part D Advance Directives For more information, please contact: [phone] * Full Code (Latest Code Status on File) Date Activated Date Inactivated Comments 02/28/2024 12:42 PM 02/29/2024 4:41 PM * Full Code Date Activated Date Inactivated Comments 02/28/2024 5:58 AM 02/28/2024 12:42 PM * Full Code Date Activated Date Inactivated Comments 02/10/2024 10:39 PM 02/15/2024 6:51 PM
--- OUTSIDE RECORDS SUMMARY | 2024-06-18 07:28 | XMS_ITS | Referral Summary ---
Author Organization [facility] [address] Address [address] [place] [address] Care Team Providers Care Shovel Log Loader Operator Name Role Phone Arnold Fernández MD Primary Care Prov ider Encounters Date Type Department Care Team Description 05/28/2024 Telephone [facility] Vascular and Vein Surgery [address] [place] [phone] Tila Hawkins MD 05/21/2024 10:00 AM FABRIC WORKER LEADER Ancillary Procedure [facility] Vascular and Vein Surgery at [address] [place] [phone] Infrarenal abdominal aortic aneurysm (AAA) without rupture (HCC) 04/24/2024 Telephone [facility] Vascular and Vein Surgery [address] [address] [place] [address] Elena Torrez MA 04/24/2024 Telephone [facility] Vascular and Vein Surgery [address] [address] [place] [phone] Odalys Duarte 04/24/2024 Telephone [facility] Vascular and Vein Surgery [address] [place] [address] Elena Torrez MA 04/24/2024 Orders Only [facility] Vascular and Vein Surgery [address] [place] [address] Tila Hawkins MD Infrarenal abdominal aortic aneurysm [...] (02/05/2018): Added automatically from request for surgery [id number] Hemorrhoids 09/11/2017 Prostate cancer 09/11/2017 Double vision 06/06/2017 Blurry vision 06/06/2017 Chronic anticoagulation 06/06/2017 Nonrheumatic aortic valve stenosis 06/06/2017 Abdominal aortic aneurysm (AAA) without rupture 06/06/2017 Assessment & Plan (05/02/2023 10:22 AM FABRIC WORKER LEADER): 3.1 cm infrarenal abdominal aortic aneurysms, discussed finding with the patient with the recommendation for intervention at 5.5 cm or with rapid growth. Recommend risk factor modification with ASA, statin therapy in good blood pressure control. Discussed the importance of ongoing surveillance with repeat aortoiliac duplex in 1 year. Dizziness 06/06/2017 Hyperlipidemia LDL goal <70 06/06/2017 Assessment & Plan (05/02/2023 10:22 AM FABRIC WORKER LEADER): Stable continue Crestor 10 mg. History of [...] 2014 Assessment & Plan (05/02/2023 10:21 AM FABRIC WORKER LEADER): Stable continue Eliquis 5 mg. Cephalalgia 05/30/2013 [...] on file Legal Sex Male 11:58 PM FABRIC WORKER LEADER Gender Identity Not on file Sexual Orientation [...] on file Medical Devices Implanted Type Area Radiological Technician Device Identifier Shelf Expiration Date Model / Serial / Lot [employer] [id number] Angio-Seal Vip Bondek-Plus 6fr .035in 70cm Hemostatic Latex Free - [id number] Implanted:Qty: 1 on 02/12/2018 by Tiara Rodriguez MD at [facility] [employer] 10/11/2018 [id number] / / [id number] Procedures Procedure Name Priority Date/Time Associated Diagnosis Comments US DUPLEX SCAN AORTA, IVC ILIAC COMPLETE Schedule Routine, Read Routine (OP Routine) 05/21/2024 10:47 AM FABRIC WORKER LEADER Infrarenal abdominal aortic aneurysm (AAA) without rupture (HCC) from Last 3 Months Results * US Duplex Scan Aorta, IVC Iliac Complete (05/21/2024 10:47 AM FABRIC WORKER LEADER) LV EF % CONS SCIMAGE Anatomical Region Laterality Modality Vascular N/A Ultrasound 05/21/2024 10:0 0 AM FABRIC WORKER LEADER Narrative 05/23/2024 1:19 PM FABRIC WORKER LEADER Vascular & Vein Surgery [facility] [place] [address] Abdominal Aortic Duplex Ultrasound Report Patient Name: DAVIDE THOMSON W : 1940 Study Date: 05/21/2024 10:00:05 AM Gender: M Drill Sharpener: Location: [facility] Ref Provider: TILA HAWKINS ?Quality: [...] Tila Hawkins MD Thea 05/23/2024 1:18:34 PM FABRIC WORKER LEADER Procedure Note Tila Hawkins MD - 05/23/2024 Vascular & Vein Surgery [address] [facility] [place] [address] Abdominal Aortic Duplex Ultrasound Report Patient Name: DAVIDE THOMSON W : 1940 Study Date: 05/21/2024 10:00:05 AM Gender: M Drill Sharpener: Location: [facility] Ref Provider: TILA HAWKINS Quality: Adequate Order Provider: TILA HAWKINS PROCEDURES: Arterial Report: Duplex ultrasound imaging of the abdominal aorta. INDICATIONS: Follow up AAA and I71.43 Infrarenal abdominal aortic aneurysm, withoutrupture. HISTORY: Hypertension. Hyperlipidemia. Afib. COPD. Prostate/lung CA. Formersmoker. COMPARISONS: Prior CTA @ [place] 02/16/23. MEASUREMENTS: Velocities Value DiametersValue Aorta Prx [...] above. Electronically Signed By: Tila Hawkins MD [facility] 05/23/2024 1:18:34 PM FABRIC WORKER LEADER Tila Hawkins MD [facility] PROCEDURES Final Result from Last 3 Months Insurance AETNA MEDICARE [facility] MEDICARE [facility] MEDICARE MEDICARE SOLUTIONS Advance Directives For more information, please contact: [phone] * Full Code (Latest Code Status on File) Date Activated Date Inactivated Comments 02/12/2018 1:31 PM 02/12/2018 5:35 PM * Full Code Date Activated Date Inactivated Comments 10/12/2017 2:15 PM 10/13/2017 5:10 PM Care Teams Shovel Log Loader Operator Relationship Specialty Start Date End Date Arnold Fernández MD [address] [place] [address] PCP - General Family Medicine 02/10/24
--- OUTSIDE RECORDS SUMMARY | 2024-06-18 07:28 | XMS_ITS | Encounter Summary ---
Author Organization [facility] Address [address] [place] [address] Phone Care Team Providers Care Meters Superintendent Name Role Phone Angelo Galvan DO Primary Care Provider [phone] Arnold Fernández MD Primary Care Prov ider [...] on file Legal Sex Male 11:58 PM CUSTOMER SUPPLY CHAIN ANALYST Gender Identity Not on file Sexual Orientation [...] documented as of this encounter Care Teams Meters Superintendent Relationship Specialty Start Date End Date Angelo Galvan DO PCP - General Internal Medicine 08/31/17 02/09/24 Arnold Fernández MD [address] [place] [address] PCP - General Family Medicine 02/10/24 documented as of this encounter
--- OUTSIDE RECORDS SUMMARY | 2024-06-18 07:28 | XMS_ITS | Patient Health Summary ---
Author Organization [facility] Address [address] [place] [address] Care Team Providers Care Children'S Lunchroom Supervisor Name Role Phone Endy Garcia MD Primary Care Provider [phone] Note from [facility],non-owned Affiliates and Associated Physician Practices is amultiple site organization consisting of ambulatory clinics and hospital sitesin [place], [place], [place] and [place]. This disclosure is being madepursuant to the Care Everywhere program and may not contain all information available regarding this patient. Last updated 18.[facility] Immunizations * INFLUENZA VACCINE, HIGH-DOSE, QUADR. [...] included. Case Report Dermatopathology Report ? Case: [id number] ? Authorizing Provider: ??Raymond Aguero MD ?Collected: [...] of midline. The specimen consists of a [id number] excision, bisected. Jar 0. 3:44 PM CDT [...] characteristic determined by the Dermatopathology Laboratory at [facility], directed by Dr. Gris Ramirez. These tests need not be, and therefore are not, approved by the [place] Food and Drug Administration. The tests are used for clinical purposes. Billing Codes Specimen Charges Stain Charges 09549 1 9 3:44 PM CDT DERMATOPATHOLOGY LABORATORY Embedded Images 9 3:44 PM CDT DERMATOPATHOLOGY LABORATORY Pathology/Cytolog y TISSUE SPECIMEN FROM SKIN / Unknown 11/27/2018 11/28/2018 11:37 AM CDT Raymond Aguero MD LAB - PATHOLOGY/CYTO LOGY ORDERABLES DERMATOPATHOLOGY LABORATORY [facility] - Department of Dermatology [address] [facility], 5th Floor Lab [address] [phone] Care Teams Children'S Lunchroom Supervisor Relationship Specialty Start Date End Date Endy Garcia MD [address] [facility] [address] [place] [address] PCP - General 03/22/20
[2024-06-18 08:14] LABS: Alanine Aminotransferase 17 U/L (6-50); Alkaline Phosphatase 80 U/L (38-126); Anion Gap 8 mmol/L (4-12); Aspartate Amino Transferase 21 U/L (17-59); Bilirubin,Total 0.4 mg/dL (0.2-1.3); Blood Urea Nitrogen 25 mg/dL (9-20); Calcium 9.6 mg/dL (8.4-10.2); Carbon Dioxide 28 mmol/L (22-30); Chloride 100 mmol/L (98-107); Cholesterol 134 mg/dL (0-200); Estimated Glomerular Filt Rate 56; Glucose 225 mg/dL (65-110); HDL Direct 86 mg/dL; Potassium 4.4 mmol/L (3.4-5.0); Sodium 136 mmol/L (137-145); Triglycerides 58 mg/dL (<150)
[2024-06-18 08:24] LABS: LDL Cholesterol Direct 36 mg/dL
[2024-06-18 08:44] LABS: Cortisol Baseline 1.59 ug/dL; Thyroid Stimulating Hormone 0.716 uIU/mL (0.465-4.680)
[2024-06-18 09:40] LABS: Parathyroid Intact 123.9 pg/mL (14.5-75.2)
[2024-06-18 09:54] LABS: Hemoglobin A1C 7.1 % (<5.7)
[2024-06-18 10:16] LABS: Creatinine Urine 76.1 mg/dL
[2024-06-18 10:21] LABS: MALB Creatinine Ratio 30.2 mg/g (0-30)
[2024-06-19 10:22] LABS: Ionized Calcium 5.1 mg/dL (4.7-5.5)
== END 2024-06-18 07:26 | disposition home or self-care (01) ==
LOC: ANHLAB 07:25
PROVIDERS: PCP Family Medicine Adolescent Medicine; Visit Provider Internal Medicine
DX: E83.52 Hypercalcemia (principal); N25.81 Secondary hyperparathyroidism of renal origin; E27.8 Other specified disorders of adrenal gland; M81.0 Age-related osteoporosis without current pathological fracture; E04.2 Nontoxic multinodular goiter; E11.9 Type 2 diabetes mellitus without complications; E78.00 Pure hypercholesterolemia, unspecified
CPT/HCPCS: 36415; 80053; 80061; 82043; 82088; 82306; 82308; 82330; 82533; 83036; 83835; 83970; 84244; 84439; 84443

== ENCOUNTER 2024-06-23 09:06 | Outpatient (CLI) | payer MEDICARE, SELFPAY ==
--- NOTE | ~2024-06-23 | DEXA_ITS ---
Bone Density Report Name: DAVIDE THOMSON Age: 83 Sex: Male Ethnicity: White Date of : 1940 Indication: hyperparathyroidism; Referring Provider: JAMI WADE Study: Bone densitometry was performed. Exam Date: June 23, 2024 Accession number: [id number] Bone Density: Region BMD T-score Z-score Classification AP Spine(L2, L3, L4) 0.931 -1.7 -0.3 Osteopenia Femoral Neck (Left) 0.683 -1.8 -0.1 Osteopenia Total Hip (Left) 0.893 -0.9 0.3 Normal Femoral Neck (Right) 0.628 -2.2 -0.5 Osteopenia Total Hip (Right) 0.837 -1.3 0.0 Osteopenia Femoral Neck Mean 0.656 -2.0 -0.3 Osteopenia Total Hip Mean 0.865 -1.1 0.2 Osteopenia World Health Organization criteria for BMD impression classify patients as: Normal (T-score at or above -1.0), Osteopenia (T-score between -1.0 and -2.5), or Osteoporosis (T-score at or below -2.5). 10-year Fracture Risk: FRAX not reported because: Treated for osteoporosis Clinical Information Provided by Patient: Is being treated for osteoporosis Has used the following medications: Prolia (i.e. denosumab), Vitamin D Has the following medical conditions: Hyperparathyroidism Patient maximum height was 67 No regular weight bearing exercise Drinks caffeinated beverages Impression: The patient has low bone mass, based on the Right Femoral Neck T-score. Discussion: It is important to ask patients whether they are taking their medications and to encourage continued and appropriate compliance with their osteoporosis therapies to reduce fracture risk. It is also important to review their risk factors and encourage appropriate calcium and vitamin D intakes, exercise, fall prevention and other lifestyle measures. Follow-Up: Consider repeating this study in 2 years to reassess this patient's status, or sooner if there is some new clinical indication. Reported by: CHIARA on 06/23/2024 9:39:00 AM. Reviewed, dictated and finalized at location A.
--- OUTSIDE RECORDS SUMMARY | 2024-06-23 09:31 | XMS_ITS | Encounter Summary ---
Author Organization [facility] Address [address] [place] [address] Care Team Providers Care Building Guard Deputy Sheriff Name Role Phone Endy Garcia MD Primary Care Provider [phone] Angelo Galvan DO Primary Care Provider [phone] Endy Garcia MD Primary Care Provider [phone] Encounter Details Date Type Department Care Team (Late st Contact Info) Description 10/31/2018 Lab Requisition [facility] DermPath Lab [address] [place] [phone] [place] [address] Social History Tobacco Use Types [...] 12:00 AM CDT) Case Report Dermatopathology Report Case: [id number] Authorizing Provider: Raymond Aguero MD Collected: 10/30/2018 12:00 AM Pathologist: Davy Ramirez MD Received: 10/31/2018 01:21 PM Specimen: Skin, left lat superior hip 2:26 PM T DERMATOPATHOLOGY LABORATORY Final Diagnosis Specimen A. SKIN, left lat superior hip: EPIDERMOID CYST WITH EVIDENCE OF RUPTURE (L72.0) 2:26 PM [facility] DERMATOPATHOLOGY LABORATORY Clinical History R/O inflammed & ruptured EIC. 2:26 PM T DERMATOPATHOLOGY LABORATORY Gross Description Specimen A: Received is one formalin filled container labeled with the patient's name and designated left lat superior hip.The specimen consists of an ellipse measuring [id number] and is oriented with the notch at [...] and submitted in cassettes 3-4. Jar 0. 2:26 PM [facility] DERMATOPATHOLOGY LABORATORY Microscopic Description Specimen A. SKIN, left lat superior hip: Within the dermis, there is a space lined by epithelium that resembles normal epidermis and the infundibular portion of the hair follicle. Surrounding this is an infiltrate with neutrophils, histiocytes, and multinucleated giant cells. 2:26 PM [facility] DERMATOPATHOLOGY LABORATORY Disclaimer An external and internal positive and negative controls are appropriate for the histochemical, immunohistochemical and immunofluorescence stain(s) in this case (if any), except where stated explicitly. The performance characteristics of the stain(s) cited in this report were developed and its performance characteristic determined by the Dermatopathology Laboratory at [facility], directed by Dr. Gris Ramirez. These tests need not be, and therefore are not, approved by the [place] Food and Drug Administration. The tests are used for clinical purposes. Billing Codes Specimen Charges Stain Charges 18784 1 2:26 PM T DERMATOPATHOLOGY LABORATORY Embedded Images 2:26 PM CDT DERMATOPATHOLOGY LABORATORY Pathology/Cytolog y TISSUE SPECIMEN FROM SKIN / Unknown 10/30/2018 10/31/2018 1:21 PM CDT Raymond Aguero MD LAB - PATHOLOGY/CYTO LOGY ORDERABLES DERMATOPATHOLOGY LABORATORY [facility] - Department of Dermatology [address] [place] [address], 5th Floor Lab [address] [phone] documented in this encounter Visit Diagnoses Not on filedocumented in this encounter Care Teams Building Guard Deputy Sheriff Relationship Specialty Start Date End Date Endy Garcia MD [address] [place] [address] PCP - General 10/31/18 01/24/20 Angelo Galvan DO [address] [place] [address] PCP - General Internal Medicine 01/25/20 03/21/20 Endy Garcia MD [address] [place] [address] PCP - General 03/22/20 documented as of this encounter
--- OUTSIDE RECORDS SUMMARY | 2024-06-23 09:31 | XMS_ITS | Clinical Summary ---
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) 04/04/2024 Abstract [facility] INFECTIOUS DISEASE [address] [facility] [address] [place] [address] Jorge Su DO 03/24/2024 Abstract [facility] INFECTIOUS DISEASE [place] [address] [facility] [address] [place] [address] Jorge Su DO from Last 3 Months [...] Smoking Tobacco: Former Cigarettes 2 014 - 1955 Smokeless Tobacco: Never Tobacco Cessation:Counseling Given: Not [...] Comments Blood Pressure 146/72 03/18/2024 10:38 AM DIRECTOR COMMUNITY HEALTH NURSING Pulse 89 03/18/2024 10:38 AM DIRECTOR COMMUNITY HEALTH NURSING Temperature 37 C (98.6 F) 03/18/2024 10:38 AM DIRECTOR COMMUNITY HEALTH NURSING Respiratory Rate 20 02/29/2024 12:36 PM CDT Oxygen Saturation 100% 02/29/2024 12:36 PM CDT Inhaled Oxygen Concentration - - Weight 73.5 kg (162 lb) 03/18/2024 10:38 AM DIRECTOR COMMUNITY HEALTH NURSING Height 167.6 cm (5' 6 ) 03/18/2024 10:38 AM DIRECTOR COMMUNITY HEALTH NURSING Body Mass Index 26.15 03/18/2024 10:38 AM DIRECTOR COMMUNITY HEALTH NURSING Plan of Treatment Upcoming Encounters Date Type Department Care Team (Late st Contact Info) Description 09/16/2024 9:30 AM CDT Office Visit [facility] INFECTIOUS DISEASE [address] [facility] [address] [place] [address] Jorge Su, [address] [facility] [address] [place] [address] Health Maintenance Due Date Last Done Comments DTAP/TDAP/TD VACCINES (1 - Tdap) 1959 PNEUMOCOCCAL VACCINE 65+ YEA RS (1 of 2 - PCV) 1957 RSV VACCINE (60+ or ) (1 - 1-dose 75+ series) 2013 ZOSTER VACCINE (2 of 3) 06/12/2017 04/17/2017 INFLUENZA VACCINE (#1) 2023 , 01/25/2020, 01/25/2020, Additional history exists Medical Devices Implanted Type Area Dean Of Men Device Identifier Shelf Expiration Date Model / Serial / Lot 1 Gm Surgical Powder Activated Collagen Implanted:Qty: 1 on 02/28/2024 by Ky Deng MD at [facility] Right: Knee [facility] / / Description:1X ADD LG Loop Recorder Right Total Knee Insurance AETNA [facility] RX AETNA Medicare Part D Advance Directives For more information, please contact: [phone] * Full Code (Latest Code Status on File) Date Activated Date Inactivated Comments 02/28/2024 12:42 PM 02/29/2024 4:41 PM * Full Code Date Activated Date Inactivated Comments 02/28/2024 5:58 AM 02/28/2024 12:42 PM * Full Code Date Activated Date Inactivated Comments 02/10/2024 10:39 PM 02/15/2024 6:51 PM
--- OUTSIDE RECORDS SUMMARY | 2024-06-23 09:31 | XMS_ITS | Referral Summary ---
Author Organization [facility] Address [address] [place] [address] Care Team Providers Care Annealing Torch Operator Name Role Phone Endy Garcia MD Primary Care Provider [phone] Source Comments [facility] Affiliates and Associated Physician Practices is amultiple site organization consisting of ambulatory clinics and hospital sitesin [place], [place], [place] and [place]. This disclosure is being madepursuant to the Care Everywhere program and may not contain all information available regarding this patient. Last updated 18.[facility] Immunizations Name Administration Dates Next Due INFLUENZA VACCINE, HIGH-DOSE , QUADR. (FLUZONE HIGH-DOSE QUADRIVALENT; 65Y+), 0.7 ML (HD-IIV4) 01/25/2020 Social History Tobacco Use Types Packs/Day Years Used Date Smoking Tobacco: Never Assessed Sex and Gender Information Value Date Recorded Sex Assigned at Not on file Gender Identity Not on file Sexual Orientation Not on file Plan of Treatment Not on file Care Teams Annealing Torch Operator Relationship Specialty Start Date End Date Endy Garcia MD [address] [facility] [address] [facility] [address] [place] [address] PCP - General 03/22/20
--- OUTSIDE RECORDS SUMMARY | 2024-06-23 09:31 | XMS_ITS | Patient Health Summary ---
Author Organization [facility] Address [address] [place] [address] Care Team Providers Care Model And Pattern Supervisor Name Role Phone Endy Garcia MD Primary Care Provider [phone] Note from [facility],non-owned Affiliates and Associated Physician Practices is amultiple site organization consisting of ambulatory clinics and hospital sitesin [place], [place], [place] and [place]. This disclosure is being madepursuant to the Care Everywhere program and may not contain all information available regarding this patient. Last updated 18.[facility] Immunizations * INFLUENZA VACCINE, HIGH-DOSE, QUADR. (FLUZONE [...] period is included. Case Report Dermatopathology Report Case: [id number] Authorizing Provider: Raymond Aguero MD Collected: 11/27/2018 12:00 AM Pathologist: Davy Ramirez MD Received: 11/28/2018 11:37 AM Specimen: Skin, left superior forehead left of midline 3:44 PM CDT DERMATOPATHOLOGY LABORATORY Final Diagnosis Specimen A. SKIN, left superior forehead left of midline: EPIDERMOID CYST (L72.0) 3:44 PM CDT DERMATOPATHOLOGY LABORATORY Clinical History R/O EIC. 3:44 PM CDT DERMATOPATHOLOGY LABORATORY Gross Description Specimen A: Received is one formalin filled container labeled with the patient's name and designated left superior forehead left of midline. The specimen consists of a [id number] excision, bisected. Jar 0. 3:44 PM CDT [...] characteristic determined by the Dermatopathology Laboratory at [facility], directed by Dr. Gris Ramirez. These tests need not be, and therefore are not, approved by the [place] Food and Drug Administration. The tests are used for clinical purposes. Billing Codes Specimen Charges Stain Charges [id number] 1 3:44 PM CDT DERMATOPATHOLOGY LABORATORY Embedded Images 3:44 PM CDT DERMATOPATHOLOGY LABORATORY Pathology/Cytolog y TISSUE SPECIMEN FROM SKIN / Unknown 11/27/2018 11/28/2018 11:37 AM CDT Raymond Aguero MD LAB - PATHOLOGY/CYTO LOGY ORDERABLES DERMATOPATHOLOGY LABORATORY [facility] - Department of Dermatology [address] [place] [address], 5th Floor Lab [address] [phone] Care Teams Model And Pattern Supervisor Relationship Specialty Start Date End Date Endy Garcia MD [address] [facility] [address] [facility] [address] [place] [phone] PCP - General 03/22/20
--- OUTSIDE RECORDS SUMMARY | 2024-06-23 09:31 | XMS_ITS | Clinical Summary ---
Author Organization [facility] [address] Address [address] [place] [address] Care Team Providers Care Chip Unloader Name Role Phone Arnold Fernández MD Primary [...] (02/05/2018): Added automatically from request for surgery [id number] Hemorrhoids 09/11/2017 Prostate cancer 09/11/2017 Double vision 06/06/2017 Blurry vision 06/06/2017 Chronic anticoagulation 06/06/2017 Nonrheumatic aortic valve stenosis 06/06/2017 Abdominal aortic aneurysm (AAA) without rupture 06/06/2017 Assessment & Plan (05/02/2023 10:22 AM CONCESSION ATTENDANT): 3.1 cm infrarenal abdominal aortic aneurysms, discussed finding with the patient with the recommendation for intervention at 5.5 cm or with rapid growth. Recommend risk factor modification with ASA, statin therapy in good blood pressure control. Discussed the importance of ongoing surveillance with repeat aortoiliac duplex in 1 year. Dizziness 06/06/2017 Hyperlipidemia LDL goal <70 06/06/2017 Assessment & Plan (05/02/2023 10:22 AM CONCESSION ATTENDANT): Stable continue Crestor 10 mg. History of [...] 2014 Assessment & Plan (05/02/2023 10:21 AM CONCESSION ATTENDANT): Stable continue Eliquis 5 mg. Cephalalgia 05/30/2013 Small cell carcinoma of lung 05/29/2013 Chronic obstructive pulmonary disease Encounters Date Type Department Care Team Description 05/28/2024 Telephone [facility] Vascular and Vein Surgery [address] [place] [address] [place] [address] Tila Hawkins MD 05/21/2024 10:00 AM CONCESSION ATTENDANT Ancillary Procedure [facility] Vascular and Vein Surgery at [address] [place] [address] Infrarenal abdominal aortic aneurysm (AAA) without rupture (HCC) 04/24/2024 Telephone [facility] Vascular and Vein Surgery [address] [place] [address] [place] [address] Elena Torrez MA 04/24/2024 Telephone [facility] Vascular and Vein Surgery [address] [place] [address] [place] [address] Odalys Duarte 04/24/2024 Telephone [facility] Vascular and Vein Surgery [address] [place] [address] [address] [place] [address] Elena Torrez MA 04/24/2024 Orders Only [facility] Vascular and Vein Surgery [address] [place] [address] [place] [address] Tila Hawkins MD Infrarenal abdominal aortic aneurysm [...] on file Legal Sex Male 11:58 PM CONCESSION ATTENDANT Gender Identity Not on file Sexual Orientation Not on file Obstetrics History Last Filed Vital Signs Vital Sign Reading Time Taken Comments Blood Pressure 144/85 02/23/2024 12:15 AM CDT Pulse 100 02/23/2024 12:15 AM CDT Temperature 36.9 C (98.4 F) 02/22/2024 7:17 PM CDT Respiratory Rate 17 02/22/2024 11:40 PM CDT [...] history exists Medical Devices Implanted Type Area Temper Mill Roller Device Identifier Shelf Expiration Date Model / Serial / Lot [employer] [id number] Angio-Seal Vip Bondek-Plus 6fr .035in 70cm Hemostatic Latex Free - [id number] Implanted:Qty: 1 on 02/12/2018 by Tiara Rodriguez MD at [facility] [employer] 10/11/2018 [id number] / / [id number] Procedures Procedure Name Priority Date/Time Associated Diagnosis Comments US DUPLEX SCAN AORTA, IVC ILIAC COMPLETE Schedule Routine, Read Routine (OP Routine) 05/21/2024 10:47 AM CONCESSION ATTENDANT Infrarenal abdominal aortic aneurysm (AAA) without rupture (HCC) from Last 3 Months Results * US Duplex Scan Aorta, IVC Iliac Complete (05/21/2024 10:47 AM CONCESSION ATTENDANT) LV EF % CONS SCIMAGE Anatomical Region Laterality Modality Vascular N/A Ultrasound 05/21/2024 10:0 0 AM CONCESSION ATTENDANT Narrative 05/23/2024 1:19 PM CONCESSION ATTENDANT Vascular & Vein Surgery [address] [facility] [place] [address] Abdominal Aortic Duplex Ultrasound Report Patient Name: DAVIDE THOMSON W : 1940 Study Date: 05/21/2024 10:00:05 AM Gender: M Baggage Agent Supervisor: DEVIN Location: [facility] Ref Provider: TILA HAWKINS Quality: Adequate Order Provider: TILA HAWKINS PROCEDURES: Arterial Report: Duplex ultrasound imaging of the abdominal aorta. INDICATIONS: Follow up AAA and I71.43 Infrarenal abdominal aortic aneurysm, without rupture. HISTORY: Hypertension. Hyperlipidemia. Afib. COPD. Prostate/lung CA. Former smoker. COMPARISONS: Prior CTA @ [facility] 02/16/23. MEASUREMENTS: Velocities Value Diameters Value Aorta Prx PSV 57.00 cm/sec Aorta Prx AP Dim 2.75 cm Aorta Mid PSV 47.00 cm/sec Aorta Prx Trans Dim 2.86 cm Aorta Dst PSV 69.00 cm/sec Aorta Mid AP Dim 2.44 cm Rt Com Iliac Prx PSV 129.00 cm/sec Aorta Mid Trans Dim 2.37 cm Lt Com Iliac Prx PSV 142.00 cm/sec Aorta Dst AP Dim 2.98 cm Aorta Dst Trans Dim 3.16 cm [...] above. Electronically Signed By: Tila Hawkins MD [facility] 05/23/2024 1:18:34 PM CONCESSION ATTENDANT Procedure Note Tila Hawkins MD - 05/23/2024 Vascular & Vein Surgery [address] [place] [address] Abdominal Aortic Duplex Ultrasound Report Patient Name: DAVIDE THOMSON W : 1940 Study Date: 05/21/2024 10:00:05 AM Gender: M Baggage Agent Supervisor: Location: [facility] Provider: TILA HAWKINS Quality: Adequate Order Provider: [...] that is provided above. Electronically Signed By: MD ROSALIA Jaffe 05/23/2024 1:18:34 PM CONCESSION ATTENDANT Tila Hawkins MD [facility] PROCEDURES Final Result from Last 3 Months Insurance MEDICARE SOL[employer]IONS Advance Directives For more information, please contact: [phone] * Full Code (Latest Code Status on File) Date Activated Date Inactivated Comments 02/12/2018 1:31 PM 02/12/2018 5:35 PM * Full Code Date Activated Date Inactivated Comments 10/12/2017 2:15 PM 10/13/2017 5:10 PM Care Teams Chip Unloader Relationship Specialty Start Date End Date Arnold Fernández MD [address] [place] [address] PCP - General Family Medicine 02/10/24
--- OUTSIDE RECORDS SUMMARY | 2024-06-23 09:31 | XMS_ITS | Referral Summary ---
Author Organization [facility] [address] Address [address] [place] [address] Care Team Providers Care And Drying Supervisor Cooking Casing Name Role Phone Arnold Fernández MD Primary Care Prov ider Encounters Date Type Department Care Team Description 05/28/2024 Telephone [facility] Vascular and Vein Surgery [address] [place] [phone] Tila Hawkins MD 05/21/2024 10:00 AM ROUGH ROUNDER MACHINE Ancillary Procedure [facility] Vascular and Vein Surgery at [address] [place] [phone] Infrarenal abdominal aortic aneurysm (AAA) without rupture (HCC) 04/24/2024 Telephone [facility] Vascular and Vein Surgery [address] [place] [address] Elena Torrez MA 04/24/2024 Telephone [facility] Vascular and Vein Surgery [address] [place] [phone] Odalys Duarte 04/24/2024 Telephone [facility] Vascular and Vein Surgery [address] [place] [address] Elena Torrez MA 04/24/2024 Orders Only [facility] Vascular and Vein Surgery [address] [place] [address] Tila Hawkins MD Infrarenal abdominal aortic aneurysm [...] (02/05/2018): Added automatically from request for surgery [id number] Hemorrhoids 09/11/2017 Prostate cancer 09/11/2017 Double vision 06/06/2017 Blurry vision 06/06/2017 Chronic anticoagulation 06/06/2017 Nonrheumatic aortic valve stenosis 06/06/2017 Abdominal aortic aneurysm (AAA) without rupture 06/06/2017 Assessment & Plan (05/02/2023 10:22 AM ROUGH ROUNDER MACHINE): 3.1 cm infrarenal abdominal aortic aneurysms, discussed finding with the patient with the recommendation for intervention at 5.5 cm or with rapid growth. Recommend risk factor modification with ASA, statin therapy in good blood pressure control. Discussed the importance of ongoing surveillance with repeat aortoiliac duplex in 1 year. Dizziness 06/06/2017 Hyperlipidemia LDL goal <70 06/06/2017 Assessment & Plan (05/02/2023 10:22 AM ROUGH ROUNDER MACHINE): Stable continue Crestor 10 mg. History of [...] 2014 Assessment & Plan (05/02/2023 10:21 AM ROUGH ROUNDER MACHINE): Stable continue Eliquis 5 mg. Cephalalgia 05/30/2013 [...] on file Legal Sex Male 11:58 PM ROUGH ROUNDER MACHINE Gender Identity Not on file Sexual Orientation [...] on file Medical Devices Implanted Type Area Greenhouse Superintendent Device Identifier Shelf Expiration Date Model / Serial / Lot [employer] [id number] Angio-Seal Vip Bondek-Plus 6fr .035in 70cm Hemostatic Latex Free - [id number] Implanted:Qty: 1 on 02/12/2018 by Tiara Rodriguez MD at [facility] [employer] 10/11/2018 [id number] / / [id number] Procedures Procedure Name Priority Date/Time Associated Diagnosis Comments US DUPLEX SCAN AORTA, IVC ILIAC COMPLETE Schedule Routine, Read Routine (OP Routine) 05/21/2024 10:47 AM ROUGH ROUNDER MACHINE Infrarenal abdominal aortic aneurysm (AAA) without rupture (HCC) from Last 3 Months Results * US Duplex Scan Aorta, IVC Iliac Complete (05/21/2024 10:47 AM ROUGH ROUNDER MACHINE) LV EF % CONS SCIMAGE Anatomical Region Laterality Modality Vascular N/A Ultrasound 05/21/2024 10:0 0 AM ROUGH ROUNDER MACHINE Narrative 05/23/2024 1:19 PM ROUGH ROUNDER MACHINE Vascular & Vein Surgery [address] [place] [address]. [place] [address] Abdominal Aortic Duplex Ultrasound Report Patient Name: DAVIDE THOMSON W : 1940 Study Date: 05/21/2024 10:00:05 AM Gender: M Industrial Methods Consultant: Location: [facility] Ref Provider: TILA HAWKINS Quality: [...] above. Electronically Signed By: Tila Hawkins MD [facility] 05/23/2024 1:18:34 PM ROUGH ROUNDER MACHINE Procedure Note Tila Hawkins MD - 05/23/2024 Vascular & Vein Surgery [address] [place] [address] Abdominal Aortic Duplex Ultrasound Report Patient Name: DAVIDE THOMSON W : 1940 Study Date: 05/21/2024 10:00:05 AM Gender: M Industrial Methods Consultant: DEVIN Location: [facility] Provider: TILA HAWKINS Quality: Adequate Order Provider: [...] By: MD ROSALIA Jaffe 05/23/2024 1:18:34 PM ROUGH ROUNDER MACHINE Tila Hawkins MD [facility] PROCEDURES Final Result from Last 3 Months Insurance MEDICARE SOLUTIONS Advance Directives For more information, please contact: [phone] * Full Code (Latest Code Status on File) Date Activated Date Inactivated Comments 02/12/2018 1:31 PM 02/12/2018 5:35 PM * Full Code Date Activated Date Inactivated Comments 10/12/2017 2:15 PM 10/13/2017 5:10 PM Care Teams And Drying Supervisor Cooking Casing Relationship Specialty Start Date End Date Arnold Fernández MD [address] [place] [address] PCP - General Family Medicine 02/10/24
--- OUTSIDE RECORDS SUMMARY | 2024-06-23 09:31 | XMS_ITS ---
Author Organization [facility] Address [address] [place] [address] Phone Care Team Providers Care Director Of Public Relations Name Role Phone Unavailable Primary Care Provider Unavailabl e Active Problems Problem Noted Date Diagnosed Date Chronic obstructive pulmonary disease 02/29/2024 Pyogenic arthritis of right knee joint 4 S/P total knee arthroplasty, right 02/10/2024 Paroxysmal atrial fibrillation 02/10/2024 Primary hypertension 02/10/2024 Stage 3a chronic kidney disease 02/10/2024 Prostate cancer 09/11/2017 Nonrheumatic aortic valve stenosis 06/06/2017 Overview (02/29/2024): Added automatically from request for surgery [id number] Hyperlipidemia LDL goal <70 06/06/2017 History of [...]
--- OUTSIDE RECORDS SUMMARY | 2024-06-23 09:31 | XMS_ITS | Encounter Summary ---
Author Organization [facility] Address [address] [place] [address] Phone Care Team Providers Care Electronic Instrument Trades Worker Name Role Phone Angelo Galvan DO Primary Care Provider [phone] Arnold Fernández MD Primary Care Prov ider [...] on file Legal Sex Male 11:58 PM DINKEY SKINNER Gender Identity Not on file Sexual Orientation [...] documented as of this encounter Care Teams Electronic Instrument Trades Worker Relationship Specialty Start Date End Date Angelo Galvan DO PCP - General Internal Medicine 08/31/17 02/09/24 Arnold Fernández MD [address] [place] [address] PCP - General Family Medicine 02/10/24 documented as of this encounter
--- OUTSIDE RECORDS SUMMARY | 2024-06-23 09:31 | XMS_ITS | CONTINUITY OF CARE DOCUMENT ---
Author Name indigo sood Address Unknown Organization [facility] Address [address] [place] [address] Phone [phone] Care Team Providers Care Hide Handler Name Role Phone Hari TORRES, Morro Unavailable [phone] EVAN GARCIA MD Unavailable [phone] EVAN GARCIA MD Unavailable [phone] PROBLEMS Condition Status Date Provider Notes [...] Hx of TIA active Morro Noriega MD CAD--mild CAD, cath 03/2023--stress PET fixed defects, 04/2024 active Wili Zaragoza Chest discomfort completed - Morro Noriega MD Cardiology examination active Wili Zaragoza Weakness active Wili Zaragoza Near syncope active Wili Zaragoza Bladder cancer s/p resection of mass active Wili Vázquezpranav ENCOUNTERS Date Type Provider Location Encounter Diag nosis - In-person encounter Office Visit Morro Noriega MD [facility] CAD--mild CAD, cath 03/2023--stress PET fixed defects, ladder cancer s/p resection of mass - In-person encounter Office Visit Morro Noriega MD [facility] Aortic stenosis--mild echo 02/2024Hx of lung cancer 2013, upper R lobectomyCAD--mild CAD, cath 03/2023--stress PET fixed defects, ardiology examinationWeaknessNear syncope - In-person encounter Office Visit Morro Noriega MD [facility] Aortic stenosis--mild echo 02/2024 - In-person encounter Office Visit Morro Noriega MD [facility] Chest discomfort - In-person encounter Office Visit Morro Noriega MD [facility] Aortic stenosis--mild echo AD--mild CAD, cath 03/2023--stress PET fixed defects, 04/2024 - In-person encounter Office Visit Morro Noriega MD [facility] Shortness of breath--nl stress nuc 03/2022 - In-person encounter Office Visit Morro Noriega MD [facility] Aortic stenosis--mild echo AATobacco abuse--quitAtrial fibrillation, persistentHx of lung cancer 2013, upper R lobectomyHx of TIACAD--mild CAD, cath 03/2023--stress PET fixed defects, 04/2024 VITAL SIGNS Date Observation Value Provider Body Mass Index (Ratio) 25.01 kg/m2 Ramiro Noriega MD oxygen saturation, oximetry 98 % [facility] pulse rate 87 /min Renée [...] ramires Romero blood pressure, cuff size regular [facility] Romero oxygen saturation, oximetry 98 % [facility] Romero pulse rate 88 /min [facility] Romero weight E&M 162.8 [lb_av] [facility] height E&M 66 [in_i] [facility] Romero Body Mass Index (Ratio) 26.47 kg/m2 [...] Low Absolute Neutrophil count 2452 cells/mcL [employer] [id number] Normal mean platelet volume 10.2 fL [employer] [...] Wili Zaragoza tamsulosin 0.4 mg capsule active Wlii Zaragoza carvedilol 3.125 mg tablet completed - 1 iWli Zaragoza spironolactone 25 mg tablet completed - [...] Angina (inactive) Management Plan continue current therapy Wiil Vázquezzai HRA, CV Assess/Plan, Angina (inactive) Management Plan continue current therapy Wili Vázquezzai INSURANCE PROVIDERS Payer name Policy type / Coverage type [employer] party ID [employer] MEDICARE [place] PPO Medicare [id number] 400 ADVANCE DIRECTIVES Name Date DISCUSSED - NO DECISION MADE TREATMENT PLAN Date Name Performer [id number],SMorro MD [id number],Morro Jasmine MD [id number],Morro Singh MD [id number],Morro Jasmine MD [id number],WMorro MD [id number],SWili i [id number],SWili i [id number],SWili i [id number],SWili i [id number],SWili i [id number],S,n oted to be orthostatic on exam today. We will have him hold his lasix will do labs for further eval. echo and telemonitor planned as well to rule out valvular abnormalities or arrhythmias. will also do carotid duplex, pt will return post testing or sooner if needed. Maureen Stonemiglia [facility] [id number],S,m ild to moderate per cath. will update echo to look for any change in stenosis as pt has increasing CUEVAS. Maureen Stonemiglia [facility] [id number],S,c ath 04/2022 with non obstructive CAD. medical management at this time Maureen Stonemiglia [facility] [id number],W,m ore pronounced with minimal activity. different than pt normal COPD sx. will update echo and labs to look for underlying source of SOB Maureen Ventimiglia [facility] [id number],S, Wili Ahmedza i [id number],S, Wili Ahmedza i [id number],W, Wili Ahmedza i [id number],S, Wili Ahmedza i [id number],S, Wili Ahmedza i [id number],S, Wili Ahmedza i [id number],S, Wili Ahmedza i [id number],S, Wili Ahmedza i [id number],S, Wili Ahmedza i [id number],S, Wili Ahmedza i [id number],S, Wili Ahmedza i [id number],S, Wili Ahmedza i [id number],S, Wili Ahmedza i [id number],W, Wili Ahmedza i [id number],W, Wili Henriquezmedza i [id number],S, Wili Henriquezmedza i [id number],S, Wili Henriquezmedza i [id number],W, Wili Henriquezmedza i [id number],S, Wili Henriquezmedza i Cardiology Morro Noriega MD Cardiology: H is updated medication list for this problem includes: Trelegy Ellipta 100-62.5-25 Mcg Blister With Device (Lurqfptldaz-mtghhqlfo-lzejsdyr) Morro Noriega MD Cardiology: H is updated [...] Trelegy Ellipta 100-62.5-25 Mcg Blister With Device (Tbdyvicydhy-lzfprgglf-sgqisrhx) Wili Zaragoza Telehealth Wili Zaragoza Telehealth: T he following medications were removed from the medication list: Valsartan 40 Mg Tablet (Valsartan) ..... Take 1 tablet by mouth once daily His updated medication list for this problem includes: Diltiazem Hcl (cardizem Cd) 120 Mg Capsule,extended Release 24hr (Diltiazem hcl (cardizem cd)) ..... Take 1 tablet by mouth every day Orders: S tress Cardiac PET-CT (77136) m yocardial blood flow (PET) (32289) [facility]: O rders: S tress Cardiac PET-CT (77236) m yocardial blood flow (PET) (73079) [facility] Tele[facility]: O rders: S tress Cardiac PET-CT (32291) m yocardial blood flow (PET) (13949) [facility] Card[facility]: O rders: C omplete Echo (15996) [facility]: H is updated medication list for this problem includes: Valsartan 40 Mg Tablet (Valsartan) ..... Take 1 tablet by mouth once daily Orders: C omplete Echo (59384) M onitor - Telemetry (Mobile Cardiac) (CPT-96068) [facility] Card[facility]: H is updated medication list for this problem includes: Trelegy Ellipta 100-62.5-25 Mcg Blister With Device (Hmcljfvngne-rgycrmlbz-qyscafqm) [facility]: O rders: M onitor - Telemetry (Mobile Cardiac) (CPT-[id number]) Wili ruy Cardiology: O rders: M onitor - Telemetry (Mobile Cardiac) (CPT-73266) Wili Zaragoza Telehealth Morro Noriega MD Telehealth Morro Noriega MD Telehealth Morro Noriega MD Telehealth Morro Noriega MD Telehealth Morro Noriega MD Cardiology Wili Ahmedzai Cardiology Wili Ahmedzai Cardiology Iwli Ahmedzai Cardiology Wili Ahmedzai Cardiology Wili Ahmedzai Cardiology:noted to be orthostatic on exam today. We will have him hold his lasix will do labs for further eval. echo and telemonitor planned as well to rule out valvular abnormalities or arrhythmias. will also do carotid duplex, pt will return post testing or sooner if needed. Maureen Ventimiglia [facility] Cardiology:mild to m oderate per cath. will update echo to look for any change in stenosis as pt has increasing CUEVAS. Maureen Ventimiglia [facility] Cardiology:cath 04/14 022 with non obstructive CAD. medical management at this time Maureen Ventimiglia [facility] Cardiology:more pron ounced with minimal activity. different than pt normal COPD sx. will update echo and labs to look for underlying source of SOB Maureen Ventimiglia [facility] Cardiology Wili Ahmedzai Cardiology Wili Ahmedzai [...]
--- OUTSIDE RECORDS SUMMARY | 2024-06-23 09:31 | XMS_ITS | Encounter Summary ---
Author Organization [facility] Address [address] [place] [address] Care Team Providers Care Manager Workers Compensation Name Role Phone Endy Garcia MD Primary Care Provider [phone] Angelo Galvan DO Primary Care Provider [phone] Endy Garcia MD Primary Care Provider [phone] Encounter Details Date Type Department Care Team (Late st Contact Info) Description 11/28/2018 Lab Requisition [facility] DermPath Lab [address] [place] [id number] [place] [address] Social History Tobacco Use Types [...] AM CDT) Case Report Dermatopathology Report Case: [id number] Authorizing Provider: Raymond Aguero MD Collected: 11/27/2018 12:00 AM Pathologist: Davy Ramirez MD Received: 11/28/2018 11:37 AM Specimen: Skin, left superior forehead left of midline 3:44 PM T DERMATOPATHOLOGY LABORATORY Final Diagnosis Specimen A. SKIN, left superior forehead left of midline: EPIDERMOID CYST (L72.0) 3:44 PM T DERMATOPATHOLOGY LABORATORY Clinical History R/O EIC. 3:44 PM CDT DERMATOPATHOLOGY LABORATORY Gross Description Specimen A: Received is one formalin filled container labeled with the patient's name and designated left superior forehead left of midline. The specimen consists of a [id number] excision, bisected. Jar 0. 3:44 PM CDT [...] characteristic determined by the Dermatopathology Laboratory at [facility], directed by Dr. Gris Ramirez. These tests need not be, and therefore are not, approved by the [place] Food and Drug Administration. The tests are used for clinical purposes. Billing Codes Specimen Charges Stain Charges 44958 1 3:44 PM CDT DERMATOPATHOLOGY LABORATORY Embedded Images 3:44 PM CDT DERMATOPATHOLOGY LABORATORY Pathology/Cytolog y TISSUE SPECIMEN FROM SKIN / Unknown 11/27/2018 11/28/2018 11:37 AM CDT Raymond Aguero MD LAB - PATHOLOGY/CYTO LOGY ORDERABLES DERMATOPATHOLOGY LABORATORY [facility] - Department of Dermatology [address] [place] [address] 5th Floor Lab [address] [phone] documented in this encounter Visit Diagnoses Not on filedocumented in this encounter Care Teams Manager Workers Compensation Relationship Specialty Start Date End Date Endy Garcia MD [address] [facility] [address] [place] [address] PCP - General 10/31/18 01/24/20 Angelo Galvan DO [address] [place] [address] PCP - General Internal Medicine 01/25/20 03/21/20 Endy Garcia MD [address] [facility] [place] [address] PCP - General 03/22/20 documented as of this encounter
--- OUTSIDE RECORDS SUMMARY | 2024-06-23 09:31 | XMS_ITS | Clinical Summary ---
Author Organization [facility] Address [address] [place] [address] Care Team Providers Care It Sales Executive Name Role Phone Endy Garcia MD Primary Care Provider [phone] Source Comments [facility],non-[facility] Affiliates and Associated Physician Practices is amultiple site organization consisting of ambulatory clinics and hospital sitesin [place], [place], [place] and [place]. This disclosure is being madepursuant to the Care Everywhere program and may not contain all information available regarding this patient. Last updated 18.[facility] Immunizations Name Administration Dates Next Due INFLUENZA [...] history exists DEPRESSION SCREENING 05/14/2024 MEDICARE AWV CALENDAR YEAR 2024 HEPATITIS B VACCINE Aged [...] age to complete this topic Care Teams It Sales Executive Relationship Specialty Start Date End Date Endy Garcia MD [address] [place] [address] PCP - General 03/22/20
--- OUTSIDE RECORDS SUMMARY | 2024-06-23 09:31 | XMS_ITS | Continuity of Care Document ---
Author Organization [facility] Address [address] [place] [address] Phone Care Team Providers Care Refrigerator Crater Name Role Phone Ed Flores Unavailable Unavailable [...] Diagnoses Date Provider Providers Copied on Encounter Merged with [facility], [address], [place], [place], [address], [place] tel:[phone] [facility] No Information Hebert-0 8-201 0 Doisy Edjunie. [address], [place], [address], [place]. tel:[phone] [facility], [address], [place], [place], [address], [place] tel:[phone] [facility] No Information Apr-0 9-200 9 Das OD Layo. [address] , [address], [place], [place], [facility], [place]. tel:[phone] [facility], [address], [place], [place], [address], [place] tel:[phone] [facility] No Information Mar-2 5-200 9 Doisy Edjunie. [address] , [address], [place], [place], [facility], [place]. tel:[phone] [facility], [address], [place], [place], [address], [place] tel:[phone] [facility] No Information Mar-2 4-200 9 Doisy Edjunie. [address] , [address], [place], [facility], [place]. tel:[phone] [facility], [address], [place], [place], [address], [place] tel:[phone] [facility] No Information Mar-1 8-200 9 Doisy Edjunie. [address] , [address], [place], [address], [place]. tel:[phone] Referring Provider: Ed Pérez, [facility] [address], [place], [place], [facility]. tel:[phone] [facility], [address], [place], [place], [address], [place] tel:[phone] [facility] No Information Mar-0 4-200 9 Mark Ward. [address] , [address], [place], [address], [place]. tel:[phone] [facility], [address] [place] [address] [address], [place], [place], [address], [place] tel:[phone] [facility] No Information Mar-0 3-200 9 Mark Ward. [address] , [address], [place], [facility], [place]. tel:[phone] Office/outpat ient Visit, [facility], [address] [place] [address] [address], [place], [place], [address], [place] tel:[phone] [facility] No Information Feb-2 3-200 9 Mark Ward. [address] , [address], [place], [facility], [place]. tel:[phone] Referring Provider: Ed Pérez, [address] [place], [place] [address], [place], [place], [facility]. tel:[phone] Office/outpat ient Visit, [facility], [address] [place] [address] [address], [place], [place], [address], [place] tel:[phone] [facility] No Information Nov-1 0-200 8 Mark Ward. [address] , [address], [place], [facility], [place]. tel:[phone] [facility], [address] [place] [address] [address], [place], [place], [address], [place] tel:[phone] [facility] No Information Oct-2 4-200 8 Das OD Layo. [address] [facility] [address] , [address], [place], [facility], [place]. tel:[phone] Office/outpat ient Visit, [facility], [address] [place] [address] [address], [place], [place], [address], [place] tel:[phone] [facility] No Information Sep-2 7-200 7 Das OD Layo. [address] [facility] , [address], [place], [facility], . tel:[phone] Office/outpat ient Visit, [facility], [address] [place] [address] [address], [place], [place], [address], [place] tel:[phone] [facility] No Information Sep-2 5-200 7 Das OD Layo. [address] , [address], [place], [address], . tel:[phone] Office/outpat ient Visit, [facility], [address] [place] [address] [address], [place], [place], [address], tel:[phone] [facility] No Information Nov-1 1-200 7 Das OD Layo. [address] [facility], [address], [place], [address], . tel:[phone] Merged with [facility], [address] [place] [address] [address], [place], [place], [address], tel:[phone] [facility] No Information Mitchell-2 7-200 7 Das OD Layo. [address] , [address], [place], [place], [facility], [place]. tel:[phone] Family History Family Member Type Diagnosis Age At Onset No Information Payers Payer name Insurance type Covered democrat ID Authoriza tishira(s) [place] [id number] [facility] [id number] Social History Type Description Quantity Date Captured [...]
--- OUTSIDE RECORDS SUMMARY | 2024-06-23 09:31 | XMS_ITS ---
Author Organization [facility] [address] Address [address] [place] [address] Care Team Providers Care Sample Case Porter Name Role Phone Arnold Fernández MD Primary Care Prov ider Active Problems Problem Noted Date Diagnosed Date Stage 3a chronic kidney disease 02/10/2024 History of total knee arthroplasty 02/10/2024 Effusion of right knee 02/10/2024 CUEVAS (dyspnea on exertion) 02/05/2018 Aortic valve stenosis 02/05/2018 Overview (02/05/2018): Added automatically from request for surgery [id number] Hemorrhoids 09/11/2017 Prostate cancer 09/11/2017 Double vision 06/06/2017 Blurry vision 06/06/2017 Chronic anticoagulation 06/06/2017 Nonrheumatic aortic valve stenosis 06/06/2017 Abdominal aortic aneurysm (AAA) without rupture 06/06/2017 Assessment & Plan (05/02/2023 10:22 AM TOOL MACHINE SET UP OPERATOR): 3.1 cm infrarenal abdominal aortic aneurysms, discussed finding with the patient with the recommendation for intervention at 5.5 cm or with rapid growth. Recommend risk factor modification with ASA, statin therapy in good blood pressure control. Discussed the importance of ongoing surveillance with repeat aortoiliac duplex in 1 year. Dizziness 06/06/2017 Hyperlipidemia LDL goal <70 06/06/2017 Assessment & Plan (05/02/2023 10:22 AM TOOL MACHINE SET UP OPERATOR): Stable continue Crestor 10 mg. History of [...] 2014 Assessment & Plan (05/02/2023 10:21 AM TOOL MACHINE SET UP OPERATOR): Stable continue Eliquis 5 mg. Cephalalgia 05/30/2013 Small cell carcinoma of lung 05/29/2013 Chronic obstructive pulmonary disease Current Oncology Plans No current plan information found. Past Plans No past plan information found. Radiation Treatments * No radiation treatments are documented for this patient in [facility]. Treatments may have been administered in another system. Lifetime Dose Tracking * Chemical Lifetime Dose Automatic Entry Manual Entr y Air kerma at the reference point (Ka,r) 312 mGy 0 mGy 312 mGy
--- OUTSIDE RECORDS SUMMARY | 2024-06-23 09:31 | XMS_ITS | Encounter Summary ---
Author Organization [facility] Address [address] [place] [address] Care Team Providers Care Financial Professional Name Role Phone Endy Garcia MD Primary Care Provider [phone] Endy Garcia MD Primary Care Provider [phone] Angelo Galvan DO Primary Care Provider [phone] Arnold Fernández MD Primary Care Prov ider Encounter Details Date Type Department Care Team (Late st Contact Info) Description 05/23/2016 Orders Only [facility] ProviderZahraa MD [address] [place] [address] Social History Tobacco Use Types Packs/Day Years Used Date Smoking Tobacco: Former Cigarettes Q uit: 05/14/2012 Alcohol Use Standard Drinks/Week Comments No 0 (1 standard drink = 0.6 oz pur e alcohol) Sex and Gender Information Value Date Recorded Sex Assigned at Not on file Legal Sex Male 11:58 PM MEDICAL PLANNER Gender Identity Not on file Sexual Orientation [...] documented as of this encounter Care Teams Financial Professional Relationship Specialty Start Date End Date Endy Garcia MD PCP - General 08/11/16 08/30/17 Endy Garcia MD PCP - General 06/11/13 08/10/16 Angelo Galvan DO PCP - General Internal Medicine 08/31/17 02/09/24 Arnold Fernández MD [address] [place] [address] PCP - General Family Medicine 02/10/24 documented as of this encounter
== END 2024-06-23 09:07 | disposition home or self-care (01) ==
LOC: CHSIMG 09:07
PROVIDERS: PCP Family Medicine Adolescent Medicine; Visit Provider Internal Medicine
DX: M85.89 Other specified disorders of bone density and structure, multiple sites (principal); E04.2 Nontoxic multinodular goiter; E83.52 Hypercalcemia; E27.8 Other specified disorders of adrenal gland
CPT/HCPCS: 77080

== ENCOUNTER 2024-06-30 10:43 | Outpatient (CLI) | payer MEDICARE, SELFPAY ==
--- NOTE | ~2024-06-30 | US_ITS ---
EXAMINATION: US thyroid DATE: 06/30/2024 11:02 INDICATION: Goiter. TECHNIQUE: Multiple ultrasound images of the thyroid were obtained. COMPARISON: Ultrasound 08/27/2023, 02/11/20 FINDINGS: The right thyroid lobe measures 3.7 x 2.1 x 1.3 cm. The left thyroid lobe measures 3.9 x 2.0 x 1.6 c m. In the right thyroid lobe, there is a 9 mm solid, hypoechoic, wider than tall nodule with smooth margin without echogenic foci (TI-RADS TR4). In the right thyroid lobe, there is a 15 mm solid, very hypoechoic, wider than tall nodule with smooth margin and peripheral calcifications (TR5), stable fro m 03/05/2020 biopsy was benign. In the left thyroid lobe, there is a 17 mm solid, hypoechoic, wider t patrick tall nodule with smooth margin without echogenic foci (TR4), that measured 11 mm on 02/11/20. IMPRESSION: 1. Multinodular goiter. Consider ultrasound-guided fine-needle aspiration of the 17 mm nodule in infe rior left thyroid lobe if clinically indicated given the patient's age. Reviewed, dictated and finalized at location A. IFIED DIETARY MANAGER IMPRESSION: 1. Multinodular goiter. Consider ultrasound-guided fine-needle aspiration of th e 17 mm nodule in inferior left thyroid lobe if clinically indicated given the patient's age.
== END 2024-06-30 10:44 | disposition home or self-care (01) ==
PROVIDERS: PCP Family Medicine Adolescent Medicine; Visit Provider Internal Medicine
DX: E04.2 Nontoxic multinodular goiter (principal); E27.8 Other specified disorders of adrenal gland; E83.52 Hypercalcemia; E78.00 Pure hypercholesterolemia, unspecified; M81.0 Age-related osteoporosis without current pathological fracture; N25.81 Secondary hyperparathyroidism of renal origin; R73.01 Impaired fasting glucose
CPT/HCPCS: 76536

== ENCOUNTER 2024-07-17 12:53 | Outpatient (CLI) | payer MEDICARE, SELFPAY ==
--- NOTE | ~2024-07-17 | US_ITS ---
The nodule described on the thyroid ultrasound from 06/30/2024 in the inferior left thyroid lobe is in the mediastinum and not sufficiently accessible for ultrasound-guided biopsy. The biopsy was ester ahuja. Reviewed, dictated and finalized at location A. ER [facility]
--- OUTSIDE RECORDS SUMMARY | 2024-07-17 14:12 | XMS_ITS | Clinical Summary ---
Author Organization [facility] [address] Address [address] [place] [address] Care Team Providers Care Scissors Grinder Name Role Phone Arnold Fernández MD Primary [...] (02/05/2018): Added automatically from request for surgery [id number] Hemorrhoids 09/11/2017 Prostate cancer 09/11/2017 Double vision 06/06/2017 Blurry vision 06/06/2017 Chronic anticoagulation 06/06/2017 Nonrheumatic aortic valve stenosis 06/06/2017 Abdominal aortic aneurysm (AAA) without rupture 06/06/2017 Assessment & Plan (05/02/2023 10:22 AM MASTER CHEF): 3.1 cm infrarenal abdominal aortic aneurysms, discussed finding with the patient with the recommendation for intervention at 5.5 cm or with rapid growth. Recommend risk factor modification with ASA, statin therapy in good blood pressure control. Discussed the importance of ongoing surveillance with repeat aortoiliac duplex in 1 year. Dizziness 06/06/2017 Hyperlipidemia LDL goal <70 06/06/2017 Assessment & Plan (05/02/2023 10:22 AM MASTER CHEF): Stable continue Crestor 10 mg. 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 Cephalalgia 05/30/2013 Small cell carcinoma of lung 05/29/2013 Chronic obstructive pulmonary disease Encounters Date Type Department Care Team Description 05/28/2024 Telephone [facility] Vascular and Vein Surgery [address] [place] [phone] Tila Hawkins MD 05/21/2024 10:00 AM MASTER CHEF Ancillary Procedure [facility] Vascular and Vein Surgery at [address] [place] [address] Infrarenal abdominal aortic aneurysm (AAA) without rupture 04/24/2024 Telephone [facility] Vascular and Vein Surgery [address] [place] [address] [place] [phone] Elena Torrez MA 04/24/2024 Telephone [facility] Vascular and Vein Surgery [address] [place] [address] [place] [phone] Odalys Duarte 04/24/2024 Telephone [facility] Vascular and Vein Surgery [address] [place] [address] [place] [phone] Elena Torrez MA 04/24/2024 Orders Only [facility] Vascular and Vein Surgery [address] [place] [address] [place] [phone] Tila Hawkins MD Infrarenal abdominal aortic aneurysm (AAA) without rupture (Primary Dx) from Last 3 Months Immunizations Immunization Administration Dates Next Due Influenza, Quadrivalent, Hig [...] resection/decompression.; Comments: JJC 06/06/2016 - Atrial fibrillation (HCC) Aortic valve insufficiency Hypertension Depression Cataract Hemorrhoids Hard of hearing bilaterally Hyperlipidemia Cancer (HCC) 2013 small cell lung cancer Prostate cancer (HCC) 2016 43 [...] on file Legal Sex Male 11:58 PM MASTER CHEF Gender Identity Not on file Sexual Orientation [...] Depression Screening 1940 Fall Risk Assessment 1940 DTaP/Tdap/Td Vaccine (1 - Tdap) 1949 Hepatitis B Screening 1956 Pneumococcal vaccine 65+ (1 of 2 - PCV) 1957 Well Visit 65+ 2003 Zoster Vaccine (2 of 3) 06/12/2017 04/17/2017 Covid-19 Vaccine (4 - 2023-2 5 season) 2024 02/26/2021, 08/03/2020, 07/13/2020 Influenza Vaccine (#1) 2024 , 01/25/2020, 02/24/2018, Additional history exists Medical Devices Implanted Type Area Information Resources Manager Device Identifier Shelf Expiration Date Model / Serial / Lot [employer] [id number] Angio-Seal Vip Bondek-Plus 6fr .035in 70cm Hemostatic Latex Free - [id number] Implanted:Qty: 1 on 02/12/2018 by Tiara Rodriguez MD at [facility] [employer] 10/11/2018 [id number] / / [id number] Procedures Procedure Name Priority Date/Time Associated Diagnosis Comments US DUPLEX SCAN AORTA, IVC ILIAC COMPLETE Schedule Routine, Read Routine (OP Routine) 05/21/2024 10:47 AM MASTER CHEF Infrarenal abdominal aortic aneurysm (AAA) without rupture from Last 3 Months Results * US Duplex Scan Aorta, IVC Iliac Complete (05/21/2024 10:47 AM MASTER CHEF) LV EF % CONS SCIMAGE Anatomical Region Laterality Modality Vascular N/A Ultrasound 05/21/2024 10:0 0 AM MASTER CHEF Narrative 05/23/2024 1:19 PM MASTER CHEF Vascular & Vein Surgery [address] [place] [address] Abdominal Aortic Duplex Ultrasound Report Patient Name: DAVIDE THOMSON W : 1940 Study Date: 05/21/2024 10:00:05 AM Gender: M Maintenance Of Way Foreman: DEVIN Location: [facility] Ref Provider: TILA HAWKINS Quality: Adequate Order Provider: TILA HAWKINS PROCEDURES: Arterial Report: Duplex ultrasound imaging of the abdominal aorta. INDICATIONS: Follow up AAA and I71.43 Infrarenal abdominal aortic aneurysm, without rupture. HISTORY: Hypertension. Hyperlipidemia. Afib. COPD. Prostate/lung CA. Former smoker. COMPARISONS: Prior CTA @ [place] 02/16/23. MEASUREMENTS: Velocities Value Diameters Value Aorta [...] Electronically Signed By: Tila Hawkins MD [facility] 05/23/2024 1:18:34 PM MASTER CHEF Procedure Note Tila Hawkins MD - 05/23/2024 Vascular & Vein Surgery [address] [place] [address] Abdominal Aortic Duplex Ultrasound Report Patient Name: DAVIDE THOMSON W : 1940 Study Date: 05/21/2024 10:00:05 AM Gender: M Maintenance Of Way Foreman: Location: [facility] Provider: TILA HAWKINS Quality: Adequate Order Provider: TILA HAWKINS PROCEDURES: Arterial Report: Duplex ultrasound imaging of the abdominal aorta. INDICATIONS: Follow up AAA and I71.43 Infrarenal abdominal aortic aneurysm, withoutrupture. HISTORY: Hypertension. Hyperlipidemia. Afib. COPD. Prostate/lung CA. Formersmoker. COMPARISONS: Prior CTA @ [place] [address]/6/23. MEASUREMENTS: Velocities Value DiametersValue Aorta Prx PSV [...] By: MD ROSALIA Jaffe 05/23/2024 1:18:34 PM MASTER CHEF Tila Hawkins MD [facility] PROCEDURES Final Result from Last 3 Months Insurance [facility] [place] [address] Advance Directives For more information, please contact: [phone] * Full Code (Latest Code Status on File) Date Activated Date Inactivated Comments 02/12/2018 1:31 PM 02/12/2018 5:35 PM * Full Code Date Activated Date Inactivated Comments 10/12/2017 2:15 PM 10/13/2017 5:10 PM Care Teams Scissors Grinder Relationship Specialty Start Date End Date Arnold Fernández MD [address] [place] [address] PCP - General Family Medicine 02/10/24
--- OUTSIDE RECORDS SUMMARY | 2024-07-17 14:12 | XMS_ITS | Encounter Summary ---
Author Organization [facility] Address [address] [place] [address] Care Team Providers Care Arboriculture Instructor Name Role Phone Endy Garcia MD Primary Care Provider [phone] Angelo Galvan DO Primary Care Provider [phone] Endy Garcia MD Primary Care Provider [phone] Encounter Details Date Type Department Care Team (Late st Contact Info) Description 10/31/2018 Lab Requisition [facility] DermPath Lab [address] [place] [phone] Raymond [place] [address] Social History Tobacco Use Types [...] AM CDT) Case Report Dermatopathology Report Case: [id number] Authorizing Provider: Raymond Aguero MD Collected: 10/30/2018 12:00 AM Pathologist: Davy Ramirez MD Received: 10/31/2018 01:21 PM Specimen: Skin, left lat superior hip 2:26 PM T DERMATOPATHOLOGY LABORATORY Final Diagnosis Specimen A. SKIN, left lat superior hip: EPIDERMOID CYST WITH EVIDENCE OF RUPTURE (L72.0) 2:26 PM [facility] DERMATOPATHOLOGY LABORATORY Clinical History R/O inflammed & ruptured EIC. 2:26 PM T DERMATOPATHOLOGY LABORATORY Gross Description Specimen A: Received is one formalin filled container labeled with the patient's name and designated left lat superior hip.The specimen consists of an ellipse measuring [id number] and is oriented with the notch at [...] in cassettes 3-4. Jar 0. 2:26 PM [facility] DERMATOPATHOLOGY LABORATORY Microscopic Description Specimen A. SKIN, left lat superior hip: Within the dermis, there is a space lined by epithelium that resembles normal epidermis and the infundibular portion of the hair follicle. Surrounding this is an infiltrate with neutrophils, histiocytes, and multinucleated giant cells. 2:26 PM [facility] DERMATOPATHOLOGY LABORATORY Disclaimer An external and internal positive and negative controls are appropriate for the histochemical, immunohistochemical and immunofluorescence stain(s) in this case (if any), except where stated explicitly. The performance characteristics of the stain(s) cited in this report were developed and its performance characteristic determined by the Dermatopathology Laboratory at [facility], directed by Dr. Gris Ramirez. These tests need not be, and therefore are not, approved by the [place] Food and Drug Administration. The tests are used for clinical purposes. Billing Codes Specimen Charges Stain Charges 55825 1 2:26 PM T DERMATOPATHOLOGY LABORATORY Embedded Images 2:26 PM CDT DERMATOPATHOLOGY LABORATORY Pathology/Cytolog y TISSUE SPECIMEN FROM SKIN / Unknown 10/30/2018 10/31/2018 1:21 PM CDT Raymond Aguero MD LAB - PATHOLOGY/CYTO LOGY ORDERABLES DERMATOPATHOLOGY LABORATORY [facility] - Department of Dermatology [address] [place] [address], 5[address] Floor Lab [address] [phone] documented in this encounter Visit Diagnoses Not on filedocumented in this encounter Care Teams Arboriculture Instructor Relationship Specialty Start Date End Date Endy Garcia MD [address] [place] [address] PCP - General 10/31/18 01/24/20 Angelo Galavn DO [address] [place] [address] PCP - General Internal Medicine 01/25/20 03/21/20 Endy Garcia MD [address] [place] [address] PCP - General 03/22/20 documented as of this encounter
--- OUTSIDE RECORDS SUMMARY | 2024-07-17 14:12 | XMS_ITS | Encounter Summary ---
Author Organization [facility] Address [address] [place] [address] Care Team Providers Care Installment Account Checker Name Role Phone Endy Garcia MD Primary Care Provider [phone] Endy Garcia MD Primary Care Provider Angelo Galvan DO Primary Care Provider [phone] Arnold Fernández MD Primary Care Prov ider Encounter Details Date Type Department Care Team (Late st Contact Info) Description 05/23/2016 Orders Only [facility] ProviderZahraa MD [address] [place] [address] Social History Tobacco Use Types Packs/Day Years Used Date Smoking Tobacco: Former Cigarettes Q uit: 05/14/2012 Alcohol Use Standard Drinks/Week Comments No 0 (1 standard drink = 0.6 oz pur e alcohol) Sex and Gender Information Value Date Recorded Sex Assigned at Not on file Legal Sex Male 11:58 PM REIMBURSEMENT COORDINATOR Gender Identity Not on file Sexual [...] documented as of this encounter Care Teams Installment Account Checker Relationship Specialty Start Date End Date Endy Garcia MD PCP - General 08/11/16 08/30/17 Endy Garcia MD PCP - General 06/11/13 08/10/16 Angelo Galvan DO PCP - General Internal Medicine 08/31/17 02/09/24 Arnold Fernández MD [address] [place] [address] PCP - General Family Medicine 02/10/24 documented as of this encounter
--- OUTSIDE RECORDS SUMMARY | 2024-07-17 14:12 | XMS_ITS ---
Author Organization [facility] [address] Address [address] [place] [address] Care Team Providers Care Billboard Installer Name Role Phone Arnold Fernández MD Primary Care Prov ider Active Problems Problem Noted Date Diagnosed Date Stage 3a chronic kidney disease 02/10/2024 History of total knee arthroplasty 02/10/2024 Effusion of right knee 02/10/2024 CUEVAS (dyspnea on exertion) 02/05/2018 Aortic valve stenosis 02/05/2018 Overview (02/05/2018): Added automatically from request for surgery [id number] Hemorrhoids 09/11/2017 Prostate cancer 09/11/2017 Double vision 06/06/2017 Blurry vision 06/06/2017 Chronic anticoagulation 06/06/2017 Nonrheumatic aortic valve stenosis 06/06/2017 Abdominal aortic aneurysm (AAA) without rupture 06/06/2017 Assessment & Plan (05/02/2023 10:22 AM NURSES MEDICAL ASSISTANTS PHLEBOTOMISTS): 3.1 cm infrarenal abdominal aortic aneurysms, discussed finding with the patient with the recommendation for intervention at 5.5 cm or with rapid growth. Recommend risk factor modification with ASA, statin therapy in good blood pressure control. Discussed the importance of ongoing surveillance with repeat aortoiliac duplex in 1 year. Dizziness 06/06/2017 Hyperlipidemia LDL goal <70 06/06/2017 Assessment & Plan (05/02/2023 10:22 AM NURSES MEDICAL ASSISTANTS PHLEBOTOMISTS): Stable continue Crestor 10 mg. History of [...] 2014 Assessment & Plan (05/02/2023 10:21 AM NURSES MEDICAL ASSISTANTS PHLEBOTOMISTS): Stable continue Eliquis 5 mg. Cephalalgia 05/30/2013 Small cell carcinoma of lung 05/29/2013 Chronic obstructive pulmonary disease Current Treatment and Therapy Plans No current plan information found. Past Treatment and Therapy Plans No past plan information found. Lifetime Dose Tracking * Chemical Lifetime Dose Automatic Entry Manual Entr y Air kerma at the reference point (Ka,r) 312 mGy 0 mGy 312 mGy
--- OUTSIDE RECORDS SUMMARY | 2024-07-17 14:12 | XMS_ITS ---
Author Organization [facility] Address [address] [place] [address] Phone Care Team Providers Care Security Systems Installer Name Role Phone Unavailable Primary Care Provider Unavailabl e Active Problems Problem Noted Date Diagnosed Date Chronic obstructive pulmonary disease 02/29/2024 Pyogenic arthritis of right knee joint 4 S/P total knee arthroplasty, right 02/10/2024 Paroxysmal atrial fibrillation 02/10/2024 Primary hypertension 02/10/2024 Stage 3a chronic kidney disease 02/10/2024 Prostate cancer 09/11/2017 Nonrheumatic aortic valve stenosis 06/06/2017 Overview (02/29/2024): Added automatically from request for surgery [id number] Hyperlipidemia LDL goal <70 06/06/2017 History of [...]
--- OUTSIDE RECORDS SUMMARY | 2024-07-17 14:12 | XMS_ITS | CONTINUITY OF CARE DOCUMENT ---
Author Name indigo sood Address Unknown Organization [facility] Address [address] [place] [address] Phone [phone] Care Team Providers Care Unit Manager Rn Name Role Phone Hari TORERS, Morro Unavailable RADHA TORRES, EVAN Unavailable [phone] RADHA TORRES, EVAN Unavailable PROBLEMS Condition Status Date Provider Notes SVT, paroxysmal active Wili Zaragoza COPD active Wili Ortegai Dizziness active Wili Zaragoza Atrial fibrillation, persistent completed - Morro Noriega MD Chest discomfort completed - Morro Noriega MD Cardiology examination active Wili Zaragoza Bladder cancer s/p resection of mass active Wili Zaragoza Near syncope active Wili Ortegai Weakness active Wili Zaragoza CAD--mild CAD, cath 03/2023--stress PET fixed defects, 04/2024 active Wili Zaragoza Hx of TIA active Morro Noriega MD Hx of lung cancer 2014, uppe r R lobectomy active Wili Zaragoza Tobacco abuse--quit active Morro Noriega MD AAA completed - Moror Noriega MD Aortic stenosis--mild ech o 02/2024 active Wili Zaragoza Shortness of breath--nl stre ss nuc 03/2022 active Wili Zaragoza ENCOUNTERS Date Type Provider Location Encounter Diag nosis - In-person encounter Office Visit Morro Noriega MD [facility] CAD--mild CAD, cath 03/2023--stress PET fixed defects, ladder cancer s/p resection of mass - In-person encounter Office Visit Morro Noriega MD [facility] Aortic stenosis--mild echo 02/2024Hx of lung cancer 2013, upper R lobectomyCAD--mild CAD, cath 03/2023--stress PET fixed defects, ardiology examinationWeaknessNear syncope - In-person encounter Office Visit Morro Noriega MD [facility] Aortic stenosis--mild echo 02/2024 - In-person encounter Office Visit Morro Noriega MD [facility] Chest discomfort - In-person encounter Office Visit Morro Noriega MD [facility] Aortic stenosis--mild echo AD--mild CAD, cath 03/2023--stress PET fixed defects, 04/2024 - In-person encounter Office Visit Morro Noriega MD [facility] Shortness of breath--nl stress nuc 03/2022 - In-person encounter Office Visit Morro Noriega MD [facility] Aortic stenosis--mild echo AATobacco abuse--quitAtrial fibrillation, persistentHx of lung cancer 2013, upper R lobectomyHx of TIACAD--mild CAD, cath 03/2023--stress PET fixed defects, 04/2024 VITAL SIGNS Date Observation Value Provider Body Mass Index (Ratio) 25.01 kg/m2 Ramiro Noriega MD oxygen saturation, oximetry 98 % [facility] pulse [facility] 87 /min Renée Alvarez [...] ramires Romero blood pressure, cuff size regular [facility] Romero oxygen saturation, oximetry 98 % [facility] Romero pulse rate 88 /min [facility] Romero weight E&M 162.8 [lb_av] [facility] height E&M 66 [in_i] [facility] Romero Body Mass Index (Ratio) 26.47 kg/m2 [...] Low Absolute Neutrophil count 2452 cells/mcL [employer] [id number] Normal mean platelet volume 10.2 fL [employer] [...] Payer name Policy type / Coverage type [place] red libertarian ID [employer] MEDICARE [place] PPO Medicare [id number] ADVANCE DIRECTIVES Name Date DISCUSSED - NO DECISION MADE TREATMENT PLAN Date Name Performer [id number],SMorro MD [id number],Morro Jasmine MD [id number],Morro Singh MD [id number],Morro Jasmine MD [id number],WMorro MD [id number],SWili i [id number],SWili i [id number],SWili i [id number],SWili i [id number],SWili i [id number],S,n oted to be orthostatic on exam today. We will have him hold his lasix will do labs for further eval. echo and telemonitor planned as well to rule out valvular abnormalities or arrhythmias. will also do carotid duplex, pt will return post testing or sooner if needed. Maureen Stonemiglia [facility] [id number],S,m ild to moderate per cath. will update echo to look for any change in stenosis as pt has increasing CUEVAS. Maureen Stonemiglia [facility] [id number],S,c ath 04/2022 with non obstructive CAD. medical management at this time Maureen Stonemiglia [facility] [id number],W,m ore pronounced with minimal activity. different than pt normal COPD sx. will update echo and labs to look for underlying source of SOB Maureen Ventimiglia [facility] [id number],S, Wili Ahmedza i [id number],S, Wili Ahmedza i [id number],W, Wili Ahmedza i [id number],S, Wili Ahmedza i [id number],S, Wili Ahmedza i [id number],S, Wili Ahmedza i [id number],S, Wili Ahmedza i [id number],S, Wili Ahmedza i [id number],S, Wili Ahmedza i [id number],S, Wili Ahmedza i [id number],S, Wili Ahmedza i [id number],S, Wili Ahmedza i [id number],S, Wili Ahmedza i [id number],W, Wili Ahmedza i [id number],W, Wili Henriquezmedza i [id number],S, Wili Henriquezmedza i [id number],S, Wili Henriquezmedza i [id number],W, Wili Henriquezmedza i [id number],S, Wili Henriquezmedza i Cardiology Morro Noriega MD Cardiology: H is updated medication list for this problem includes: Trelegy Ellipta 100-62.5-25 Mcg Blister With Device (Ozoqtplzodo-mzuhwbumj-fcgcoujx) Morro Noriega MD Cardiology: H is updated [...] Trelegy Ellipta 100-62.5-25 Mcg Blister With Device (Ndgyzcuwfnc-vnnnpudrd-ccjeydwh) Wili Zaragoza Telehealth Wili Zaragoza Telehealth: T he following medications were removed from the medication list: Valsartan 40 Mg Tablet (Valsartan) ..... Take 1 tablet by mouth once daily His updated medication list for this problem includes: Diltiazem Hcl (cardizem Cd) 120 Mg Capsule,extended Release 24hr (Diltiazem hcl (cardizem cd)) ..... Take 1 tablet by mouth every day Orders: S tress Cardiac PET-CT (96947) m yocardial blood flow (PET) (86587) [facility]: O rders: S tress Cardiac PET-CT (15119) m yocardial blood flow (PET) (72539) [facility]: O rders: S tress Cardiac PET-CT (62057) m yocardial blood flow (PET) (05192) [facility]: O rders: C omplete Echo (72637) [facility]: H is updated medication list for this problem includes: Valsartan 40 Mg Tablet (Valsartan) ..... Take 1 tablet by mouth once daily Orders: C omplete Echo (38384) M onitor - Telemetry (Mobile Cardiac) (CPT-[id number]) [facility]: H is updated medication list for this problem includes: Trelegy Ellipta 100-62.5-25 Mcg Blister With Device (Ckvfakqnyit-uixzhlqym-pmyeyysf) [facility]: O rders: M onitor - Telemetry (Mobile Cardiac) (CPT-[id number]) Wili ruy Cardiology: O rders: M onitor - Telemetry (Mobile Cardiac) (CPT-84135) [facility] Telehealth Morro Noriega MD Telehealth Morro Noriega MD Telehealth Morro Norigea MD Telehealth Morro Noriega MD Telehealth Morro [...] testing or sooner if needed. Maureen Ventimiglia [facility] Cardiology:mild to m oderate per cath. will update echo to look for any change in stenosis as pt has increasing CUEVAS. Maureen Ventimiglia [facility] Cardiology:cath 04/14 022 with non obstructive CAD. medical management at this time Maureen Ventimiglia [facility] Cardiology:more pron ounced with minimal activity. different than pt normal COPD sx. will update echo and labs to look for underlying source of SOB Maureen Ventimiglia [facility] Cardiology Wili Ahmedzai Cardiology Wili Ahmedzai Cardiology [...]
--- OUTSIDE RECORDS SUMMARY | 2024-07-17 14:12 | XMS_ITS | Clinical Summary ---
Author Organization [facility] Address [address] [place] [address] Care Team Providers Care Director Of Institutional Research Name Role Phone Endy aGrcia MD Primary Care Provider [phone] Source Comments [facility],non-research psychiatric center Affiliates and Associated Physician Practices is amultiple site organization consisting of ambulatory clinics and hospital sitesin [place], [place], [place] and [place]. This disclosure is being madepursuant to the Care Everywhere program and may not contain all information available regarding this patient. Last updated 18.[facility] Immunizations Name Administration Dates Next Due INFLUENZA [...] age to complete this topic Care Teams Director Of Institutional Research Relationship Specialty Start Date End Date Endy Garcia MD [address] [place] [address] PCP - General 03/22/20
--- OUTSIDE RECORDS SUMMARY | 2024-07-17 14:12 | XMS_ITS | Referral Summary ---
Author Organization [facility] [employer] Address [address] [place] [address] Care Team Providers Care Clinical Trial Specialist Name Role Phone Endy Garcia MD Primary Care Provider [phone] Source Comments [facility] Affiliates and Associated Physician Practices is amultiple site organization consisting of ambulatory clinics and hospital sitesin [place], [place] and [place]. This disclosure is being madepursuant to the Care Everywhere program and may not contain all information available regarding this patient. Last updated 18.[facility] [employer] Immunizations Name Administration Dates Next Due INFLUENZA VACCINE, HIGH-DOSE , QUADR. (FLUZONE HIGH-DOSE QUADRIVALENT; 65Y+), 0.7 ML (HD-IIV4) 01/25/2020 Social History Tobacco Use Types Packs/Day Years Used Date Smoking Tobacco: Never Assessed Sex and Gender Information Value Date Recorded Sex Assigned at Not on file Gender Identity Not on file Sexual Orientation Not on file Plan of Treatment Not on file Care Teams Clinical Trial Specialist Relationship Specialty Start Date End Date Endy Garcia MD [address] [facility] [address] [place] [address] PCP - General 03/22/20
--- OUTSIDE RECORDS SUMMARY | 2024-07-17 14:12 | XMS_ITS | Encounter Summary ---
Author Organization [facility] Address [address] [place] [address] Care Team Providers Care Scenic Arts Supervisor Name Role Phone Endy Garcia MD Primary Care Provider [phone] Angelo Galvan DO Primary Care Provider [phone] Endy Garcia MD Primary Care Provider [phone] Encounter Details Date Type Department Care Team (Late st Contact Info) Description 11/28/2018 Lab Requisition [facility] DermPath Lab [address] [place] [address] Raymond [place] [address] Social History Tobacco Use Types [...] AM CDT) Case Report Dermatopathology Report Case: [id number] Authorizing Provider: Raymond Aguero MD Collected: 11/27/2018 [...] of midline. The specimen consists of a [id number] excision, bisected. Jar 0. 3:44 PM CDT [...] purposes. Billing Codes Specimen Charges Stain Charges [id number] 1 3:44 PM CDT DERMATOPATHOLOGY LABORATORY Embedded Images 3:44 PM CDT DERMATOPATHOLOGY LABORATORY Pathology/Cytolog y TISSUE SPECIMEN FROM SKIN / Unknown 11/27/2018 11/28/2018 11:37 AM CDT Raymond Aguero MD LAB - PATHOLOGY/CYTO LOGY ORDERABLES DERMATOPATHOLOGY LABORATORY [facility] - Department of Dermatology [address] [place] [address] 5th Floor Lab [address] [phone] documented in this encounter Visit Diagnoses Not on filedocumented in this encounter Care Teams Scenic Arts Supervisor Relationship Specialty Start Date End Date Endy Garcia MD [address] [facility] [address] [place] [address] PCP - General 10/31/18 01/24/20 Angelo Galvan DO [address] [place] [address] PCP - General Internal Medicine 01/25/20 03/21/20 Endy Garcia MD [address] [facility] [place] [address] PCP - General 03/22/20 documented as of this encounter
--- OUTSIDE RECORDS SUMMARY | 2024-07-17 14:12 | XMS_ITS | Clinical Summary ---
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 Aortic valve disorder 2014 Overview (02/29/2024): Aortic valve disorder Cephalalgia 05/30/2013 Small cell carcinoma of lung 05/29/2013 Encounters Date Type Department Care Team Description 07/01/2024 External Device Data [facility] ABSTRACTION Provider, Abstract 06/17/2024 External Device Data [facility] ABSTRACTION Provider, Abstract 06/10/2024 External Device Data [facility] ABSTRACTION Provider, Abstract 06/04/2024 External Device Data ST[facility] ABSTRACTION Provider, Abstract 06/04/2024 External Device Data ST[facility] ABSTRACTION Provider, Abstract 05/20/2024 10:00 AM LINE FIXER Video Visit [facility]FECT[facility] [place] [address] [facility] [address] [place] [address] Jorge Su DO 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) from Last 3 Months Immunizations [...] Comments Blood Pressure 146/72 03/18/2024 10:38 AM LINE FIXER Pulse 89 03/18/2024 10:38 AM LINE FIXER Temperature 37 C (98.6 F) 03/18/2024 10:38 AM LINE FIXER Respiratory Rate 20 02/29/2024 12:36 PM CDT Oxygen Saturation 100% 02/29/2024 12:36 PM CDT Inhaled Oxygen Concentration - - Weight 73.5 kg (162 lb) 03/18/2024 10:38 AM LINE FIXER Height 167.6 cm (5' 6 ) 03/18/2024 10:38 AM LINE FIXER Body Mass Index 26.15 03/18/2024 10:38 AM LINE FIXER Plan of Treatment Upcoming Encounters Date Type Department Care Team (Late st Contact Info) Description 09/16/2024 9:30 AM CDT Office Visit [facility] INFECTIOUS DISEASE [place] [address] [facility] [address] [place] [address] Jorge Su, [address] [facility] [facility] [address] [place] [address] Health Maintenance Due Date Last Done Comments DTAP/TDAP/TD VACCINES (1 - Tdap) 1959 PNEUMOCOCCAL VACCINE 50+ YEA RS (1 of 2 - PCV) 1957 RSV VACCINE (60+ or ) (1 - 1-dose 75+ series) 2013 ZOSTER VACCINE (2 of 3) 06/12/2017 04/17/2017 INFLUENZA VACCINE (#1) 2023 , 01/25/2020, 01/25/2020, Additional history exists Medicare Advantage ([place]) Preventative Visit/Annual Wellness Visit 05/14/2024 Medical Devices Implanted Type Area Wash House Worker Device Identifier Shelf Expiration Date Model / Serial / Lot 1 Gm Surgical Powder Activated Collagen Implanted:Qty: 1 on 02/28/2024 by Ky Deng MD at [facility] Right: Knee [facility] WCI-01-SAC RXP / / Description:1X ADD LG Loop Recorder Right Total Knee Insurance AETNA O [facility] Address: [address] [address] RX AETNA Medicare Part D Advance Directives For more information, please contact: [phone] * Full Code (Latest Code Status on File) Date Activated Date Inactivated Comments 02/28/2024 12:42 PM 02/29/2024 4:41 PM * Full Code Date Activated Date Inactivated Comments 02/28/2024 5:58 AM 02/28/2024 12:42 PM * Full Code Date Activated Date Inactivated Comments 02/10/2024 10:39 PM 02/15/2024 6:51 PM
--- OUTSIDE RECORDS SUMMARY | 2024-07-17 14:12 | XMS_ITS | Patient Health Summary ---
Author Organization [facility] Address [address] [place] [address] Care Team Providers Care Manager Of Health Name Role Phone Endy Garcia MD Primary Care Provider [phone] Note from [facility],non-owned Affiliates and Associated Physician Practices is amultiple site organization consisting of ambulatory clinics and hospital sitesin [place], [place], [place] and [place]. This disclosure is being madepursuant to the Care Everywhere program and may not contain all information available regarding this patient. Last updated 18.[facility] Immunizations * INFLUENZA VACCINE, HIGH-DOSE, QUADR. (FLUZONE [...] is included. Case Report Dermatopathology Report Case: [id number] Authorizing Provider: Raymond Aguero MD Collected: 11/27/2018 [...] of midline. The specimen consists of a [id number] excision, bisected. Jar 0. 3:44 PM CDT [...] characteristic determined by the Dermatopathology Laboratory at [facility], directed by Dr. Gris Ramirez. These tests need not be, and therefore are not, approved by the [place] Food and Drug Administration. The tests are used for clinical purposes. Billing Codes Specimen Charges Stain Charges [id number] 1 3:44 PM CDT DERMATOPATHOLOGY LABORATORY Embedded Images 3:44 PM CDT DERMATOPATHOLOGY LABORATORY Pathology/Cytolog y TISSUE SPECIMEN FROM SKIN / Unknown 11/27/2018 11/28/2018 11:37 AM CDT Raymond Aguero MD LAB - PATHOLOGY/CYTO LOGY ORDERABLES DERMATOPATHOLOGY LABORATORY [facility] - Department of Dermatology [address] [place] [address], 5th Floor Lab [address] [phone] Care Teams Manager Of Health Relationship Specialty Start Date End Date Endy Garcia MD [address] [facility] [address] [place] [address] PCP - General 03/22/20
--- OUTSIDE RECORDS SUMMARY | 2024-07-17 14:12 | XMS_ITS | Encounter Summary ---
Author Organization [facility] Address [address] [place] [address] Phone Care Team Providers Care Watch Assembly Instructor Name Role Phone Angelo Galvan DO Primary Care Provider [phone] Arnold Fernández MD Primary Care Prov ider [...] on file Legal Sex Male 11:58 PM FURNACE MECHANIC HELPER Gender Identity Not on file Sexual Orientation [...] documented as of this encounter Care Teams Watch Assembly Instructor Relationship Specialty Start Date End Date Angelo Galvan DO PCP - General Internal Medicine 08/31/17 02/09/24 Arnold Fernández MD [address] [place] [address] PCP - General Family Medicine 02/10/24 documented as of this encounter
--- OUTSIDE RECORDS SUMMARY | 2024-07-17 14:12 | XMS_ITS | Referral Summary ---
Author Organization [facility] [address] Address [address] [place] [address] Care Team Providers Care Special Tax Auditor Name Role Phone Arnold Fernández MD Primary Care Prov ider Encounters Date Type Department Care Team Description 05/28/2024 Telephone [facility] Vascular and Ve[facility] Surgery [address] [place] [address] Tila Hawkins MD 05/21/2024 10:00 AM DRUM TENDER Ancillary Procedure [facility] Vascular and Vein Surgery at [address] [place] [address] Infrarenal abdominal aortic aneurysm (AAA) without rupture 04/24/2024 Telephone [facility]ascular [facility] Ve[facility] [address] [place] [phone] Elena Torrez MA 04/24/2024 Telephone [facility]ascular [facility] Vein Surgery [address] [place] [address] Odalys Duarte 04/24/2024 Telephone [facility] Vascular and Vein Surgery [address] [place] [address] Elena Torrez MA 04/24/2024 Orders Only [facility] Vascular [facility] Ve[facility] Surgery [address] [place] [address] Tila Hawkins MD Infrarenal abdominal aortic aneurysm (AAA) without rupture (Primary Dx) from Last 3 Months Allergies [...] (02/05/2018): Added automatically from request for surgery [id number] Hemorrhoids 09/11/2017 Prostate cancer 09/11/2017 Double vision 06/06/2017 Blurry vision 06/06/2017 Chronic anticoagulation 06/06/2017 Nonrheumatic aortic valve stenosis 06/06/2017 Abdominal aortic aneurysm (AAA) without rupture 06/06/2017 Assessment & Plan (05/02/2023 10:22 AM DRUM TENDER): 3.1 cm infrarenal abdominal aortic aneurysms, discussed finding with the patient with the recommendation for intervention at 5.5 cm or with rapid growth. Recommend risk factor modification with ASA, statin therapy in good blood pressure control. Discussed the importance of ongoing surveillance with repeat aortoiliac duplex in 1 year. Dizziness 06/06/2017 Hyperlipidemia LDL goal <70 06/06/2017 Assessment & Plan (05/02/2023 10:22 AM DRUM TENDER): Stable continue Crestor 10 mg. History of [...] 2014 Assessment & Plan (05/02/2023 10:21 AM DRUM TENDER): Stable continue Eliquis 5 mg. Cephalalgia 05/30/2013 Small cell carcinoma of lung 05/29/2013 Chronic obstructive pulmonary disease Immunizations Immunization Administration Dates Next Due Influenza, [...] on file Legal Sex Male 11:58 PM DRUM TENDER Gender Identity Not on file Sexual Orientation [...] on file Medical Devices Implanted Type Area Sporting Goods Sales Associate Device Identifier Shelf Expiration Date Model / Serial / Lot [employer] [id number] Angio-Seal Vip Bondek-Plus 6fr .035in 70cm Hemostatic Latex Free - [id number] Implanted:Qty: 1 on 02/12/2018 by Tiara Rodriguez MD at [facility] [employer] 10/11/2018 [id number] / / [id number] Procedures Procedure Name Priority Date/Time Associated Diagnosis Comments US DUPLEX SCAN AORTA, IVC ILIAC COMPLETE Schedule Routine, Read Routine (OP Routine) 05/21/2024 10:47 AM DRUM TENDER Infrarenal abdominal aortic aneurysm (AAA) without rupture from Last 3 Months Results * US Duplex Scan Aorta, IVC Iliac Complete (05/21/2024 10:47 AM DRUM TENDER) LV EF % CONS SCIMAGE Anatomical Region Laterality Modality Vascular N/A Ultrasound 05/21/2024 10:0 0 AM DRUM TENDER Narrative 05/23/2024 1:19 PM DRUM TENDER Vascular & Vein Surgery [address] [place] [address]. [place] [address] Abdominal Aortic Duplex Ultrasound Report Patient Name: DAVIDE THOMSON W : 1940 Study Date: 05/21/2024 10:00:05 AM Gender: M Mother Superior: Location: [facility] Ref Provider: TILA HAWKINS Quality: [...] Tila Hawkins MD Thea 05/23/2024 1:18:34 PM DRUM TENDER Procedure Note Tila Hawkins MD - 05/23/2024 Vascular & Vein Surgery [address] [place] [address] Abdominal Aortic Duplex Ultrasound Report Patient Name: DAVIDE THOMSON W : 1940 Study Date: 05/21/2024 10:00:05 AM Gender: M Mother Superior: Location: [facility] Provider: TILA HAWKINS Quality: Adequate Order Provider: [...] By: MD ROSALIA Jaffe 05/23/2024 1:18:34 PM DRUM TENDER us Tila Hawkins MD IMG US PROCEDURES Final Result from Last 3 Months Insurance AETNA MEDICARE MEDICARE SOLUTIONS Advance Directives For more information, please contact: [phone] * Full Code (Latest Code Status on File) Date Activated Date Inactivated Comments 02/12/2018 1:31 PM 02/12/2018 5:35 PM * Full Code Date Activated Date Inactivated Comments 10/12/2017 2:15 PM 10/13/2017 5:10 PM Care Teams Special Tax Auditor Relationship Specialty Start Date End Date Arnold Fernández MD [address] [place] [address] PCP - General Family Medicine 02/10/24
--- OUTSIDE RECORDS SUMMARY | 2024-07-17 14:12 | XMS_ITS | Continuity of Care Document ---
Author Organization [facility] Address [address] [place] [address] Phone Care Team Providers Care Reel Fed Printer Name Role Phone Ed Flores Unavailable Unavailable [...] Diagnoses Date Provider Providers Copied on Encounter formerly [facility], [address], [place], [place], [id number], [place] tel:[phone] [facility] No Information Hebert-0 8-201 0 Doisy Edjunie. [address], [place], [address], [place]. tel:[phone] [facility], [address], [place], [place], [id number], [place] tel:[phone] [facility] No Information Apr-0 9-200 9 Das OD Layo. [address], [place], [place], [facility], [place]. tel:[phone] [facility], [address], [place], [place], [id number], [place] tel:[phone] [facility] No Information Mar-2 5-200 9 Doisy Edjunie. [address] [facility] , [address], [place], [facility], [place]. tel:[phone] [facility], [address], [place], [place], [id number], [place] tel:[phone] [facility] No Information Mar-2 4-200 9 Doisy Edjunie. [address], [place], [facility], [place]. tel:[phone] [facility], [address], [place], [place], [address], [place] tel:[phone] [facility] No Information Mar-1 8-200 9 Doisy Edjunie. [address], [place], [address], [place]. tel:[phone] Referring Provider: Ed Pérez, [facility] [address], [place], [place], [facility]. tel:[phone] [facility], [address], [place], [place], [id number], [place] tel:[phone] [facility] No Information Mar-0 4-200 9 Mark Ward. [address] [facility] , [address], [place], [address], [place]. tel:[phone] [facility], [address] [place] [address] [address], [place], [place], [address], [place] tel:[phone] [facility] No Information Mar-0 3-200 9 Mark Ward. [address], [place], [facility], [place]. tel:[phone] Office/outpat ient Visit, [facility], [address] [place] [address] [address], [place], [place], [id number], [place] tel:[phone] [facility] [place] No Information Feb-2 3-200 9 Mark Ward. [address] [facility] [address] , [address], [place], [facility], [place]. tel:[phone] Referring Provider: Ed Pérez, [address] [place], [place] [address], [place], [place], [facility]. tel:[phone] Office/outpat ient Visit, [facility], [address] [place] [address] [address], [place], [place], [id number], [place] tel:[phone] [facility] No Information Nov-1 0-200 8 Mark Ward. [address], [place], [facility], [place]. tel:[phone] [facility], [address] [place] [address] [address], [place], [place], [address], [place] tel:[phone] [facility] No Information Oct-2 4-200 8 Das OD Layo. [address] [facility] , [address], [place], [facility], [place]. tel:[phone] Office/outpat ient Visit, [facility], [address] [place] [address] [address], [place], [place], [address], [place] tel:[phone] [facility] No Information Sep-2 7-200 7 Das OD Layo. [address] [facility] , [address], [place], [facility], . tel:[phone] Office/outpat ient Visit, [facility], [address] [place] [address] [address], [place], [place], [id number], [place] tel:[phone] [facility] No Information Sep-2 5-200 7 Das OD Layo. [address] [facility] , [address], [place], [address], . tel:[phone] Office/outpat ient Visit, [facility], [address] [place] [address] [address], [place], [place], [id number], tel:[phone] [facility] [place] No Information Nov-1 1-200 7 Das OD Layo. [address] [facility] [address], [address], [place], [address], . tel:[phone] formerly [facility], [address] [place] [address] [address], [place], [place], [id number], tel:[phone] [facility] No Information Mitchell-2 7-200 7 Das OD Layo. [address] [facility] , [address], [place], [facility], [place]. tel:[phone] Family History Family Member Type Diagnosis Age At Onset No Information Payers Payer name Insurance type Covered green party ID Authoriza tishira(s) [place] [id number] [facility]ly [facility] [id number] Social History Type Description Quantity Date Captured [...]
== END 2024-07-17 12:54 | disposition home or self-care (01) ==
PROVIDERS: PCP Family Medicine Adolescent Medicine; Visit Provider Internal Medicine
DX: E27.8 Other specified disorders of adrenal gland (principal); E04.2 Nontoxic multinodular goiter
CPT/HCPCS: 99199

== ENCOUNTER 2024-10-22 10:17 | Outpatient (CLI) | payer MEDICARE, SELFPAY ==
--- NOTE | 2024-10-22 10:44 | ECG_ITS ---
Test Date: 2024-10-22 10:54:50 Measurements Intervals [place] Rate: 91 P: 83 GA: 197 QRS: 69 QRSD: 131 T: 49 QT: 376 QTc: 463 Interpretive Statements SINUS RHYTHM RIGHT BUNDLE BRANCH BLOCK BASELINE ARTIFACT- I, II, III, AVR, AVL, AVF, V3-V6 ABNORMAL ECG No previous ECG available for comparison Electronically Signed On 10-22-2024 10:58:54 CDT by Marc Flowers D.O.
--- OUTSIDE RECORDS SUMMARY | 2024-10-22 11:53 | XMS_ITS | Continuity of Care Document ---
Author Organization [facility] Address [address] [place] [address] Phone Care Team Providers Care Transportation Department Supervisor Name Role Phone Ed Flores Unavailable Unavailable [...] Copied on Encounter [facility], [address], [place], [place], [address], [place] tel:[phone] [facility] No Information Hebert-0 8-201 0 Doisy Edjunie. [address] , [address], [place], [address], [place]. tel:[phone] [facility], [address], [place], [place], [address], [place] tel:[phone] [facility] No Information Apr-0 9-200 9 Das OD Layo. [address] , [address], [place], [place], [facility], [place]. tel:[phone] [facility], [address], [place], [place], [address], [place] tel:[phone] [facility] No Information Mar-2 5-200 9 Doisy Edjunie. [address] , [address], [place], [place], [facility], [place]. tel:[phone] [facility], [address], [place], [place], [address], [place] tel:[phone] [facility] No Information Mar-2 4-200 9 Doisy Edjunie. [address] , [address], [place], [facility], [place]. tel:[phone] [facility], [address], [place], [place], [address], [place] tel:[phone] [facility] No Information Mar-1 8-200 9 Doisy Edjunie. [address] , [address], [place], [address], [place]. tel:[phone] Referring Provider: Ed Pérez, [facility] [address], [place], [place], [facility]. tel:[phone] [facility], [address], [place], [place], [address], [place] tel:[phone] [facility] No Information Mar-0 4-200 9 Mark Ward. [address] , [address], [place], [address], [place]. tel:[phone] [facility], [address] [place] [address] [address], [place], [place], [address], [place] tel:[phone] [facility] No Information Mar-0 3-200 9 Mark Ward. [address] , [address], [place], [facility], [place]. tel:[phone] Office/outpat ient Visit, [facility], [address] [place] [address] [address], [place], [place], [address], [place] tel:[phone] [facility] No Information Feb-2 3-200 9 Mark Ward. [address] , [address], [place], [facility], [place]. tel:[phone] Referring Provider: Ed Pérez, [address] [place], [place] [address], [place], [facility]. tel:[phone] Office/outpat ient Visit, [facility], [address] [place] [address] [address], [place], [place], [address], [place] tel:[phone] [facility] No Information Nov-1 0-200 8 Mark Ward. [address] , [address], [place], [facility], [place]. tel:[phone] [facility], [id number] [place] [address] [address], [place], [place], [address], [place] tel:[phone] [facility] No Information Oct-2 4-200 8 Das OD Layo. [address] , [address], [place], [facility], [place]. tel:[phone] Office/outpat ient Visit, [facility], [address] [place] [address] [address], [place], [place], [address], [place] tel:[phone] [facility] No Information Sep-2 7-200 7 Das OD Layo. [address] , [address], [place], [facility], . tel:[phone] Office/outpat ient Visit, [facility], [address] [place] [address] [address], [place], [place], [address], [place] tel:[phone] [facility] No Information Sep-2 5-200 7 Das OD Layo. [address] , [address], [place], [address], . tel:[phone] Office/outpat ient Visit, [facility], [address] [place] [address] [address], [place], [place], [id number], tel:[phone] [facility] No Information Nov-1 1-200 7 Das OD Layo. [address], [address], [place], [address], . tel:[phone] [facility], [address] [place] [address] [address], [place], [place], [id number], tel:[phone] [facility] No Information Mitchell-2 7-200 7 Das OD Layo. [address] , [address], [place], [place], [facility], [place]. tel:[phone] Family History Family Member Type Diagnosis Age At Onset No Information Payers Payer name Insurance type Covered alliance party ID Authoriza tishira(s) [place] [id number] [facility] [id number] Social History Type Description Quantity Date Captured [...]
--- OUTSIDE RECORDS SUMMARY | 2024-10-22 11:54 | XMS_ITS | Clinical Summary ---
Author Organization [facility] Address [address] [place] [address] Phone Care Team Providers Care District Customs Director Name Role Phone Unavailable Primary Care Provider [...] by subcutaneous injection every 6 months. Active metFORMIN (GLUCOPHAGE XR) 500 mg Extended Release 24 hour tablet Take 500 mg by mouth daily with breakfast. Active Farxiga 5 mg Tablet Take 5 mg by mouth daily. 5 Active cefadroxil (DURICEF) 500 mg capsule Take 1 Capsule (500 mg) by mouth daily. 30 Capsule 5 5 Active Active Problems Problem Noted Date Diagnosed Date Chronic obstructive pulmonary disease 02/29/2024 Pyogenic arthritis of right knee joint 4 S/P total knee arthroplasty, right 02/10/2024 Paroxysmal atrial fibrillation 02/10/2024 Primary hypertension 02/10/2024 Stage 3a chronic kidney disease 02/10/2024 Prostate cancer 09/11/2017 Nonrheumatic aortic valve stenosis 06/06/2017 Overview (02/29/2024): Added automatically from request for surgery [id number] Hyperlipidemia LDL goal <70 06/06/2017 History of tobacco abuse 06/06/2017 Abdominal aortic aneurysm (AAA) without rupture 06/06/2017 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 Aortic valve disorder 2014 Overview (02/29/2024): Aortic valve disorder Cephalalgia 05/30/2013 Small cell carcinoma of lung 05/29/2013 Encounters Date Type Department Care Team Description 10/02/2024 External Device Data [facility] ABSTRACTION Provider, Abstract 09/18/2024 Refill [facility] [place] [address] [facility] [address] [place] [address] Jorge Su DO 09/16/2024 9:30 AM CDT Office Visit [facility] [place] [facility] [address] [facility] [address] [place] [address] Jorge Su DO 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) 08/26/2024 External Device Data [facility] ABSTRACTION Provider, Abstract 08/12/2024 External Device Data [facility] ABSTRACTION Provider, Abstract 07/30/2024 External Device Data [facility] ABSTRACTION Provider, Abstract from Last 3 Months Immunizations Immunization Administration [...] No 02/28/2024 Food Insecurity Answer Date Recorded Patient needs follow up regardin 09/16/2024 Transportation Needs Answer Date Record ed Patient needs follow up regardin 09/16/2024 Housing Stability Answer Date Recorded Social/Environmental Concerns No concerns Utility Needs Answer Date Recorded Patient needs follow up regardin 09/16/2024 Sex and Gender Information Value Date Recorded Sex Assigned at Not on file Legal Sex Male 4:47 PM CDT Gender Identity Not on file Sexual Orientation Not on file Last Filed Vital Signs Vital Sign Reading Time Taken Comments Blood Pressure 119/70 09/16/2024 9:21 AM CDT Pulse 76 09/16/2024 9:21 AM CDT Temperature 36.7 C (98 F) 09/16/2024 9:21 AM CDT Respiratory Rate 20 02/29/2024 12:36 PM CDT Oxygen Saturation 100% 02/29/2024 12:36 PM CDT Inhaled Oxygen Concentration - - Weight 64.9 kg (143 lb) 09/16/2024 9:21 AM CDT Height 167.6 cm (5' 6) 09/16/2024 9:21 AM CDT Body Mass Index 23.08 09/16/2024 9:21 AM CDT Plan of Treatment Upcoming Encounters Date Type Department Care Team (Late st Contact Info) Description 03/17/2025 9:30 AM DREDGE LEVER OPERATOR Office Visit [facility] INFECTIOUS DISEASE [place] [address] [facility] [address] [place] [address] Jorge Su, [address] [facility] [address] [place] [address] Health Maintenance Due Date Last Done Comments DTAP/TDAP/TD VACCINES (1 - Tdap) 1959 PNEUMOCOCCAL VACCINE 50+ YEA RS (1 of 2 - PCV) 1957 RSV VACCINE (60+ or ) (1 - 1-dose 75+ series) 2013 ZOSTER VACCINE (2 of 3) 06/12/2017 04/17/2017 INFLUENZA VACCINE (#1) 2023 , 01/25/2020, 01/25/2020, Additional history exists Medical Devices Implanted Type Area Qa Software Tester Device Identifier Shelf Expiration Date Model / Serial / Lot 1 Gm Surgical Powder Activated Collagen Implanted:Qty: 1 on 02/28/2024 by Ky Deng MD at [facility] RXP / / Description:1X ADD LG Loop Recorder Right Total Knee Insurance [employer] [facility] Address: [address] [address] RX [employer] Medicare Part D Advance Directives For more information, please contact: [phone] * Full Code (Latest Code Status on File) Date Activated Date Inactivated Comments 02/28/2024 12:42 PM 02/29/2024 4:41 PM * Full Code Date Activated Date Inactivated Comments 02/28/2024 5:58 AM 02/28/2024 12:42 PM * Full Code Date Activated Date Inactivated Comments 02/10/2024 10:39 PM 02/15/2024 6:51 PM
--- OUTSIDE RECORDS SUMMARY | 2024-10-22 11:54 | XMS_ITS | Patient Health Record ---
Author Organization [facility] [employer] Address [address] [place] [address] Care Team Providers Care Machine Brusher Name Role Phone Arnold Fernández MD Primary Care Provider Mariam Jm Medrano Unavailable [phone] Allergies No Known Allergies Reason For Referral No Information Medications Medication SIG (Take, Route, Frequency, Duration) Notes Start Date End Date Status busPIRone HCl 5 MG Take 1 tablet by jessika th twice daily for 90 Active metFORMIN HCl ER 500 MG Oral for 90 Days Active Furosemide 20 MG TAKE 1 TABLET BY JESSIKA ONCE DAILY Oral for 90 Days Active busPIRone HCl 10 MG 1 tablet Oral Twice a day for 90 days Active Trelegy Ellipta 100-62.5-25 MCG/ACT Inhalation for 90 Days Active Eliquis 5 MG Oral for 90 Days Active dilTIAZem HCl ER Coated Beads 120 MG Oral for 30 Days Not-Taking Venlafaxine HCl ER 150 MG 1 capsule ever y motning Oral Once a day for 90 days Active Tamsulosin HCl 0.4 MG TAKE 1 CAPSULE BY MOUTH ONCE DAILY Oral for 90 Days Active dilTIAZem HCl ER Coated Beads 120 MG Oral for 30 Days Not-Taking dilTIAZem HCl ER Coated Beads 120 MG TAKE 1 CAPSULE BY MOUTH ONCE DAILY Oral for 30 Days Active Cefadroxil 500 MG TAKE 1 CAPSULE BY MO [facility] EVERY 12 HOURS Oral for 30 Days Active Immunizations Vaccine Route Administration Date Status [place] galindo Pfizer-[employer]ion[employer] Covid-19 Vac cine 1st dose Unknown 09/25/2021 Administered Pfizer [employer]ion[employer] Covid-19 Vac cine 2nd dose Unknown 07/13/2020 Administered Pfizer [employer] Covid-19 Vac cine 2nd dose Unknown 08/03/2020 Administered Pfizer [employer] Covid-19 Vac cine 2nd dose Unknown 02/26/2021 Administered Influenza, high dose seasonal Unknown 03/27/2017 Admini stered Influenza, high dose seasonal Unknown 02/23/2018 Admini stered Influenza, high dose seasonal Unknown 02/15/2019 Admini stered Influenza, high dose seasonal Unknown 01/25/2020 Admini stered Influenza virus vaccine, quadrivalent (IIV4), split virus, 0.25 mL dosage Unknown 02/24/2018 Administered Influenza virus vaccine, quadrivalent (IIV4), split virus, 0.25 mL dosage Unknown 02/15/2019 Administered Social History Tobacco Use: Social History Observation Description Date Details (start date - stop date) Former Smoker NA - NA Sex Assigned At : Social History Observation Description Sex Assigned At Male Tobacco Control (Standard) Question Answer Notes Tobacco use: Former smoker AUDIT-C (Standard) Question Answer Notes Did you have a drink containing alcohol in the p ast year? No Points 0 Interpretation Negative Problems Problem Type SNOMED Code ICD Code Onset Dates Problem Status W/U Status Risk Notes Problem Recurrent major depression in full remission (66834100) Major depressive disorder, recurrent, in full remission (F33.42) 09/12/19 24 Active confirmed Problem Primary insomnia (2677984) Primary insomnia (F51.01) 09/12/19 24 Active confirmed Problem Generalized anxiety disorder (22299055) DIANA (generalized anxiety disorder) (F41.1) Active confirmed Problem Chronic obstructive pulmonary disease (24837503) Chronic obstructive pulmonary disease (J44.9) 11/20/19 19 Active confirmed Problem Ex-cigarette smoker (finding) (805995993) Former cigarette smoker (Z87.891) 04/25/20 16 Active confirmed Problem Hyperlipidemia (99080637) Hyperlipidemia LDL goal <70 (E78.5) 06/06/19 18 Active confirmed Vital Signs Heart Rate 94 /min 09/01/2024 Height-cm 167.59 cm 09/01/2024 Blood pressure diastolic 63 mm Hg 09/01/2024 Weight-kg 64.86 kg 09/01/2024 Height 65.98 in 09/01/2024 Blood pressure systolic 112 mm Hg 09/01/2024 Weight 143 lbs 09/01/2024 BMI 23.09 kg/m2 09/01/2024 Encounters Encounter Location Date Provider Diagnosis [employer] [place] [address] [facility] [address] [address] 11/12/2023 Jm Atkinson Prostate cancer C61 ; Major depressive disorder, recurrent, in full remission F33.42 ; 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 ; Hyperlipidemia LDL goal <70 E78.5 ; CUEVAS (dyspnea on exertion) R06.09 ; Abdominal aortic aneurysm (AAA) without rupture I71.40 ; Atrial fibrillation (CMS/HCC) I48.91 ; Former cigarette smoker Z87.891 ; 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 ; Chronic obstructive pulmonary disease J44.9 ; Primary insomnia F51.01 ; Mild cognitive impairment, so stated G31.84 and Major neurocognitive disorder 294.[address] [employer] [address] [address] 06/09/2024 Jm Atkinson DIANA (generalized anx iety disorder) F41.1 ; Major depressive disorder, recurrent, in full remission F33.42 ; Hyperlipidemia LDL goal <70 E78.5 ; Former cigarette smoker Z87.891 ; Chronic obstructive pulmonary disease J44.9 and Primary insomnia F51.[address] [employer] [address] [address] 09/01/2024 Jm Atkinson Encounter for screen ing for depression Z13.31 ; Encounter for screening for cardiovascular disorders Z13.6 ; DIANA (generalized anxiety disorder) F41.1 ; Major depressive disorder, recurrent, in full remission F33.42 ; Hyperlipidemia LDL goal <70 E78.5 ; Former cigarette smoker Z87.891 ; Chronic obstructive pulmonary disease J44.9 and Primary insomnia F51.01 [employer] [place] [address] [facility] [address] [address] 05/27/2024 Jm Atkinson Assessments Encounter Date Diagnosis (ICD Code) Assessment Notes Treatment Notes Treatment Clinical Notes Section Notes 06/09/2024 DIANA (generalized anxiety disorder) (ICD-10 - F41.1) 09/01/2024 Encounter for screening for depression (ICD-10 - Z13.31) 11/12/2023 Major depressive disorder, recurrent, in full remission (ICD-10 - F33.42) Anxiety - Assessment: The patient reports improvement in anxiety since starting buspirone. - Plan: - Continue buspirone 1 tablet twice a day for 90 days. - Follow-up in 6 months or sooner if needed. 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 - Bladder cancer: Completed treatments, recent scope satisfactory, next scope in 2 months. - Prostate cancer: PSA at 0.1, stable and satisfactory. - Plan: - Continue regular follow-ups with oncologist and urologist as scheduled. Upper Respiratory Infection - Assessment: Patient reports a persistent cold with thick mucus and coughing. - Plan: - Recommend the patient to see their primary care physician for evaluation and treatment. Macular Degeneration - Assessment: Patient receiving shots in the right eye, reports blurry vision and difficulty driving at night. - Plan: - Continue current treatment and follow-up with surgery scheduling coordinator as scheduled. - Encourage the patient to limit driving to daytime hours for safety. Sleep and Mood - Assessment: Patient reports good sleep and controlled mood. - Plan: - No changes needed at this time, continue current medications. - Follow-up in 6 months or sooner if needed. 11/12/2023 Prostate cancer (ICD-10 - C61) Prostate Cancer Screening: Care Instructions material was published Anxiety - Assessment: The patient reports improvement in anxiety since starting buspirone. - Plan: - Continue buspirone 1 tablet twice a day for 90 days. - Follow-up in 6 months or sooner if needed. 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 - Bladder cancer: Completed treatments, recent scope satisfactory, next scope in 2 months. - Prostate cancer: PSA at 0.1, stable and satisfactory. - Plan: - Continue regular follow-ups with oncologist and urologist as scheduled. Upper Respiratory Infection - Assessment: Patient reports a persistent cold with thick mucus and coughing. - Plan: - Recommend the patient to see their primary care physician for evaluation and treatment. Macular Degeneration - Assessment: Patient receiving shots in the right eye, reports blurry vision and difficulty driving at night. - Plan: - Continue current treatment and follow-up with surgery scheduling coordinator as scheduled. - Encourage the patient to limit driving to daytime hours for safety. Sleep and Mood - Assessment: Patient reports good sleep and controlled mood. - Plan: - No changes needed at this time, continue current medications. - Follow-up in 6 months or sooner if needed. 09/01/2024 Encounter for screening for cardiovascular disorders (ICD-10 - Z13.6) 06/09/2024 Hyperlipidemia LDL goal <70 (ICD-10 - E78.5) 06/09/2024 Major depressive disorder, recurrent, in full remission (ICD-10 - F33.42) 11/12/2023 History of Kaposi's sarcoma (ICD-10 - Z85.9) Anxiety - Assessment: The patient reports improvement in anxiety since starting buspirone. - Plan: - Continue buspirone 1 tablet twice a day for 90 days. - Follow-up in 6 months or sooner if needed. 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 - Bladder cancer: Completed treatments, recent scope satisfactory, next scope in 2 months. - Prostate cancer: PSA at 0.1, stable and satisfactory. - Plan: - Continue regular follow-ups with oncologist and urologist as scheduled. Upper Respiratory Infection - Assessment: Patient reports a persistent cold with thick mucus and coughing. - Plan: - Recommend the patient to see their primary care physician for evaluation and treatment. Macular Degeneration - Assessment: Patient receiving shots in the right eye, reports blurry vision and difficulty driving at night. - Plan: - Continue current treatment and follow-up with surgery scheduling coordinator as scheduled. - Encourage the patient to limit driving to daytime hours for safety. Sleep and Mood - Assessment: Patient reports good sleep and controlled mood. - Plan: - No changes needed at this time, continue current medications. - Follow-up in 6 months or sooner if needed. 11/12/2023 Hyperlipidemia LDL goal <70 (ICD-10 - E78.5) Anxiety - Assessment: The patient reports improvement in anxiety since starting buspirone. - Plan: - Continue buspirone 1 tablet twice a day for 90 days. - Follow-up in 6 months or sooner if needed. 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 - Bladder cancer: Completed treatments, recent scope satisfactory, next scope in 2 months. - Prostate cancer: PSA at 0.1, stable and satisfactory. - Plan: - Continue regular follow-ups with oncologist and urologist as scheduled. Upper Respiratory Infection - Assessment: Patient reports a persistent cold with thick mucus and coughing. - Plan: - Recommend the patient to see their primary care physician for evaluation and treatment. Macular Degeneration - Assessment: Patient receiving shots in the right eye, reports blurry vision and difficulty driving at night. - Plan: - Continue current treatment and follow-up with surgery scheduling coordinator as scheduled. - Encourage the patient to limit driving to daytime hours for safety. Sleep and Mood - Assessment: Patient reports good sleep and controlled mood. - Plan: - No changes needed at this time, continue current medications. - Follow-up in 6 months or sooner if needed. 06/09/2024 Former cigarette smoker (ICD-10 - Z87.891) 09/01/2024 DIANA (generalized anxiety disorder) (ICD-10 - F41.1) 09/01/2024 Major depressive disorder, recurrent, in full remission (ICD-10 - F33.42) 06/09/2024 Chronic obstructive pulmonary disease (ICD-10 - J44.9) 11/12/2023 CUEVAS (dyspnea on exertion) (ICD-10 - R06.09) Anxiety - Assessment: The patient reports improvement in anxiety since starting buspirone. - Plan: - Continue buspirone 1 tablet twice a day for 90 days. - Follow-up in 6 months or sooner if needed. 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 - Bladder cancer: Completed treatments, recent scope satisfactory, next scope in 2 months. - Prostate cancer: PSA at 0.1, stable and satisfactory. - Plan: - Continue regular follow-ups with oncologist and urologist as scheduled. Upper Respiratory Infection - Assessment: Patient reports a persistent cold with thick mucus and coughing. - Plan: - Recommend the patient to see their primary care physician for evaluation and treatment. Macular Degeneration - Assessment: Patient receiving shots in the right eye, reports blurry vision and difficulty driving at night. - Plan: - Continue current treatment and follow-up with surgery scheduling coordinator as scheduled. - Encourage the patient to limit driving to daytime hours for safety. Sleep and Mood - Assessment: Patient reports good sleep and controlled mood. - Plan: - No changes needed at this time, continue current medications. - Follow-up in 6 months or sooner if needed. 11/12/2023 Abdominal aortic aneurysm (AAA) without rupture (ICD-10 - I71.40) Anxiety - Assessment: The patient reports improvement in anxiety since starting buspirone. - Plan: - Continue buspirone 1 tablet twice a day for 90 days. - Follow-up in 6 months or sooner if needed. 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 - Bladder cancer: Completed treatments, recent scope satisfactory, next scope in 2 months. - Prostate cancer: PSA at 0.1, stable and satisfactory. - Plan: - Continue regular follow-ups with oncologist and urologist as scheduled. Upper Respiratory Infection - Assessment: Patient reports a persistent cold with thick mucus and coughing. - Plan: - Recommend the patient to see their primary care physician for evaluation and treatment. Macular Degeneration - Assessment: Patient receiving shots in the right eye, reports blurry vision and difficulty driving at night. - Plan: - Continue current treatment and follow-up with surgery scheduling coordinator as scheduled. - Encourage the patient to limit driving to daytime hours for safety. Sleep and Mood - Assessment: Patient reports good sleep and controlled mood. - Plan: - No changes needed at this time, continue current medications. - Follow-up in 6 months or sooner if needed. 09/01/2024 Hyperlipidemia LDL goal <70 (ICD-10 - E78.5) 06/09/2024 Primary insomnia (ICD-10 - F51.01) 09/01/2024 Former cigarette smoker (ICD-10 - Z87.891) 11/12/2023 Atrial fibrillation (CMS/HCC) (ICD-10 - I48.91) Anxiety - Assessment: The patient reports improvement in anxiety since starting buspirone. - Plan: - Continue buspirone 1 tablet twice a day for 90 days. - Follow-up in 6 months or sooner if needed. 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 - Bladder cancer: Completed treatments, recent scope satisfactory, next scope in 2 months. - Prostate cancer: PSA at 0.1, stable and satisfactory. - Plan: - Continue regular follow-ups with oncologist and urologist as scheduled. Upper Respiratory Infection - Assessment: Patient reports a persistent cold with thick mucus and coughing. - Plan: - Recommend the patient to see their primary care physician for evaluation and treatment. Macular Degeneration - Assessment: Patient receiving shots in the right eye, reports blurry vision and difficulty driving at night. - Plan: - Continue current treatment and follow-up with surgery scheduling coordinator as scheduled. - Encourage the patient to limit driving to daytime hours for safety. Sleep and Mood - Assessment: Patient reports good sleep and controlled mood. - Plan: - No changes needed at this time, continue current medications. - Follow-up in 6 months or sooner if needed. 11/12/2023 Former cigarette smoker (ICD-10 - Z87.891) Anxiety - Assessment: The patient reports improvement in anxiety since starting buspirone. - Plan: - Continue buspirone 1 tablet twice a day for 90 days. - Follow-up in 6 months or sooner if needed. 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 - Bladder cancer: Completed treatments, recent scope satisfactory, next scope in 2 months. - Prostate cancer: PSA at 0.1, stable and satisfactory. - Plan: - Continue regular follow-ups with oncologist and urologist as scheduled. Upper Respiratory Infection - Assessment: Patient reports a persistent cold with thick mucus and coughing. - Plan: - Recommend the patient to see their primary care physician for evaluation and treatment. Macular Degeneration - Assessment: Patient receiving shots in the right eye, reports blurry vision and difficulty driving at night. - Plan: - Continue current treatment and follow-up with surgery scheduling coordinator as scheduled. - Encourage the patient to limit driving to daytime hours for safety. Sleep and Mood - Assessment: Patient reports good sleep and controlled mood. - Plan: - No changes needed at this time, continue current medications. - Follow-up in 6 months or sooner if needed. 09/01/2024 Chronic obstructive pulmonary disease (ICD-10 - J44.9) 09/01/2024 Primary insomnia (ICD-10 - F51.01) 11/12/2023 Small cell carcinoma of lung (ICD-10 - C34.90) Anxiety - Assessment: The patient reports improvement in anxiety since starting buspirone. - Plan: - Continue buspirone 1 tablet twice a day for 90 days. - Follow-up in 6 months or sooner if needed. 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 - Bladder cancer: Completed treatments, recent scope satisfactory, next scope in 2 months. - Prostate cancer: PSA at 0.1, stable and satisfactory. - Plan: - Continue regular follow-ups with oncologist and urologist as scheduled. Upper Respiratory Infection - Assessment: Patient reports a persistent cold with thick mucus and coughing. - Plan: - Recommend the patient to see their primary care physician for evaluation and treatment. Macular Degeneration - Assessment: Patient receiving shots in the right eye, reports blurry vision and difficulty driving at night. - Plan: - Continue current treatment and follow-up with surgery scheduling coordinator as scheduled. - Encourage the patient to limit driving to daytime hours for safety. Sleep and Mood - Assessment: Patient reports good sleep and controlled mood. - Plan: - No changes needed at this time, continue current medications. - Follow-up in 6 months or sooner if needed. 11/12/2023 Chronic obstructive pulmonary disease (ICD-10 - J44.9) Anxiety - Assessment: The patient reports improvement in anxiety since starting buspirone. - Plan: - Continue buspirone 1 tablet twice a day for 90 days. - Follow-up in 6 months or sooner if needed. 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 - Bladder cancer: Completed treatments, recent scope satisfactory, next scope in 2 months. - Prostate cancer: PSA at 0.1, stable and satisfactory. - Plan: - Continue regular follow-ups with oncologist and urologist as scheduled. Upper Respiratory Infection - Assessment: Patient reports a persistent cold with thick mucus and coughing. - Plan: - Recommend the patient to see their primary care physician for evaluation and treatment. Macular Degeneration - Assessment: Patient receiving shots in the right eye, reports blurry vision and difficulty driving at night. - Plan: - Continue current treatment and follow-up with surgery scheduling coordinator as scheduled. - Encourage the patient to limit driving to daytime hours for safety. Sleep and Mood - Assessment: Patient reports good sleep and controlled mood. - Plan: - No changes needed at this time, continue current medications. - Follow-up in 6 months or sooner if needed. 11/12/2023 Primary insomnia (ICD-10 - F51.01) Anxiety - Assessment: The patient reports improvement in anxiety since starting buspirone. - Plan: - Continue buspirone 1 tablet twice a day for 90 days. - Follow-up in 6 months or sooner if needed. 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 - Bladder cancer: Completed treatments, recent scope satisfactory, next scope in 2 months. - Prostate cancer: PSA at 0.1, stable and satisfactory. - Plan: - Continue regular follow-ups with oncologist and urologist as scheduled. Upper Respiratory Infection - Assessment: Patient reports a persistent cold with thick mucus and coughing. - Plan: - Recommend the patient to see their primary care physician for evaluation and treatment. Macular Degeneration - Assessment: Patient receiving shots in the right eye, reports blurry vision and difficulty driving at night. - Plan: - Continue current treatment and follow-up with surgery scheduling coordinator as scheduled. - Encourage the patient to limit driving to daytime hours for safety. Sleep and Mood - Assessment: Patient reports good sleep and controlled mood. - Plan: - No changes needed at this time, continue current medications. - Follow-up in 6 months or sooner if needed. 11/12/2023 Mild cognitive impairment, so stated (ICD-10 - G31.84) Anxiety - Assessment: The patient reports improvement in anxiety since starting buspirone. - Plan: - Continue buspirone 1 tablet twice a day for 90 days. - Follow-up in 6 months or sooner if needed. 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 - Bladder cancer: Completed treatments, recent scope satisfactory, next scope in 2 months. - Prostate cancer: PSA at 0.1, stable and satisfactory. - Plan: - Continue regular follow-ups with oncologist and urologist as scheduled. Upper Respiratory Infection - Assessment: Patient reports a persistent cold with thick mucus and coughing. - Plan: - Recommend the patient to see their primary care physician for evaluation and treatment. Macular Degeneration - Assessment: Patient receiving shots in the right eye, reports blurry vision and difficulty driving at night. - Plan: - Continue current treatment and follow-up with surgery scheduling coordinator as scheduled. - Encourage the patient to limit driving to daytime hours for safety. Sleep and Mood - Assessment: Patient reports good sleep and controlled mood. - Plan: - No changes needed at this time, continue current medications. - Follow-up in 6 months or sooner if needed. 11/12/2023 Major neurocognitive disorder (ICD9-CM - 294.20) Anxiety - Assessment: The patient reports improvement in anxiety since starting buspirone. - Plan: - Continue buspirone 1 tablet twice a day for 90 days. - Follow-up in 6 months or sooner if needed. 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 - Bladder cancer: Completed treatments, recent scope satisfactory, next scope in 2 months. - Prostate cancer: PSA at 0.1, stable and satisfactory. - Plan: - Continue regular follow-ups with oncologist and urologist as scheduled. Upper Respiratory Infection - Assessment: Patient reports a persistent cold with thick mucus and coughing. - Plan: - Recommend the patient to see their primary care physician for evaluation and treatment. Macular Degeneration - Assessment: Patient receiving shots in the right eye, reports blurry vision and difficulty driving at night. - Plan: - Continue current treatment and follow-up with surgery scheduling coordinator as scheduled. - Encourage the patient to limit driving to daytime hours for safety. Sleep and Mood - Assessment: Patient reports good sleep and controlled mood. - Plan: - No changes needed at this time, continue current medications. - Follow-up in 6 months or sooner if needed. 11/12/2023 Other referral to the local chapter or national office of the Alzheimer's [employer] (6-500-904-39 00; http://www.al z.org), the Alzheimer's Disease Education and Referral Center (ADEAR) (4-419-503-43 80; http://www.ni a.nih.gov/Alz heimers/), Anxiety - Assessment: The patient reports improvement in anxiety since starting buspirone. - Plan: - Continue buspirone 1 tablet twice a day for 90 days. - Follow-up in 6 months or sooner if needed. 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 - Bladder cancer: Completed treatments, recent scope satisfactory, next scope in 2 months. - Prostate cancer: PSA at 0.1, stable and satisfactory. - Plan: - Continue regular follow-ups with oncologist and urologist as scheduled. Upper Respiratory Infection - Assessment: Patient reports a persistent cold with thick mucus and coughing. - Plan: - Recommend the patient to see their primary care physician for evaluation and treatment. Macular Degeneration - Assessment: Patient receiving shots in the right eye, reports blurry vision and difficulty driving at night. - Plan: - Continue current treatment and follow-up with surgery scheduling coordinator as scheduled. - Encourage the patient to limit driving to daytime hours for safety. Sleep and Mood - Assessment: Patient reports good sleep and controlled mood. - Plan: - No changes needed at this time, continue current medications. - Follow-up in 6 months or sooner if needed. 06/09/2024 Other Prostate Cancer Screening: Care Instructions material was published referral to the local chapter or national office of the Alzheimer's Association (5-234-642-39 00; http://www.al z.org), the Alzheimer's Disease Education and Referral Center (ADEAR) (3-173-226-43 80; http://www. a.nih.gov/Alz zabrina/), Dyspnea and COPD - Assessment: Patient reports difficulty breathing and limited mobility within the house due to shortness of breath. Dietary Aide Teacher and vascular doctor ruled out heart-related issues. Two pulmonologists ruled out lung issues, despite the presence of COPD. Patient mentions having no social life due to breathing difficulties. - Plan: - Continue monitoring symptoms and follow up with criminal psychologist as needed. 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 Infectious disease doctor and orthopedic surgeon managed the infection with drainage, debridement, and injectable antibiotics. Currently on 500 mg of cephalexin, 2 capsules a day. Patient informed that the infection may never be completely eradicated due to the presence of metal in the joint. - Plan: - Continue antibiotic therapy as prescribed. - Follow up with infectious disease doctor and orthopedic surgeon as needed. Anxiety and Depression - Assessment: Patient reports increased anxiety and depressive thoughts, though not suicidal. Previously prescribed buspirone 5 mg 3 times a day, but the third dose did not seem to provide additional relief. Patient expresses worry about what's next regarding health issues. - Plan: - Increase buspirone dosage to 10 mg twice a day for 3 months. - Monitor patient's mental health and adjust treatment as needed. Weight Loss and Poor Appetite - Assessment: Patient reports a loss of 7 pounds in a little over 2 months and a lack of appetite. - Plan: - Encourage patient to maintain a balanced diet and monitor weight. - Consider referral to a manager college if weight loss continues or appetite does not improve. Sleep Disturbances - Assessment: Patient reports decent sleep but wakes up earlier than desired. - Plan: - Continue monitoring sleep patterns and consider sleep hygiene interventions if needed. Cancer History - Assessment: Patient has a history of lung cancer, prostate cancer, and ongoing bladder cancer. Patient mentions bladder cancer is expected to be okay but will take time to confirm. - Plan: - Continue follow-up with oncologist and urologist as needed for cancer management. Blood Pressure - Assessment: Patient reports blood pressure of 120/62. - Plan: - Continue monitoring blood pressure and maintain current management. Prescription - Plan: - BuSpar 10 mg twice a day for 3 months, to be sent to [facility] pharmacy. Follow-up - Plan: - Schedule next appointment in 3 months to reassess anxiety management and overall health status. 09/01/2024 Rogers Thomson, elderly male with history of bladder, lung, and prostate cancer, presenting with concerns of balance issues, shortness of breath, weight loss, and anxiety. Balance issues and gait instability Assessment: Patient reports using a walker for support and experiencing easy loss of balance with occasional wobbliness. No recent falls reported, but patient expresses concern about stability. This could be related to age-related changes, side effects of medications, or underlying medical conditions. Further evaluation may be necessary to determine the exact cause and appropriate interventions. Plan: - Continue use of walker for support and safety - Monitor for any falls or worsening of balance issues - Consider referral to physical therapy for gait and balance assessment if symptoms worsen Dyspnea Assessment: Patient reports shortness of breath, particularly with minimal exertion such as standing up or raising arms above head. Notably, oxygen levels remain stable during these episodes. This symptom could be related to deconditioning, underlying cardiopulmonary issues, or a manifestation of anxiety. The persistence of this symptom without a clear etiology warrants further investigation. Plan: - Continue monitoring oxygen levels at home - Advise patient to report any worsening of symptoms - Consider referral to pulmonology or cardiology for further evaluation if symptoms persist or worsen Weight loss Assessment: Patient reports significant weight loss of 17 pounds over the past 3-4 months. This is concerning given the patient's history of multiple cancers. While the patient notes a decreased appetite over the past few years, the recent acceleration in weight loss requires further investigation to rule out recurrence of cancer or other underlying medical conditions. Plan: - Monitor weight closely - Recommend nutritional assessment and dietary counseling - Consider referral to gastroenterology or oncology for further evaluation Anxiety Assessment: Patient reports ongoing anxiety, which is being managed with medication (likely buspirone, based on the mention of Kacie). The current treatment appears to be helping, but the patient still experiences significant anxiety symptoms. Plan: - Continue buspirone 10 mg PO BID - Monitor for efficacy and side effects - Encourage non-pharmacologic al anxiety management techniques Depressive symptoms Assessment: Patient expresses feelings of existential distress and frustration related to functional limitations and health issues. While denying active suicidal ideation, the patient reports wondering about their purpose and feeling like a prisoner in their own home due to health limitations. These symptoms suggest a possible adjustment disorder with depressed mood or subsyndromal depression related to chronic health issues and functional decline. Plan: - Continue current medication regimen (venlafaxine 150 mg PO daily) - Encourage engagement in pleasurable activities within physical limitations - Discuss potential benefits of psychotherapy or support groups - Monitor for worsening of mood or emergence of suicidal ideation Cancer surveillance Assessment: Patient has a history of bladder, lung, and prostate cancer. Recent bladder surveillance was satisfactory, with next cystoscopy scheduled in 1-2 months. Lung and prostate cancers are reported as stable with no current issues. Plan: - Continue with scheduled bladder cancer surveillance (cystoscopy in 1-2 months) - Maintain regular follow-ups with oncology for ongoing cancer surveillance Advance care planning Assessment: Patient has completed a living will and final will. Patient expresses desire not to be placed on life-sustaining machines. Plan: - Confirm advance directives are up to date and accessible in medical record - Ensure patient's wishes regarding end-of-life care are clearly documented Disclaimer: This note has been transcribed using speech recognition software and serves as a reflection of the patient's visit. While efforts have been made to ensure accuracy, there may be errors, including software development engineer inaccuracies and misspellings of medication names. This document should not be considered a verbatim record, and any discrepancies should be verified with the provider. 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
--- OUTSIDE RECORDS SUMMARY | 2024-10-22 11:54 | XMS_ITS | Clinical Summary ---
Author Organization [facility] [address] Address [address] [place] [address] Care Team Providers Care Slot Machine Floor Person Name Role Phone Arnold Fernández MD Primary [...] (02/05/2018): Added automatically from request for surgery [id number] Hemorrhoids 09/11/2017 Prostate cancer 09/11/2017 Double vision 06/06/2017 Blurry vision 06/06/2017 Chronic anticoagulation 06/06/2017 Nonrheumatic aortic valve stenosis 06/06/2017 Abdominal aortic aneurysm (AAA) without rupture 06/06/2017 Assessment & Plan (05/02/2023 10:22 AM LAW LIBRARIAN): 3.1 cm infrarenal abdominal aortic aneurysms, discussed finding with the patient with the recommendation for intervention at 5.5 cm or with rapid growth. Recommend risk factor modification with ASA, statin therapy in good blood pressure control. Discussed the importance of ongoing surveillance with repeat aortoiliac duplex in 1 year. Dizziness 06/06/2017 Hyperlipidemia LDL goal <70 06/06/2017 Assessment & Plan (05/02/2023 10:22 AM LAW LIBRARIAN): Stable continue Crestor 10 mg. History of [...] 2014 Assessment & Plan (05/02/2023 10:21 AM LAW LIBRARIAN): Stable continue Eliquis 5 mg. Cephalalgia 05/30/2013 Small cell carcinoma of lung 05/29/2013 Chronic obstructive pulmonary disease Encounters Date Type Department Care Team Description 10/01/[address] [address] Yisel Akhtar Successful Phone Call ([employer] med adherence) from Last 3 Months Immunizations Immunization Administration [...] on file Legal Sex Male 11:58 PM LAW LIBRARIAN Gender Identity Not on file Sexual Orientation [...] 7:17 PM CDT Height 167.6 cm (5' 6) 02/10/2024 10:17 AM CDT Body Mass Index [...] season) 2024 02/26/2021, 08/03/2020, 07/13/2020 Influenza Vaccine (Season Ended) 2025 02/26/2021, 01/25/2020, 02/24/2018, Additional history exists Medical Devices Implanted Type Area Air Quality Technician Device Identifier Shelf Expiration Date Model / Serial / Lot [employer] [id number] Angio-Seal Vip Bondek-Plus 6fr .035in 70cm Hemostatic Latex Free - [id number] Implanted:Qty: 1 on 02/12/2018 by Tiara Rodriguez MD at [facility] [employer] 10/11/2018 [id number] / / [id number] Insurance AETNA MEDICARE AETNA MEDICARE [facility] MEDICARE [facility] MEDICARE ADVANTAGE Advance Directives For more information, please contact: [phone] * Full Code (Latest Code Status on File) Date Activated Date Inactivated Comments 02/12/2018 1:31 PM 02/12/2018 5:35 PM * Full Code Date Activated Date Inactivated Comments 10/12/2017 2:15 PM 10/13/2017 5:10 PM Care Teams Slot Machine Floor Person Relationship Specialty Start Date End Date Arnold Fernández MD [address] [place] [address] PCP - General Family Medicine 02/10/24
--- OUTSIDE RECORDS SUMMARY | 2024-10-22 11:54 | XMS_ITS | Referral Summary ---
Author Organization [facility] [address] Address [address] [place] [address] Care Team Providers Care Commercial Agent Name Role Phone Arnold Fernández MD Primary Care Prov ider Encounters Date Type Department Care Team Description 10/01/2024 Telephone [facility] Accountable Care Organization [address] [place] [address] Yisel Akhtar Successful Phone Call ([employer] med adherence) from Last 3 Months Allergies Active Allergy [...] (02/05/2018): Added automatically from request for surgery [id number] Hemorrhoids 09/11/2017 Prostate cancer 09/11/2017 Double vision 06/06/2017 Blurry vision 06/06/2017 Chronic anticoagulation 06/06/2017 Nonrheumatic aortic valve stenosis 06/06/2017 Abdominal aortic aneurysm (AAA) without rupture 06/06/2017 Assessment & Plan (05/02/2023 10:22 AM CONSTRUCTION EXECUTIVE): 3.1 cm infrarenal abdominal aortic aneurysms, discussed finding with the patient with the recommendation for intervention at 5.5 cm or with rapid growth. Recommend risk factor modification with ASA, statin therapy in good blood pressure control. Discussed the importance of ongoing surveillance with repeat aortoiliac duplex in 1 year. Dizziness 06/06/2017 Hyperlipidemia LDL goal <70 06/06/2017 Assessment & Plan (05/02/2023 10:22 AM CONSTRUCTION EXECUTIVE): Stable continue Crestor 10 mg. History of [...] 2014 Assessment & Plan (05/02/2023 10:21 AM CONSTRUCTION EXECUTIVE): Stable continue Eliquis 5 mg. Cephalalgia 05/30/2013 [...] on file Legal Sex Male 11:58 PM CONSTRUCTION EXECUTIVE Gender Identity Not on file Sexual Orientation [...] on file Medical Devices Implanted Type Area Marble Finisher Device Identifier Shelf Expiration Date Model / Serial / Lot [employer] [id number] Angio-Seal Vip Bondek-Plus 6fr .035in 70cm Hemostatic Latex Free - [id number] Implanted:Qty: 1 on 02/12/2018 by Tiara Rodriguez MD at [facility] [employer] 10/11/2018 [id number] / / [id number] [place] [address] [address] [place] [address] [id number] [place] [address] MEDICARE [facility] MEDICARE [facility] MEDICARE ADVANTAGE Advance Directives For more information, please contact: [phone] * Full Code (Latest Code Status on File) Date Activated Date Inactivated Comments 02/12/2018 1:31 PM 02/12/2018 5:35 PM * Full Code Date Activated Date Inactivated Comments 10/12/2017 2:15 PM 10/13/2017 5:10 PM Care Teams Commercial Agent Relationship Specialty Start Date End Date Arnold Fernández MD [address] [place] [address] PCP - General Family Medicine 02/10/24
--- OUTSIDE RECORDS SUMMARY | 2024-10-22 11:54 | XMS_ITS | Encounter Summary ---
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
--- OUTSIDE RECORDS SUMMARY | 2024-10-22 11:54 | XMS_ITS | Clinical Summary ---
Author Organization [facility] Address [address] [place] [address] Care Team Providers Care Tick Inspector Name Role Phone Endy Garcia MD Primary Care Provider [phone] Source Comments [facility]ates and Associated Physician Practices is amultiple site organization consisting of ambulatory clinics and hospital sitesin [place], [place], [place] and [place]. This disclosure is being madepursuant to the Care Everywhere program and may not contain all information available regarding this patient. Last updated 18.[facility] Immunizations Immunization Administration Dates Next Due INFLUENZA VACCINE, HIGH-DOSE , QUADR. (FLUZONE HIGH-DOSE QUADRIVALENT; 65Y+), 0.7 ML (HD-IIV4) 01/25/2020 Social History Tobacco Use Types Packs/Day Years Used Date Smoking Tobacco: Never Assessed Sex and Gender Information Value Date Recorded Sex Assigned at Not on file Legal Sex Male 6:08 AM HISTORICAL INTERPRETER Gender Identity Not on file Sexual Orientation Not on file Plan of Treatment Health Maintenance Due Date Last Done Comments DTAP/TDAP/TD VACCINES (1 - Tdap) 1957 PNEUMOCOCCAL VACCINE 50+ (1 of 1 - PCV) 1988 ZOSTER VACCINE (1 of 2) 1988 Respiratory Syncytial Virus (RSV) Vaccine Pt: or over 60 yrs (1 - 1-dose 75+ series) 2013 COVID-19 VACCINE ( - 2023- season) 2024 DEPRESSION SCREENING 05/14/2024 MEDICARE AWV CALENDAR YEAR 2024 INFLUENZA VACCINE (Season Ended) 2025 01/25/2020, 02/24/2018, 04/17/2017, Additional history exists HEPATITIS B VACCINE Aged Out No longe r eligible based on patient's age to complete this topic HIB VACCINE Aged Out No longer eligi ble based on patient's age to complete this topic HPV VACCINE Aged Out No longer eligi ble based on patient's age to complete this topic MENINGOCOCCAL (Group B) VACCINE SHARED DECISION-MAKING Aged Out No longer eligible based on patient's age to complete this topic MENINGOCOCCAL GROUPS A/C/Y/W VACCINE Aged Out No longer eligible based on patient's age to complete this topic Insurance AETNA MEDICARE ADV Care Teams Tick Inspector Relationship Specialty Start Date End Date Endy Garcia MD [address] [place] [address] PCP - General 03/22/20
--- OUTSIDE RECORDS SUMMARY | 2024-10-22 11:54 | XMS_ITS ---
Author Organization [facility] Address [address] [place] [address] Phone Care Team Providers Care Sexual Assault Counselor Name Role Phone Unavailable Primary Care Provider Unavailabl e Active Problems Problem Noted Date Diagnosed Date Chronic obstructive pulmonary disease 02/29/2024 Pyogenic arthritis of right knee joint 4 S/P total knee arthroplasty, right 02/10/2024 Paroxysmal atrial fibrillation 02/10/2024 Primary hypertension 02/10/2024 Stage 3a chronic kidney disease 02/10/2024 Prostate cancer 09/11/2017 Nonrheumatic aortic valve stenosis 06/06/2017 Overview (02/29/2024): Added automatically from request for surgery [id number] Hyperlipidemia LDL goal <70 06/06/2017 History of [...]
--- OUTSIDE RECORDS SUMMARY | 2024-10-22 11:54 | XMS_ITS | CONTINUITY OF CARE DOCUMENT ---
Author Name indigo sood Address Unknown Organization [facility] Address [address] [place] [address] Phone [phone] Care Team Providers Care Roofing Laborer Name Role Phone Hari TORRES, Morro Unavailable EVAN GARCIA MD Unavailable EVAN GARCIA MD Unavailable PROBLEMS Condition Status Date Provider Notes [...] In-person encounter Office Visit Morro Noriega MD [facility] CAD--mild CAD, cath 03/2023--stress PET fixed defects, ladder cancer s/p resection of mass - In-person encounter Office Visit Morro Noriega MD [facility] Aortic stenosis--mild echo 02/2024Hx of lung cancer 2013, upper R lobectomyCAD--mild CAD, cath 03/2023--stress PET fixed defects, ardiology examinationWeaknessNear syncope - In-person encounter Office Visit Morro Noriega MD [facility] Aortic stenosis--mild echo 02/2024 - In-person encounter Office Visit Morro Noriega MD [facility] Chest discomfort - In-person encounter Office Visit Morro Noriega MD [facility] Aortic stenosis--mild echo AD--mild CAD, cath 03/2023--stress PET fixed defects, 04/2024 - In-person encounter Office Visit Morro Noriega MD [facility] Shortness of breath--nl stress nuc 03/2022 - In-person encounter Office Visit Morro Noriega MD [facility] Aortic stenosis--mild echo AATobacco abuse--quitAtrial fibrillation, [...] ramires Romero blood pressure, cuff size regular [facility] Romero oxygen saturation, oximetry 98 % [facility] Romero pulse rate 88 /min [facility] Romero weight E&M 162.8 [lb_av] [facility] height E&M 66 [in_i] [facility] Romero Body Mass Index (Ratio) 26.47 kg/m2 Ramiro Noriega MD blood pressure, cuff size regular Sathish et blood pressure, diastolic 71 mm[Hg] Sathish rret blood pressure, systolic 141 mm[Hg] Jar ret pulse rate 79 /min Inck er y oxygen saturation, oximetry 95 % [...] Low Absolute Neutrophil count 2452 cells/mcL [employer] [id number] Normal mean platelet volume 10.2 fL [employer] [...] Status Instructions Dates Provider Indications Com ments diltiazem HCl (Cardizem CD) 120 mg capsule,extended release 24hr active Take 1 capsule by mouth once daily 5 Maureen Santana RN valsartan 40 mg tablet active Take 1 tablet by mouth once daily 3 Wili Zaragoza diltiazem HCl (Cardizem CD) 120 mg capsule,extended release 24hr completed TAKE 1 TABLET BY MOUTH EVERY DAY 6 - 5 Maureen Santana RN rosuvastatin 10 mg tablet completed 0 Wili Zaragoza valsartan 40 mg tablet completed Take 1 tablet by mouth once daily 1 - 6 Wili Zaragoza valsartan 40 mg tablet completed TAKE 1 [...] social history E&M S moking History: Raymundo dietrich is a former smoker. Wili Zaragoza smoking status Former smoker Kenyetta jasmine social history reviewed E&M revi ewed - no changes required Wili Zaragoza smoking status Former smoker Janice davenport social history reviewed E&M revi ewed - no changes required Wili Zaragoza smoking status Former smoker Maria C Fulton social history reviewed E&M revi ewed - no changes required Wili Zaragoza FUNCTIONAL STATUS Date Observation Value Provider HRA, CV Assess/Plan, Angina (inactive) Management Plan continue current therapy Wili Zaragoza HRA, CV Assess/Plan, Angina (inactive) Management Plan continue current therapy Wili Zaragoza HRA, CV Assess/Plan, Angina (inactive) Management Plan continue current therapy Wili Zaragoza HRA, CV Assess/Plan, Angina (inactive) Management Plan continue current therapy Wili Ortegai INSURANCE PROVIDERS Payer name Policy type / Coverage type [place] red green party ID [employer] MEDICARE ESA PPO Medicare [id number] ADVANCE DIRECTIVES Name Date DISCUSSED - NO DECISION MADE TREATMENT PLAN Date Name Performer [id number],SMorro MD [id number],Morro Jasmine MD [id number],WMorro MD [id number],Morro Jasmine MD [id number],WMorro MD [id number],SWili i [id number],SWili i [id number],S, Wili Ahmedza i [id number],S, Wili Ahmedza i [id number],S, Wili Ahmedza i [id number],S,n oted to be orthostatic on exam today. We will have him hold his lasix will do labs for further eval. echo and telemonitor planned as well to rule out valvular abnormalities or arrhythmias. will also do carotid duplex, pt will return post testing or sooner if needed. Maureen Ventimiglia [facility] [id number],S,m ild to moderate per cath. will update echo to look for any change in stenosis as pt has increasing CUEVAS. Maureen Ventimiglia [facility] [id number],S,c ath 04/2022 with non obstructive CAD. medical management at this time Maureen Ventimiglia [facility] [id number],W,m ore pronounced with minimal activity. different than pt normal COPD sx. will update echo and labs to look for underlying source of SOB Maureen Ventimiglia [facility] [id number],S, Wili Ahmedza i [id number],S, Wili Ahmedza i [id number],W, Wili Ahmedza i [id number],S, Wili Ahmedza i [id number],S, Wili Ahmedza i [id number],S, Wili Ahmedza i [id number],S, Wili Ahmedza i [id number],S, Wili Ahmedza i [id number],S, Wili Ahmedza i [id number],S, Wili Ahmedza i [id number],S, Wili Ahmedza i [id number],S, Wili Ahmedza i [id number],S, Wili Ahmedza i [id number],W, Wili Ahmedza i [id number],W, Wili Ahmedza i [id number],S, Wili Ahmedza i [id number],S, Wili Ahmedza i [id number],W, Wili Ahmedza i [id number],S, Wili Martinezmedza i Cardiology Morro Noriega MD Cardiology: H is updated medication list for this problem includes: Trelegy Ellipta 100-62.5-25 Mcg Blister With Device (Odcehgtsvus-nxljxiwov-xtovqfvz) Morro Noriega MD Cardiology: H is updated medication list for this problem includes: Valsartan 40 Mg Tablet (Valsartan) ..... Take 1 tablet by mouth once daily Diltiazem Hcl (cardizem Cd) 120 Mg Capsule,extended Release 24hr (Diltiazem hcl (cardizem cd)) ..... Take 1 tablet by mouth every day Morro Noriega MD Cardiology Morro Noriega MD Cardiology:This dileepi t has been a part of the [...] Trelegy Ellipta 100-62.5-25 Mcg Blister With Device (Zmowhnkmmve-yxctnpxxm-ltnefwib) [facility] Telehealth [facility] Telehealth: T he following medications were removed from the medication list: Valsartan 40 Mg Tablet (Valsartan) ..... Take 1 tablet by mouth once daily His updated medication list for this problem includes: Diltiazem Hcl (cardizem Cd) 120 Mg Capsule,extended Release 24hr (Diltiazem hcl (cardizem cd)) ..... Take 1 tablet by mouth every day Orders: S tress Cardiac PET-CT (19234) m yocardial blood flow (PET) (04354) [facility] Tele[facility]: O rders: S tress Cardiac PET-CT (28634) m yocardial blood flow (PET) (13643) [facility] Tele[facility]: O rders: S tress Cardiac PET-CT (24578) m yocardial blood flow (PET) (72099) [facility]: O rders: C omplete Echo (62362) [facility] Card[facility]: H is updated medication list for this problem includes: Valsartan 40 Mg Tablet (Valsartan) ..... Take 1 tablet by mouth once daily Orders: C omplete Echo (30385) M onitor - Telemetry (Mobile Cardiac) (CPT-40960) [facility]: H is updated medication list for this problem includes: Trelegy Ellipta 100-62.5-25 Mcg Blister With Device (Anfpiwunznb-sdpwcimci-xbqsidbl) [facility]: O rders: M onitor - Telemetry (Mobile Cardiac) (CPT-01077) Wili ruy Cardiology: O rders: M onitor - Telemetry (Mobile Cardiac) (CPT-87470) [facility] Morro Noriega MD Telehealth Morro Noriega [...] testing or sooner if needed. Maureen Ventimiglia [facility] Cardiology:mild to m oderate per cath. will update echo to look for any change in stenosis as pt has increasing CUEVAS. Maureen Ventimiglia [facility] Cardiology:cath 04/14 022 with non obstructive CAD. medical management at this time Maureen Ventimiglia [facility] Cardiology:more pron ounced with minimal activity. different than pt normal COPD sx. will update echo and labs to look for underlying source of SOB Maureen Ventimiglia [facility] Cardiology Wili Ahmedzai Cardiology Wili Ahmedzai Cardiology Wili Ahmedzai Cardiology Wili Ahmedzai Cardiology Wili Ahmedzai Cardiology Wili Ahmedzai Cardiology Wili Ahmedzai Cardiology Wili Ahmedzai Cardiology Wili Ahmedzai Cardiology Wili Ahmedzai Cardiology Wili Ahmedzai Cardiology Wili Ahmedzai Cardiology Wili Ahmedzai Cardiology Wili Ahmedzai Cardiology Wili Ahmedzai Cardiology Wili Ahmedzai Cardiology Wili Ahmedzai Cardiology Wili Ahmedzai Cardiology Wili Henriquezmedzai Date Name PROBNP, N TERMINAL IRON AND [...]
--- OUTSIDE RECORDS SUMMARY | 2024-10-22 11:54 | XMS_ITS | Encounter Summary ---
Author Organization [facility] Address [address] [place] [address] Care Team Providers Care Final Assembly And Packing Supervisor Name Role Phone Endy Garcia MD Primary Care Provider [phone] Angelo Galvan DO Primary Care Provider [phone] Endy Garcia MD Primary Care Provider [phone] Encounter Details Date Type Department Care Team (Late st Contact Info) Description 11/28/2018 Lab Requisition [facility] Care DermPath Lab [address] [place] [id number] Raymond Aguero MD [address] [place] [address] Social History Tobacco Use Types Packs/Day Years Used Date Smoking Tobacco: Never Assessed Sex and Gender Information Value Date Recorded Sex Assigned at Not on file Legal Sex Male 6:08 AM GARDENER Gender Identity Not on file Sexual Orientation Not on file documented as of this encounter Plan of Treatment Not on file documented as of this encounter Procedures Procedure Name Priority Date/Time Associated Diagnosis Comments DERMATOPATHOLOGY Routine 11/27/2018 12:0 0 AM CDT documented in this encounter Results * DERMATOPATHOLOGY (11/27/2018 12:00 AM CDT) Case Report Dermatopathology Report Case: [id number] Authorizing Provider: Raymond Aguero MD Collected: 11/27/2018 12:00 AM Pathologist: Davy Ramirez MD Received: 11/28/2018 11:37 AM Specimen: Skin, left superior forehead left of midline 3:44 PM CDT DERMATOPATHOLOGY LABORATORY Final Diagnosis Specimen A. SKIN, left superior forehead left of midline: EPIDERMOID CYST (L72.0) 3:44 PM CDT DERMATOPATHOLOGY LABORATORY at 1544 CDT Clinical History R/O EIC. 3:44 PM CDT DERMATOPATHOLOGY LABORATORY Gross Description Specimen A: Received is one formalin filled container labeled with the patient's name and designated left superior forehead left of midline. The specimen consists of a [id number] excision, bisected. Jar 0. 3:44 PM CDT [...] characteristic determined by the Dermatopathology Laboratory at [facility], directed by Dr. Gris Ramirez. These tests need not be, and therefore are not, approved by the [place] Food and Drug Administration. The tests are used for clinical purposes. Billing Codes Specimen Charges Stain Charges 54802 1 3:44 PM CDT DERMATOPATHOLOGY LABORATORY Embedded Images 3:44 PM CDT DERMATOPATHOLOGY LABORATORY Pathology/Cytolog y TISSUE SPECIMEN FROM SKIN / Unknown 11/27/2018 11/28/2018 11:37 AM CDT Raymond Aguero MD LAB - PATHOLOGY/CYTOLOGY ORD ERABLES Final Result DERMATOPATHOLOGY LABORATORY [facility] - Department of Dermatology [address], 5th Floor Lab [address] [phone] documented in this encounter Visit Diagnoses Not on filedocumented in this encounter Care Teams Final Assembly And Packing Supervisor Relationship Specialty Start Date End Date Endy Garcia MD [address] [facility] [address] [place] [address] PCP - General 10/31/18 01/24/20 Angelo Galvan DO [address] [place] [address] PCP - General Internal Medicine 01/25/20 03/21/20 Endy Garcia MD [address] [facility] [address] [place] [address] PCP - General 03/22/20 documented as of this encounter
--- OUTSIDE RECORDS SUMMARY | 2024-10-22 11:54 | XMS_ITS | Encounter Summary ---
Author Organization [facility] Address [address] [place] [address] Care Team Providers Care Hoop Maker Machine Name Role Phone Endy Garcia MD Primary Care Provider [phone] Endy Garcia MD Primary Care Provider [phone] Angelo Galvan DO Primary Care Provider Arnold Fernández MD Primary Care Prov ider Encounter Details Date Type Department Care Team (Late st Contact Info) Description 05/23/2016 Orders Only [facility] ProviderZahraa MD [address] [place] [address] Social History Tobacco Use Types Packs/Day Years Used Date Smoking Tobacco: Former Cigarettes Q uit: 05/14/2012 Alcohol Use Standard Drinks/Week Comments No 0 (1 standard drink = 0.6 oz pur e alcohol) Sex and Gender Information Value Date Recorded Sex Assigned at Not on file Legal Sex Male 11:58 PM YARD PERSON Gender Identity Not on file Sexual Orientation [...] documented as of this encounter Care Teams Hoop Maker Machine Relationship Specialty Start Date End Date Endy Garcia MD PCP - General 08/11/16 08/30/17 Endy Garcia MD PCP - General 06/11/13 08/10/16 Angelo Galvan DO PCP - General Internal Medicine 08/31/17 02/09/24 Arnold Fernández MD [address] [place] [address] PCP - General Family Medicine 02/10/24 documented as of this encounter
--- OUTSIDE RECORDS SUMMARY | 2024-10-22 11:54 | XMS_ITS ---
Author Organization [facility] [address] Address [address] [place] [address] Care Team Providers Care Consumer Electronic Retail Specialist Name Role Phone Arnold Fernández MD Primary Care Prov ider Active Problems Problem Noted Date Diagnosed Date Stage 3a chronic kidney disease 02/10/2024 History of total knee arthroplasty 02/10/2024 Effusion of right knee 02/10/2024 CUEVAS (dyspnea on exertion) 02/05/2018 Aortic valve stenosis 02/05/2018 Overview (02/05/2018): Added automatically from request for surgery [id number] Hemorrhoids 09/11/2017 Prostate cancer 09/11/2017 Double vision 06/06/2017 Blurry vision 06/06/2017 Chronic anticoagulation 06/06/2017 Nonrheumatic aortic valve stenosis 06/06/2017 Abdominal aortic aneurysm (AAA) without rupture 06/06/2017 Assessment & Plan (05/02/2023 10:22 AM GAS GOLF CART REPAIRER): 3.1 cm infrarenal abdominal aortic aneurysms, discussed finding with the patient with the recommendation for intervention at 5.5 cm or with rapid growth. Recommend risk factor modification with ASA, statin therapy in good blood pressure control. Discussed the importance of ongoing surveillance with repeat aortoiliac duplex in 1 year. Dizziness 06/06/2017 Hyperlipidemia LDL goal <70 06/06/2017 Assessment & Plan (05/02/2023 10:22 AM GAS GOLF CART REPAIRER): Stable continue Crestor 10 mg. History of [...] 2014 Assessment & Plan (05/02/2023 10:21 AM GAS GOLF CART REPAIRER): Stable continue Eliquis 5 mg. Cephalalgia 05/30/2013 [...]
--- OUTSIDE RECORDS SUMMARY | 2024-10-22 11:54 | XMS_ITS | Encounter Summary ---
Author Organization [facility] Address [address] [place] [address] Care Team Providers Care Telecom Assistant Name Role Phone Endy Garcia MD Primary Care Provider [phone] Angelo Galvan DO Primary Care Provider [phone] Endy Garcia MD Primary Care Provider [phone] Encounter Details Date Type Department Care Team (Late st Contact Info) Description 10/31/2018 Lab Requisition [facility] Care DermPath Lab [address] [place] [phone] Raymond Aguero MD [address] [place] [address] Social History Tobacco Use Types Packs/Day Years Used Date Smoking Tobacco: Never Assessed Sex and Gender Information Value Date Recorded Sex Assigned at Not on file Legal Sex Male 6:08 AM SUPERVISOR FUR DRESSING Gender Identity Not on file Sexual Orientation Not on file documented as of this encounter Plan of Treatment Not on file documented as of this encounter Procedures Procedure Name Priority Date/Time Associated Diagnosis Comments DERMATOPATHOLOGY Routine 10/30/2018 12:0 0 AM CDT documented in this encounter Results * DERMATOPATHOLOGY (10/30/2018 12:00 AM CDT) Case Report Dermatopathology Report Case: [id number] Authorizing Provider: Raymond Aguero MD Collected: 10/30/2018 12:00 AM Pathologist: Davy Ramirez MD Received: 10/31/2018 01:21 PM Specimen: Skin, left lat superior hip 2:26 PM T DERMATOPATHOLOGY LABORATORY Final Diagnosis Specimen A. SKIN, left lat superior hip: EPIDERMOID CYST WITH EVIDENCE OF RUPTURE (L72.0) 2:26 PM T DERMATOPATHOLOGY LABORATORY at 1426 CDT Clinical History R/O inflammed & ruptured EIC. 2:26 PM T DERMATOPATHOLOGY LABORATORY Gross Description Specimen A: Received is one formalin filled container labeled with the patient's name and designated left lat superior hip.The specimen consists of an ellipse measuring [id number] and is oriented with the notch at [...] in cassettes 3-4. Jar 0. 2:26 PM [facility] DERMATOPATHOLOGY LABORATORY Microscopic Description Specimen A. SKIN, left lat superior hip: Within the dermis, there is a space lined by epithelium that resembles normal epidermis and the infundibular portion of the hair follicle. Surrounding this is an infiltrate with neutrophils, histiocytes, and multinucleated giant cells. 2:26 PM T DERMATOPATHOLOGY LABORATORY Disclaimer An external [...] purposes. Billing Codes Specimen Charges Stain Charges 31341 1 2:26 PM T DERMATOPATHOLOGY LABORATORY Embedded Images 9 2:26 PM CDT DERMATOPATHOLOGY LABORATORY Pathology/Cytolog y TISSUE SPECIMEN FROM SKIN / Unknown 10/30/2018 10/31/2018 1:21 PM CDT Raymond Aguero MD LAB - PATHOLOGY/CYTOLOGY ORD ERABLES Final Result DERMATOPATHOLOGY LABORATORY [facility] - Department of Dermatology [address] [facility] 5th Floor Lab [address] [phone] documented in this encounter Visit Diagnoses Not on filedocumented in this encounter Care Teams Telecom Assistant Relationship Specialty Start Date End Date Endy Garcia MD [address] [facility] [address] [place] [address] PCP - General 10/31/18 01/24/20 Angelo Galvan DO [address] [place] [address] PCP - General Internal Medicine 01/25/20 03/21/20 Endy Garcia MD [address] [place] [address] PCP - General 03/22/20 documented as of this encounter
[2024-10-22 11:56] LABS: Hematocrit 36.1 % (42.0-52.0); Hemoglobin 10.8 g/dL (14.0-18.0)
[2024-10-22 12:11] LABS: INR 1.3; Prothrombin Time 16.4 Seconds (11.1-14.7)
[2024-10-22 12:12] LABS: Partial Thromboplastin Time 32.4 Seconds (22.3-36.8)
[2024-10-22 12:27] LABS: Anion Gap 8 mmol/L (4-12); Blood Urea Nitrogen 27 mg/dL (9-20); Calcium 9.8 mg/dL (8.4-10.2); Carbon Dioxide 31 mmol/L (22-30); Chloride 100 mmol/L (98-107); Estimated Glomerular Filt Rate 48; Glucose 112 mg/dL (65-110); Potassium 4.5 mmol/L (3.4-5.0); Sodium 139 mmol/L (137-145)
== END 2024-10-22 10:18 | disposition home or self-care (01) ==
LOC: ANHSURGERY 10:20
PROVIDERS: Anesthesiology; PCP Family Medicine Adolescent Medicine; Visit Provider Urology
DX: C67.9 Malignant neoplasm of bladder, unspecified (principal); E11.9 Type 2 diabetes mellitus without complications; D64.9 Anemia, unspecified; N18.30 Chronic kidney disease, stage 3 unspecified; I10 Essential (primary) hypertension
CPT/HCPCS: 36415; 80048; 85014; 85018; 85610; 85730; 87086; 93005

== ENCOUNTER 2024-10-28 02:26 | Day surgery (SDC) | payer MEDICARE, SELFPAY ==
[2024-10-21 11:45] VITALS: BMI 23.8
--- NOTE | 2024-10-21 12:31 | PC.NURSE ---
Report to the Outpatient Waiting Room, entrance under the green pavilion located off [facility], at time __6:00AM____ on date ___10/28/24____. Planned Procedure Time: ___7:30AM____.? Time changes happen often and if your time is changed the preop area will call you the afternoon before. - You and your visitor will be asked to self-screen and do not enter if you have any COVID symptoms. Please call surgeon if you need to reschedule. - A mask is optional within the hospital at this time. Patients may have clear liquids (water, carbonated beverages, clear teas, apple juice) until 3 hours prior to surgery (4:30AM) with a maximum of 20 ounces. - No food from midnight until time of surgery and no smoking, or chewing tobacco (or any form of nicotine). No chewing gum, candy or mints. Take only the following medications with a SIP of water on the morning of surgery: ____BUSPIRONE, CEPHALEXIN, DILTIAZEM, VENLAFAXINE, TRELEGY ELLIPTA INHALER. MAY USE ALBUTEROL INHALER NEEDED. DO NOT STOP ANY OF YOUR OTHER PRESCRIPTION MEDICATIONS PRIOR TO SURGERY EXCEPT THE FOLLOWING Hold all vitamins and supplements for 3 days per anesthesiologist.- LAST DOSE 10/24/24 Medications to discontinue per physician __HOLD ELIQUIS 3 DAYS PRE-OP PER DR TORO PER PATIENT Date to take last dose 10/24/24 Please no make-up, nail bengali, hairspray, perfume, deodorant, or body powder the day of surgery.? No jewelry (including any body piercings) or valuables the day of surgery, leave them at home.? Please take a shower or bath the night before, or the morning of, surgery with an antibacterial soap.? Wear comfortable, loose fitting clothing.? - Jewelry must be removed prior to entering the operating room.? Rings and piercings that are not removed may be cut off. - The hospital will not accept responsibility for valuables.? - Please leave all valuables, including medications, at home the day of surgery. If you are going home after surgery, a licensed train driver must drive you home.? - NO public transportation without another adult if you receive anesthesia. - We recommend that an adult stay with you for 24 hours following discharge. - We also recommend that you do not drive, make important decision, drink alcoholic beverages, or take any drugs that were not prescribed by your health care provider for at least 24 hours after your discharge time. Follow any additional instructions given to you from your surgeon. Telephone instructions given to ____PATIENT and asked if any additional questions and then verbalized understanding. Patient advised to call surgeon office or pre surgery nurse liaison [phone] if any additional questions.
[2024-10-28] VITALS (7 sets, daily range): BP systolic 102–131; BP diastolic 52–76; PULSE 81–85; RESP 18–20; TEMP 36.2–36.7; O2SAT 97–100; BMI 24.0
--- OUTSIDE RECORDS SUMMARY | 2024-10-28 02:29 | XMS_ITS | Encounter Summary ---
Author Organization [facility] Address [address] [place] [address] Care Team Providers Care Key Cutter Name Role Phone Endy Garcia MD Primary Care Provider [phone] Endy Garcia MD Primary Care Provider [phone] Angelo Galvan DO Primary Care Provider [phone] Arnold Fernández MD Primary Care Prov ider Encounter Details Date Type Department Care Team (Late st Contact Info) Description 05/23/2016 Orders Only [facility] ProviderZahraa MD [address] [place] [address] Social History Tobacco Use Types Packs/Day Years Used Date Smoking Tobacco: Former Cigarettes Q uit: 05/14/2012 Alcohol Use Standard Drinks/Week Comments No 0 (1 standard drink = 0.6 oz pur e alcohol) Sex and Gender Information Value Date Recorded Sex Assigned at Not on file Legal Sex Male 11:58 PM SEASONAL DELIVERY DRIVER Gender Identity Not on file Sexual Orientation [...] documented as of this encounter Care Teams Key Cutter Relationship Specialty Start Date End Date Endy Garcia MD PCP - General 08/11/16 08/30/17 Endy Garcia MD PCP - General 06/11/13 08/10/16 Angelo Galvan DO PCP - General Internal Medicine 08/31/17 02/09/24 Arnold Fernández MD [address] [place] [address] PCP - General Family Medicine 02/10/24 documented as of this encounter
--- OUTSIDE RECORDS SUMMARY | 2024-10-28 02:29 | XMS_ITS ---
Author Organization [facility] [address] Address [address] [place] [address] Care Team Providers Care Air Force Senior Officer Name Role Phone Arnold Fernández MD Primary Care Prov ider Active Problems Problem Noted Date Diagnosed Date Stage 3a chronic kidney disease 02/10/2024 History of total knee arthroplasty 02/10/2024 Effusion of right knee 02/10/2024 CUEVAS (dyspnea on exertion) 02/05/2018 Aortic valve stenosis 02/05/2018 Overview (02/05/2018): Added automatically from request for surgery [id number] Hemorrhoids 09/11/2017 Prostate cancer 09/11/2017 Double vision 06/06/2017 Blurry vision 06/06/2017 Chronic anticoagulation 06/06/2017 Nonrheumatic aortic valve stenosis 06/06/2017 Abdominal aortic aneurysm (AAA) without rupture 06/06/2017 Assessment & Plan (05/02/2023 10:22 AM WIRE STRETCHER): 3.1 cm infrarenal abdominal aortic aneurysms, discussed finding with the patient with the recommendation for intervention at 5.5 cm or with rapid growth. Recommend risk factor modification with ASA, statin therapy in good blood pressure control. Discussed the importance of ongoing surveillance with repeat aortoiliac duplex in 1 year. Dizziness 06/06/2017 Hyperlipidemia LDL goal <70 06/06/2017 Assessment & Plan (05/02/2023 10:22 AM WIRE STRETCHER): Stable continue Crestor 10 mg. History of [...] 2014 Assessment & Plan (05/02/2023 10:21 AM WIRE STRETCHER): Stable continue Eliquis 5 mg. Cephalalgia 05/30/2013 [...]
--- OUTSIDE RECORDS SUMMARY | 2024-10-28 02:29 | XMS_ITS | CONTINUITY OF CARE DOCUMENT ---
Author Name indigo sood Address Unknown Organization [facility] Address [address] 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--stress PET fixed defects, ladder cancer s/p resection of mass - In-person encounter Office Visit Morro Noriega MD [facility] Aortic stenosis--mild echo 02/2024Hx of lung cancer 2013, upper R lobectomyCAD--mild CAD, cath 03/2023--stress PET fixed defects, ardiology examinationWeaknessNear syncope - In-person encounter Office Visit Morro Noriega MD [facility] Aortic stenosis--mild echo 02/2024 - In-person encounter Office Visit Morro Noriega MD [facility] Chest discomfort - In-person encounter Office Visit Morro Noriega MD [facility] Aortic stenosis--mild echo AD--mild CAD, cath 03/2023--stress PET fixed defects, 04/2024 - In-person encounter Office Visit Morro Noriega MD [facility] Shortness of breath--nl stress nuc 03/2022 - In-person encounter Office Visit Morro Noriega MD [facility] Aortic stenosis--mild echo AATobacco abuse--quitAtrial fibrillation, persistentHx of lung cancer 2013, upper R lobectomyHx of TIACAD--mild CAD, cath 03/2023--stress PET fixed defects, 04/2024 VITAL SIGNS Date Observation Value Provider Body Mass Index (Ratio) 25.01 kg/m2 Ramiro Noriega MD oxygen saturation, oximetry 98 % [facility] pulse [facility] 87 /min Renée Alvarez [...] ramires Romero blood pressure, cuff size regular [facility] Romero oxygen saturation, oximetry 98 % [facility] Romero pulse rate 88 /min [facility] Romero weight E&M 162.8 [lb_av] [facility] height E&M 66 [in_i] [facility] Romero Body Mass Index (Ratio) 26.47 [...] Low Absolute Neutrophil count 2452 cells/mcL [employer] [id number] Normal mean platelet volume 10.2 fL [employer] [...] Payer name Policy type / Coverage type [place] red democrat ID [employer] MEDICARE ESA PPO Medicare [id number] ADVANCE DIRECTIVES Name Date DISCUSSED - NO DECISION MADE TREATMENT PLAN Date Name Performer [id number],SMorro MD [id number],Morro Jasmine MD [id number],WMorro MD [id number],Morro Jasmine MD [id number],WMorro MD [id number],SWili i [id number],SWili i [id number],S, Wili Ahmedza i [id number],S, Wili Ahmedza i [id number],S, Wili Ahmedza i [id number],S,n oted to be orthostatic on exam today. We will have him hold his lasix will do labs for further eval. echo and telemonitor planned as well to rule out valvular abnormalities or arrhythmias. will also do carotid duplex, pt will return post testing or sooner if needed. Maureen Ventimiglia [facility] [id number],S,m ild to moderate per cath. will update echo to look for any change in stenosis as pt has increasing CUEVAS. Maureen Ventimiglia [facility] [id number],S,c ath 04/2022 with non obstructive CAD. medical management at this time Maureen Ventimiglia [facility] [id number],W,m ore pronounced with minimal activity. different than pt normal COPD sx. will update echo and labs to look for underlying source of SOB Maureen Ventimiglia [facility] [id number],S, Wili Ahmedza i [id number],S, Wiil Ahmedza i [id number],W, Wili Ahmedza i [id number],S, Wili Ahmedza i [id number],S, Wili Ahmedza i [id number],S, Wili Ahmedza i [id number],S, Wili Ahmedza i [id number],S, Wili Ahmedza i [id number],S, Wili Ahmedza i [id number],S, Wili Ahmedza i [id number],S, Wili Ahmedza i [id number],S, Wili Ahmedza i [id number],S, Wili Ahmedza i [id number],W, Wili Ahmedza i [id number],W, Wili Ahmedza i [id number],S, Wili Ahmedza i [id number],S, Wili Ahmedza i [id number],W, Wili Ahmedza i [id number],S, Wili Martinezmedza i Cardiology Morro Noriega MD Cardiology: H is updated medication list for this problem includes: Trelegy Ellipta 100-62.5-25 Mcg Blister With Device (Ygaoqassdlz-ogrwzsydj-tcpymezx) Morro Noriega MD Cardiology: H is updated [...] Trelegy Ellipta 100-62.5-25 Mcg Blister With Device (Zlvftfxuhww-lmwhkazax-ohcbfifx) [facility] Telehealth [facility] Telehealth: T he following medications were removed from the medication list: Valsartan 40 Mg Tablet (Valsartan) ..... Take 1 tablet by mouth once daily His updated medication list for this problem includes: Diltiazem Hcl (cardizem Cd) 120 Mg Capsule,extended Release 24hr (Diltiazem hcl (cardizem cd)) ..... Take 1 tablet by mouth every day Orders: S tress Cardiac PET-CT (40727) m yocardial blood flow (PET) (09809) [facility] Telehealth: O rders: S tress Cardiac PET-CT (69447) m yocardial blood flow (PET) (11191) [facility] Telehealth: O rders: S tress Cardiac PET-CT (34118) m yocardial blood flow (PET) (92796) [facility]: O rders: C omplete Echo (07498) [facility] Cardiology: H is updated medication list for this problem includes: Valsartan 40 Mg Tablet (Valsartan) ..... Take 1 tablet by mouth once daily Orders: C omplete Echo (31963) M onitor - Telemetry (Mobile Cardiac) (CPT-50534) [facility] Card[facility]: H is updated medication list for this problem includes: Trelegy Ellipta 100-62.5-25 Mcg Blister With Device (Ssumonciptb-flwqchhtx-oopzkgfm) [facility] Cardiology [facility] Card[facility]: O rders: M onitor - Telemetry (Mobile Cardiac) (CPT-21129) Wili ruy Cardiology: O rders: M onitor - Telemetry (Mobile Cardiac) (CPT-80694) [facility] Tele[facility] Morro Noriega MD Telehealth [...] testing or sooner if needed. Maureen Ventimiglia [facility] Cardiology:mild to m oderate per cath. will update echo to look for any change in stenosis as pt has increasing CUEVAS. Maureen Ventimiglia [facility] Cardiology:cath 04/14 022 with non obstructive CAD. medical management at this time Maureen Ventimiglia [facility] Cardiology:more pron ounced with minimal activity. different than pt normal COPD sx. will update echo and labs to look for underlying source of SOB Maureen Ventimiglia [facility] Cardiology Wili Ahmedzai Cardiology Wili Ahmedzai [...]
--- OUTSIDE RECORDS SUMMARY | 2024-10-28 02:29 | XMS_ITS | Encounter Summary ---
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
--- OUTSIDE RECORDS SUMMARY | 2024-10-28 02:29 | XMS_ITS | Patient Health Record ---
Author Organization [facility] [employer] Address [address] [place] [address] Care Team Providers Care Telegraph Equipment Maintainer Name Role Phone Arnold Fernández MD Primary Care Provider Mariam Jm Medrano Unavailable [phone] Allergies No Known Allergies Reason For Referral [...] 500 MG TAKE 1 CAPSULE BY [place] [facility] EVERY 12 HOURS Oral for 30 Days [...] Problem Recurrent major depression in full remission (42723519) Major depressive disorder, recurrent, in full remission (F33.42) 09/12/19 24 Active confirmed Problem Primary insomnia (5605108) Primary insomnia (F51.01) 09/12/19 24 Active confirmed Problem Generalized anxiety disorder (26894092) DIANA (generalized anxiety disorder) (F41.1) Active confirmed Problem Chronic obstructive pulmonary disease (62067971) Chronic obstructive pulmonary disease (J44.9) 11/20/19 19 Active confirmed Problem Ex-cigarette smoker (finding) (567224497) Former cigarette smoker (Z87.891) 04/25/20 16 Active confirmed Problem Hyperlipidemia (82224465) Hyperlipidemia LDL goal <70 (E78.5) 06/06/19 18 Active confirmed Vital Signs Heart Rate 94 /min 09/01/2024 Height-cm 167.59 cm 09/01/2024 Blood pressure diastolic 63 mm Hg 09/01/2024 Weight-kg 64.86 kg 09/01/2024 Height 65.98 in 09/01/2024 Blood pressure systolic 112 mm Hg 09/01/2024 Weight 143 lbs 09/01/2024 BMI 23.09 kg/m2 09/01/2024 Encounters Encounter Location Date Provider Diagnosis [facility] [place] [address] [facility] [address] [address] 11/12/2023 Jm Atkinson Prostate cancer C61 ; [...] stated G31.84 and Major neurocognitive disorder 294.[address] [address] [address] 06/09/2024 Jm Atkinson DIANA (generalized anx iety disorder) F41.1 ; Major depressive disorder, recurrent, in full remission F33.42 ; Hyperlipidemia LDL goal <70 E78.5 ; Former cigarette smoker Z87.891 ; Chronic obstructive pulmonary disease J44.9 and Primary insomnia F51.[address] [address] [address] 09/01/2024 Jm Atkinson Encounter for screen ing for depression Z13.31 ; Encounter for screening for cardiovascular disorders Z13.6 ; DIANA (generalized anxiety disorder) F41.1 ; Major depressive disorder, recurrent, in full remission F33.42 ; Hyperlipidemia LDL goal <70 E78.5 ; Former cigarette smoker Z87.891 ; Chronic obstructive pulmonary disease J44.9 and Primary insomnia F51.01 [facility] [place] [address] [facility] [address] [address] 05/27/2024 Jm Atkinson Assessments Encounter Date Diagnosis (ICD Code) Assessment Notes Treatment Notes Treatment Clinical Notes Section Notes 11/12/2023 Major depressive disorder, recurrent, in full [...] - Continue current treatment and follow-up with appeals reviewer veteran as scheduled. - Encourage the patient to [...] - Continue current treatment and follow-up with appeals reviewer veteran as scheduled. - Encourage the patient to limit driving to daytime hours for safety. Sleep and Mood - Assessment: Patient reports good sleep and controlled mood. - Plan: - No changes needed at this time, continue current medications. - Follow-up in 6 months or sooner if needed. 09/01/2024 Encounter for screening for depression (ICD-10 - Z13.31) 06/09/2024 DIANA (generalized anxiety disorder) (ICD-10 - F41.1) 06/09/2024 Major depressive disorder, recurrent, in full remission (ICD-10 - F33.42) 09/01/2024 Encounter for screening for cardiovascular disorders (ICD-10 - Z13.6) 06/09/2024 Hyperlipidemia LDL goal <70 (ICD-10 - E78.5) 11/12/2023 History of Kaposi's sarcoma (ICD-10 - [...] - Continue current treatment and follow-up with appeals reviewer veteran as scheduled. - Encourage the patient to [...] - Continue current treatment and follow-up with appeals reviewer veteran as scheduled. - Encourage the patient to limit driving to daytime hours for safety. Sleep and Mood - Assessment: Patient reports good sleep and controlled mood. - Plan: - No changes needed at this time, continue current medications. - Follow-up in 6 months or sooner if needed. 06/09/2024 Former cigarette smoker (ICD-10 - Z87.891) 09/01/2024 DIANA (generalized anxiety disorder) (ICD-10 - F41.1) 06/09/2024 Chronic obstructive pulmonary disease (ICD-10 - [...] - Continue current treatment and follow-up with appeals reviewer veteran as scheduled. - Encourage the patient to limit driving to daytime hours for safety. Sleep and Mood - Assessment: Patient reports good sleep and controlled mood. - Plan: - No changes needed at this time, continue current medications. - Follow-up in 6 months or sooner if needed. 09/01/2024 Major depressive disorder, recurrent, in full remission (ICD-10 - F33.42) 11/12/2023 Abdominal aortic aneurysm (AAA) without rupture [...] - Continue current treatment and follow-up with appeals reviewer veteran as scheduled. - Encourage the patient to limit driving to daytime hours for safety. Sleep and Mood - Assessment: Patient reports good sleep and controlled mood. - Plan: - No changes needed at this time, continue current medications. - Follow-up in 6 months or sooner if needed. 06/09/2024 Primary insomnia (ICD-10 - F51.01) 09/01/2024 Hyperlipidemia LDL goal <70 (ICD-10 - E78.5) 09/01/2024 Former cigarette smoker (ICD-10 - Z87.891) [...] - Continue current treatment and follow-up with appeals reviewer veteran as scheduled. - Encourage the patient to [...] - Continue current treatment and follow-up with appeals reviewer veteran as scheduled. - Encourage the patient to [...] - Continue current treatment and follow-up with appeals reviewer veteran as scheduled. - Encourage the patient to [...] - Continue current treatment and follow-up with appeals reviewer veteran as scheduled. - Encourage the patient to [...] - Continue current treatment and follow-up with appeals reviewer veteran as scheduled. - Encourage the patient to [...] - Continue current treatment and follow-up with appeals reviewer veteran as scheduled. - Encourage the patient to [...] - Continue current treatment and follow-up with appeals reviewer veteran as scheduled. - Encourage the patient to limit driving to daytime hours for safety. Sleep and Mood - Assessment: Patient reports good sleep and controlled mood. - Plan: - No changes needed at this time, continue current medications. - Follow-up in 6 months or sooner if needed. 11/12/2023 Other referral to the local chapter or national office of the Alzheimer's Association (9-597-921-39 00; http://www.al z.org), the Alzheimer's Disease Education and Referral Center (ADEAR) (9-293-476-43 80; http://www.ni a.nih.gov/Alz heimers/), Anxiety - Assessment: [...] - Continue current treatment and follow-up with appeals reviewer veteran as scheduled. - Encourage the patient to [...] or national office of the Alzheimer's Association (7-724-764-39 00; http://www.al z.org), the Alzheimer's Disease Education and Referral Center (ADEAR) (7-925-163-43 80; http://www. a.nih.gov/Alz zabrina/), Dyspnea and COPD - Assessment: Patient reports difficulty breathing and limited mobility within the house due to shortness of breath. Wholesale Manager and vascular doctor ruled out heart-related issues. Two pulmonologists ruled out lung issues, despite the presence of COPD. Patient mentions having no social life due to breathing difficulties. - Plan: - Continue monitoring symptoms and follow up with technician inventory specialist as needed. Infection in Knee Replacement - [...] monitor weight. - Consider referral to a pavilion cutter if weight loss continues or appetite does [...] for 3 months, to be sent to [facility] pharmacy. Follow-up - Plan: - Schedule [...] ensure accuracy, there may be errors, including ambulance mechanic inaccuracies and misspellings of medication names. This document should not be considered a verbatim record, and any discrepancies should be verified with the provider. Plan Of Treatment Next Appt Details Provider Name:Jm King Demetrio , 03/02/2025 01:00:00 PM, [address], [address], [place], [address], Insurance Providers Payer Name Payer Address Payer Phone Subscriber Number Group Number Insured Name Patient Relationship to Insured Coverage Start Date Coverage End Date A[employer] [address] [place] [address] [id number] DAVIDE THOMSON Self - patient is the insured Medical (General) History Medical History History ICD Code Problems: Mild neurocognitive disorder Mild recurrent major depression Primary insomnia Recurrent major depression in full remis andrew , Surgical History Surgery Date(Month/Year) Cataract surgery (31832)
--- OUTSIDE RECORDS SUMMARY | 2024-10-28 02:29 | XMS_ITS | Referral Summary ---
Author Organization [facility] [address] Address [address] [place] [address] Care Team Providers Care Drill Presser Name Role Phone Arnold Fernández MD Primary Care Prov ider Encounters Date Type Department Care Team Description 10/01/2024 Telephone [facility] Accountable Care Organization [address] [place] [address] Yisel Akhtar Successful Phone Call ([employer] med [...] (02/05/2018): Added automatically from request for surgery [id number] Hemorrhoids 09/11/2017 Prostate cancer 09/11/2017 Double vision 06/06/2017 Blurry vision 06/06/2017 Chronic anticoagulation 06/06/2017 Nonrheumatic aortic valve stenosis 06/06/2017 Abdominal aortic aneurysm (AAA) without rupture 06/06/2017 Assessment & Plan (05/02/2023 10:22 AM MANAGER CARDIOVASCULAR): 3.1 cm infrarenal abdominal aortic aneurysms, discussed finding with the patient with the recommendation for intervention at 5.5 cm or with rapid growth. Recommend risk factor modification with ASA, statin therapy in good blood pressure control. Discussed the importance of ongoing surveillance with repeat aortoiliac duplex in 1 year. Dizziness 06/06/2017 Hyperlipidemia LDL goal <70 06/06/2017 Assessment & Plan (05/02/2023 10:22 AM MANAGER CARDIOVASCULAR): Stable continue Crestor 10 mg. History of [...] 2014 Assessment & Plan (05/02/2023 10:21 AM MANAGER CARDIOVASCULAR): Stable continue Eliquis 5 mg. Cephalalgia 05/30/2013 [...] on file Legal Sex Male 11:58 PM MANAGER CARDIOVASCULAR Gender Identity Not on file Sexual Orientation [...] on file Medical Devices Implanted Type Area Home Health Speech Therapist Device Identifier Shelf Expiration Date Model / Serial / Lot [employer] [id number] Angio-Seal Vip [employer]-Plus 6fr .035in 70cm Hemostatic Latex Free - [id number] Implanted:Qty: 1 on 02/12/2018 by Tiara Rodriguez MD at [employer] 10/11/2018 [id number] / / [id number] [place] [address] [place] [address] [id number] [place] [address] MEDICARE [facility] MEDICARE [facility] MEDICARE ADVANTAGE Advance Directives For more information, please contact: [phone] * Full Code (Latest Code Status on File) Date Activated Date Inactivated Comments 02/12/2018 1:31 PM 02/12/2018 5:35 PM * Full Code Date Activated Date Inactivated Comments 10/12/2017 2:15 PM 10/13/2017 5:10 PM Care Teams Drill Presser Relationship Specialty Start Date End Date Arnold Fernández MD [address] [place] [address] PCP - General Family Medicine 02/10/24
--- OUTSIDE RECORDS SUMMARY | 2024-10-28 02:29 | XMS_ITS | Encounter Summary ---
Author Organization [facility] Address [address] [facility] [place] [address] Care Team Providers Care Linux System Admin Name Role Phone Endy Garcia MD Primary Care Provider [phone] Angelo Galvan DO Primary Care Provider [phone] Endy Garcia MD Primary Care Provider [phone] Encounter Details Date Type Department Care Team (Late st Contact Info) Description 10/31/2018 Lab Requisition [facility] Care [facility] [address] [place] [id number] Raymond Aguero MD [address] [place] [address] Social History Tobacco Use Types Packs/Day Years Used Date Smoking Tobacco: Never Assessed Sex and Gender Information Value Date Recorded Sex Assigned at Not on file Legal Sex Male 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 Jar 0. 2:[address] [facility] DERMATOPATHOLOGY LABORATORY Microscopic Description Specimen A. SKIN, [...] purposes. Billing Codes Specimen Charges Stain Charges [id number] 1 2:26 PM T DERMATOPATHOLOGY LABORATORY Embedded Images 9 2:26 PM CDT DERMATOPATHOLOGY LABORATORY Pathology/Cytolog y TISSUE SPECIMEN FROM SKIN / Unknown 10/30/2018 10/31/2018 1:21 PM CDT Raymond Aguero MD LAB - PATHOLOGY/CYTOLOGY ORD ERABLES Final Result DERMATOPATHOLOGY LABORATORY [facility] - Department of Dermatology [address] [facility] 5th Floor Lab [address] [phone] documented in this encounter Visit Diagnoses Not on filedocumented in this encounter Care Teams Linux System Admin Relationship Specialty Start Date End Date Endy Garcia MD [address] [facility] [address] [place] [address] PCP - General 10/31/18 01/24/20 Angelo Galvan DO [address] [place] [address] PCP - General Internal Medicine 01/25/20 03/21/20 Endy Garcia MD [address] [place] [address] PCP - General 03/22/20 documented as of this encounter
--- OUTSIDE RECORDS SUMMARY | 2024-10-28 02:29 | XMS_ITS | Encounter Summary ---
Author Organization [facility] Address [address] [place] [address] Care Team Providers Care Safety Professional Name Role Phone Endy Garcia MD Primary Care Provider [phone] Angelo Galvan DO Primary Care Provider [phone] Endy Garcia MD Primary Care Provider [phone] Encounter Details Date Type Department Care Team (Late st Contact Info) Description 11/28/2018 Lab Requisition [facility] Care DermPath Lab [address] [place] [id number] Raymond Aguero MD [address] [place] [address] Social History Tobacco Use Types Packs/Day Years Used Date Smoking Tobacco: Never Assessed Sex and Gender Information Value Date Recorded Sex Assigned at Not on file 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 The specimen consists of a [id number] excision, bisected. Jar 0. 3:44 PM CDT [...] characteristic determined by the Dermatopathology Laboratory at [facility], directed by Dr. Gris Ramirez. These tests need not be, and therefore are not, approved by the [place] Food and Drug Administration. The tests are used for clinical purposes. Billing Codes Specimen Charges Stain Charges 22184 1 3:44 PM CDT DERMATOPATHOLOGY LABORATORY Embedded Images 3:44 PM CDT DERMATOPATHOLOGY LABORATORY Pathology/Cytolog y TISSUE SPECIMEN FROM SKIN / Unknown 11/27/2018 11/28/2018 11:37 AM CDT Raymond Aguero MD LAB - PATHOLOGY/CYTOLOGY ORD ERABLES Final Result DERMATOPATHOLOGY LABORATORY [facility] - Department of Dermatology [address] [facility], 5th Floor Lab B [address] [phone] documented in this encounter Visit Diagnoses Not on filedocumented in this encounter Care Teams Safety Professional Relationship Specialty Start Date End Date Endy Garcia MD [address] [facility] [address] [place] [address] PCP - General 10/31/18 01/24/20 Angelo Galvan DO [address] [place] [address] PCP - General Internal Medicine 01/25/20 03/21/20 Endy Garcia MD [address] [facility] [address] [place] [address] PCP - General 03/22/20 documented as of this encounter
--- OUTSIDE RECORDS SUMMARY | 2024-10-28 02:29 | XMS_ITS | Continuity of Care Document ---
Author Organization [facility] Address [address] [place] [address] Phone Care Team Providers Care Public Health Specialist Name Role Phone Ed Flores Unavailable Unavailable [...] Diagnoses Date Provider Providers Copied on Encounter [facility], [address], [place], [place], [address], [place] tel:[phone] [facility] No Information Hebert-0 8-201 0 Doisy Edjunie. [address], [place], [address], [place]. tel:[phone] [facility], [address], [place], [place], [address], [place] tel:[phone] [facility] No Information Apr-0 9-200 9 Das OD Layo. [address] , [address], [place], [place], [facility], [place]. tel:[phone] [facility], [address], [place], [place], [address], [place] tel:[phone] [facility] No Information Mar-2 5-200 9 Doisy Edjunie. [address] , [address], [place], [facility], [place]. tel:[phone] [facility], [address], [place], [place], [address], [place] tel:[phone] [facility] No Information Mar-2 4-200 9 Doisy Edjunie. [address] , [address], [place], [facility], [place]. tel:[phone] [facility], [address], [place], [place], [address], [place] tel:[phone] [facility] No Information Mar-1 8-200 9 Doisy Edjunie. [address] , [address], [place], [address], [place]. tel:[phone] Referring Provider: Ed Pérez, [facility] [address], [place], [facility]. tel:[phone] [facility], [address], [place], [place], [address], [place] tel:[phone] [facility] No Information Mar-0 4-200 9 Mark Ward. [address] , [address], [place], [address], [place]. tel:[phone] [facility], [address] [place] [address] [address], [place], [place], [address], [place] tel:[phone] [facility] No Information Mar-0 3-200 9 Mark Ward. [address] , [address], [place], [facility], [place]. tel:[phone] Office/outpat ient Visit, [facility], [address] [place] [address] [address], [place], [place], [address], [place] tel:[phone] [facility] No Information Feb-2 3-200 9 Mark Ward. [address] , [address], [place], [facility], [place]. tel:[phone] Referring Provider: Ed Pérez, [address] [place], [place] [address], [place], [facility]. tel:[phone] Office/outpat ient Visit, [facility], [address] [place] [address] [address], [place], [place], [address], [place] tel:[phone] SEC [facility] [place] No Information Nov-1 0-200 8 Mark Ward. [address], [place], [facility], [place]. tel:[phone] [facility], [address] [place] [address] [address], [place], [place], [address], [place] tel:[phone] [facility] No Information Oct-2 4-200 8 Das OD Layo. [address] , [address], [place], [facility], [place]. tel:[phone] Office/outpat ient Visit, [facility], [address] [place] [address] [address], [place], [place], [address], [place] tel:[phone] [facility] No Information Sep-2 7-200 7 Das OD Layo. [address] , [address], [place], [facility], . tel:[phone] Office/outpat ient Visit, [facility], [address] [place] [address] [address], [place], [place], [address], [place] tel:[phone] [facility] No Information Sep-2 5-200 7 Das OD Layo. [address] , [address], [place], [address], . tel:[phone] Office/outpat ient Visit, [facility], [address] [place] [address] [address], [place], [place], [address], tel:[phone] [facility] [place] No Information Nov-1 1-200 7 Das OD Layo. [address], [address], [place], [address], . tel:[phone] [facility], [address] [place] [address] [address], [place], [place], [address], tel:[phone] [facility] [place] No Information Mitchell-2 7-200 7 Das OD Alyo. [address] , [address], [place], [facility], [place]. tel:[phone] Family History Family Member Type Diagnosis Age At Onset No Information Payers Payer name Insurance type Covered libertarian ID Authoriza tishira(s) [place] [id number] [facility]ly [facility] [id number] Social History Type Description Quantity Date Captured [...]
--- OUTSIDE RECORDS SUMMARY | 2024-10-28 02:29 | XMS_ITS | Clinical Summary ---
Author Organization [facility] [address] Address [address] [place] [address] Care Team Providers Care Fabrics And Material Cutter Name Role Phone Arnold Fernández MD Primary [...] (02/05/2018): Added automatically from request for surgery [id number] Hemorrhoids 09/11/2017 Prostate cancer 09/11/2017 Double vision 06/06/2017 Blurry vision 06/06/2017 Chronic anticoagulation 06/06/2017 Nonrheumatic aortic valve stenosis 06/06/2017 Abdominal aortic aneurysm (AAA) without rupture 06/06/2017 Assessment & Plan (05/02/2023 10:22 AM CURRICULUM SPECIALIST): 3.1 cm infrarenal abdominal aortic aneurysms, discussed finding with the patient with the recommendation for intervention at 5.5 cm or with rapid growth. Recommend risk factor modification with ASA, statin therapy in good blood pressure control. Discussed the importance of ongoing surveillance with repeat aortoiliac duplex in 1 year. Dizziness 06/06/2017 Hyperlipidemia LDL goal <70 06/06/2017 Assessment & Plan (05/02/2023 10:22 AM CURRICULUM SPECIALIST): Stable continue Crestor 10 mg. History of [...] 2014 Assessment & Plan (05/02/2023 10:21 AM CURRICULUM SPECIALIST): Stable continue Eliquis 5 mg. Cephalalgia 05/30/2013 Small cell carcinoma of lung 05/29/2013 Chronic obstructive pulmonary disease Encounters Date Type Department Care Team Description 10/01/[address] [address] Yisel Akhtar Successful Phone Call ([employer] med [...] on file Legal Sex Male 11:58 PM CURRICULUM SPECIALIST Gender Identity Not on file Sexual Orientation [...] history exists Medical Devices Implanted Type Area Agricultural Research Technician Device Identifier Shelf Expiration Date Model / Serial / Lot [employer] [id number] Angio-Seal Vip Bondek-Plus 6fr .035in 70cm Hemostatic Latex Free - [id number] Implanted:Qty: 1 on 02/12/2018 by Tiara Rodriguez MD at [facility] [employer] 10/11/2018 [id number] / / [id number] Insurance AETNA MEDICARE AETNA MEDICARE [facility] MEDICARE [facility] MEDICARE ADVANTAGE Advance Directives For more information, please contact: [phone] * Full Code (Latest Code Status on File) Date Activated Date Inactivated Comments 02/12/2018 1:31 PM 02/12/2018 5:35 PM * Full Code Date Activated Date Inactivated Comments 10/12/2017 2:15 PM 10/13/2017 5:10 PM Care Teams Fabrics And Material Cutter Relationship Specialty Start Date End Date Arnold Fernández MD [address] [place] [address] PCP - General Family Medicine 02/10/24
--- OUTSIDE RECORDS SUMMARY | 2024-10-28 02:29 | XMS_ITS | Clinical Summary ---
Author Organization [facility] Address [address] [place] [address] Care Team Providers Care Security Professional Name Role Phone Endy Garcia MD Primary Care Provider [phone] Source Comments [facility],non[facility] Affiliates and Associated Physician Practices is amultiple site organization consisting of ambulatory clinics and hospital sitesin [place], [place], [place] and [place]. This disclosure is being madepursuant to the Care Everywhere program and may not contain all information available regarding this patient. Last updated 18.[facility] Immunizations Immunization Administration Dates Next Due INFLUENZA VACCINE, HIGH-DOSE , QUADR. 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
[2024-10-28 06:40] LABS: Glucose Point of Care 109 mg/dl (65-105)
--- NOTE | 2024-10-28 06:58 | WPDANESEPPF ---
Anes - Initial Pre Proc Eval Procedure: Operation Date: 10/28/24 07:30 Proposed Procedures p Cystoscopy Bladder Biopsy with Fulguration - Brent Fuchs MD Date/Time: 10/28/24 06:58 Surgeon: Brent Fuchs MD Pre Op Diagnosis: bladder cancer Patient Data Age: 84 Gender: M Height: 1.65 m Weight: 65 kg Allergies Allergy/AdvReac Type Severity Reaction Status Date / Time codeine AdvReac Intermediate Nausea and Verified 10/21/24 11:33 Vomiting Home Medications ?Medication ?Instructions ?Recorded ?Confirmed ?Type venlafaxine 150 mg 150 mg PO DAILY 03/16/19 10/21/24 History capsule,extended release 24 hr denosumab 60 mg/mL subcutaneous 60 mg subcut [id number] 01/02/23 10/21/24 History syringe (Prolia) valsartan 40 mg tablet 40 mg PO DAILY 01/02/23 10/21/24 History cholecalciferol (vitamin D3) 25 25 mcg PO DAILY 03/15/23 10/21/24 History mcg (1,000 unit) tablet rosuvastatin 10 mg tablet See Rx Instructions .Route 12/09/23 10/21/24 Rx .COMPLEX #90 tabs albuterol sulfate 90 mcg/actuation 2 puff inhalation Q4-6H PRN 03/04/24 10/21/24 Rx aerosol inhaler Wheezing #8.5 grams cephalexin 500 mg capsule 500 mg PO QAM infection 04/25/24 10/21/24 History apixaban 5 mg tablet (Eliquis) 5 mg PO BID #180 tabs 08/24/24 10/21/24 Rx furosemide 20 mg tablet See Rx Instructions .Route 08/24/24 10/21/24 Rx .COMPLEX #90 tabs Farxiga 5 mg tablet (dapagliflozin See Rx Instructions .Route 09/09/24 10/21/24 Rx propanediol) .COMPLEX #90 tabs metformin 500 mg tablet,extended See Rx Instructions .Route 09/27/24 10/21/24 Rx release 24 hr .COMPLEX #90 tabs fluticasone fur. 100 mcg-umeclid 1 inh inhalation DAILY #60 ea 10/14/24 10/21/24 Rx 62.5 mcg-vilant 25 mcg inhalat.powder (Trelegy Ellipta) tamsulosin 0.4 mg capsule See Rx Instructions .Route 10/14/24 10/21/24 Rx .COMPLEX #90 caps buspirone 10 mg tablet 10 mg PO BID 10/21/24 10/21/24 History diltiazem HCl 120 mg 120 mg PO QAM 10/21/24 10/21/24 History capsule,extended release 24 hr multivitamin (Daily Multi-Vitamin 1 tablet PO DAILY 10/21/24 10/21/24 History tablet) Laboratory Tests 10/28/24 06:37 POC Capillary Glucose 109 H mg/dl (65-105) Patient hx anesthesia problems: none Family hx anesthesia problems: none Results Review: All pre-operative results and documents have been reviewed as part of the pre-operative evaluation. [facility] Past Medical History Medical History Carcinoma of bladder Small cell lung cancer COVID-19 Hx of pheochromocytoma Lung cancer H/O: HTN (hypertension) Hearing loss Cataract Cancer Tobacco dependence syndrome Malignant tumor of prostate (2017) Radiation treatment Gastroesophageal reflux disease Depression Chronic obstructive lung disease Benign prostatic hyperplasia Aortic valve stenosis Arthritis Depression Hypertension Normal colonoscopy Stage 3 chronic kidney disease Surgical History Surgical History H/O wrist surgery in the , fusion of left wrist History of knee replacement (2009) Right TKA History of lung surgery (2013) Right upper lobectomy, small cell ca History of right nephrectomy (2004) Family History Family History Sibling Family history of malignant neoplasm of bone Family history of malignant neoplasm of breast in first degree relative Mother Family history of congestive heart failure Other Acute anxiety CHF (congestive heart failure), NYHA class I Cancer Cataract Depression Diabetes mellitus Heart disease Psychiatric complaint Social History Social History Smoking packs per day: 1.5 Smoking cigarettes per day: 30.0 Years smoked: 50 Smoking pack-years: 75.00 Smoking status: Former smoker Tobacco type: cigarettes Second hand tobacco smoke exposure: No Smoking end date: 06/12/13 Alcohol intake: never Substance use: never Substance use type: does not use Lack of Transportation: No Lack of Food: Never True Current Housing: I Have Housing Concerned About Future Housing: No Difficulty Paying Gas/Electric Bills: No Difficulty Paying for Meds: No Currently Unemployed: No Education: High School Diploma/GED Difficulty w/ Childcare or Family Care: No Living arrangements: with family Additional living arrangements comments: PT LIVES WITH DAUGHTER NIURKA Gender identity (if verbalized by the patient): Male Spiritual care concerns: No Anes - Eval Final PreProcedure Day of Procedure 10/28/24 06:58 Patient weight: normal Heart: regular rate and rhythm Lungs: decreased breath sounds Airway: Mallampati scale class II Neurological: alert and oriented Last oral intake: >/= 8 hours ASA classification: IV Emergent: no Anesthetic plan: proceed Anesthesia type and monitoring: general LMA and standard monitoring Results Review: All pre-operative results and documents have been reviewed as part of the pre-operative evaluation. Informed Consent: The patient's anesthetic plan and its attendant risks and benefits were discussed with the patient/family/POA. Questions were solicited and answers provided to the satisfaction of the patient/family/POA.
--- NOTE | 2024-10-28 07:09 | WPDHPUPDATE1 ---
History and Physical Update Update Date/Time: 10/28/24 07:09 History and Physical has been reviewed, including an updated exam of the patient. There are NO changes in the patient's condition. Risks, benefits, and alternatives have been discussed and questions answered. Patient agrees to proceed with procedure.
[2024-10-28] MEDS: LACTATED RINGERS 1,000 ML 30 ML IV CONT (07:10)
[2024-10-28] MEDS: ceFAZolin 2 GM/D5W 50 ML 2 GM/50 ML BAG IVPB (07:18)
[2024-10-28] MEDS: LIDOCAINE 2% GEL UROJET 10 ML PKG MUCOUS MEM (07:33)
--- NOTE | 2024-10-28 07:34 | S_PTH ---
PATIENT: Jason Justin . LOC: [facility] U#:[id number] AGE/SX: 84/M ROOM: RE10/28/[address]: Brent Fuchs, : 1940 BED: DIS: 10/28/2024 SPEC #: [id number] RECD: 10/28/24 10:04 STATUS: MARYLIN REPepe #: [id number] WALI: 10/28/24 07:[address]: Shila,Brent Montalvo DEPT: [facility] Surgical RECD BY: Fallon Rondon ENTERED: 10/28/24 10:04 SP TYPE: Surgical OTHR DR: Arnold Fernández MD Tissues: A - Bladder Biopsy B - Bladder Biopsy Procedures: Hematoxylin and Eosin Stain Gross and Microscopic Level 4
--- NOTE | 2024-10-28 07:47 | W.PM.PROC2 ---
Procedure Note - Detailed Date of Procedure 10/28/24 Pre-op Diagnosis bladder cancer Post-op Diagnosis Same Procedure Performed Cystoscopy with bladder biopsy and fulguration Surgeon Brent Fuchs MD Anesthesia General Description of Procedure Patient was taken to the operative suite correctly identified. Once anesthesia was obtained he was placed in dorsal lithotomy position and prepped and draped usual sterile fashion. The meatus was dilated up to 24 Syriac. A 22 Syriac scope was then inserted into the urethra. There were no strictures. The bladder itself was then inspected. He had 2 small papillary lesions each less than 1 cm along the posterior wall. Using a cold cup biopsy these were biopsied and the base fulgurated with a Bugbee. He then had some irregularity along the left lateral wall which was also biopsied. This was sent as a separate specimen. The area was then fulgurated in addition. There was good hemostasis at termination of procedure. Bladder was drained. 2% viscous lidocaine was inserted into the urethra patient is taken recovery stable condition. He is to call for path results in 1 week. This completes dictation. Please send a copy of op note to my office Estimated Blood Loss 0 Drains No Packing No Pathology Yes Complications No immediate complications Condition Stable Disposition PACU
[2024-10-28 07:57] LABS: Glucose Point of Care 119 mg/dl (65-105)
== END 2024-10-28 09:15 | disposition home or self-care (01) ==
PROVIDERS: PCP Family Medicine Adolescent Medicine; Visit Provider Urology
PROC: 0TBB8ZX Excision of Bladder, Via Natural or Artificial Opening Endoscopic, Diagnostic (ICD-10-PCS; CPT 52204; principal; 2024-10-28 07:30)
DX: C67.4 Malignant neoplasm of posterior wall of bladder (principal); C67.2 Malignant neoplasm of lateral wall of bladder; I12.9 Hypertensive chronic kidney disease with stage 1 through stage 4 chronic kidney disease, or unspecified chronic kidney disease; N18.30 Chronic kidney disease, stage 3 unspecified; Z79.84 Long term (current) use of oral hypoglycemic drugs; Z87.891 Personal history of nicotine dependence
CPT/HCPCS: 52204; 82948; 88305; J0690; J2405; J2704; J7120